=== PATIENT | female | born 1965 | race Caucasian/White ===

== ENCOUNTER 2016-05-28 15:52 | Observation (INO) | payer BC ==
[~2016-05-28] VITALS: Ht 172.7 cm; Wt 77.4 kg
[~2016-05-28 15:52] MED LIST: ATV/1 PO; CLMTP5 TOP; ESCI1TAB10 PO; RIZA10TA18 PO; WARF2TAB PO
[2016-05-28] MEDS ORDERED: MoRPHine SULFATE 4 MG/ML 1 ML CARP\\VIAL IV STA (16:43)
[2016-05-28] MEDS ORDERED: ONDANSETRON INJ 2 MG/ML 2 ML VIAL IV STA (16:43)
[2016-05-28] MEDS ORDERED: SODIUM CHLORIDE 0.9% 1000ML 1,000 ML IV STA (16:43)
[2016-05-28 17:11] LABS: BASO % 0.3 %; BASO ABS # 0.02 K/uL (0-0.2); COMPLETE YES; EOS % 1.6 %; HEMATOCRIT 45.4 % (37-47); IG% 0.1 %; LYMPH % 25.3 %; LYMPH ABS # 1.75 K/uL (1.2-3.4); MEAN CELL VOLUME 94.4 fL (80-100); MEAN CORPUSCULAR HEMOGLOBIN 32.8 pg (25-34); MEAN CORPUSCULAR HGB CONC 34.8 g/dl (32-36); MEAN PLATELET VOLUME 9.4 fL (7.4-10.4); MONO % 7.5 %; NEUT % 65.2 %; PLATELET COUNT 211 K/uL (130-400); RED BLOOD COUNT 4.81 M/uL (4.2-5.4); WHITE BLOOD COUNT 6.92 K/uL (4.8-10.8)
[2016-05-28 17:35] LABS: BUN/CREATININE RATIO 26.9 (10-20); CALCIUM 9.1 mg/dl (8.5-10.1); CREATININE 0.78 mg/dl (0.60-1.20); MAGNESIUM 2.3 mg/dl (1.8-2.4); POTASSIUM 3.6 mmol/L (3.5-5.1)
[2016-05-28 17:38] LABS: C-REACTIVE PROTEIN 3.93 mg/dl (0-0.29)
[2016-05-28] MEDS ORDERED: HYDR-3714 PO (17:57)
[2016-05-28] MEDS ORDERED: GABA1CAP4 PO (17:57)
[2016-05-28] MEDS ORDERED: LXP/20 PO (17:57)
[2016-05-28] MEDS ORDERED: ATV1 PO (17:57)
[2016-05-28] MEDS ORDERED: PREG75CA PO (17:57)
[2016-05-28] MEDS ORDERED: MXL10 PO (17:57)
[2016-05-28] MEDS ORDERED: OPTIRAY 320 IV PRN (18:00)
[2016-05-28] MEDS ORDERED: HYDROmorphone INJ 1 MG/ML SYR IV STA (18:06)
[2016-05-28 18:16] LABS: URINE APPEARANCE CLEAR (CLEAR); URINE BILIRUBIN NEG (NEG); URINE COLOR YELLOW; URINE EPITHELIAL CELL AUTO >30 /lpf (0-5); URINE NITRITE NEG (NEG); URINE SPECIFIC GRAVITY 1.009 (1.000-1.030); UROBILINOGEN NEG (NEG); ZZUR CULT IF INDIC CLEAN CATCH NO
[2016-05-28 18:20] LABS: MANUAL MICROSCOPIC REQUIRED? NO; REVIEW REQ? NO
--- NOTE | 2016-05-28 20:09 | DIAGNOSTIC IMAGING REPORT ---
CT OF THE ABDOMEN AND PELVIS WITH CONTRAST CLINICAL HISTORY: Right lower quadrant abdominal pain. COMPARISON STUDY: None. TECHNIQUE: Following IV administration of 93 mL of Optiray-320, axial images of the abdomen and pelvis were obtained from the lung bases to the proximal femurs. Images were reviewed in the axial, sagittal, and coronal planes. IV contrast was administered without complication. Oral contrast was administered. CT DOSE: 359.56 mGy.cm FINDINGS: The liver, spleen, adrenal glands, kidneys and pancreas are normal. There are post surgical findings within the spine. There is no evidence for a bowel obstruction. A left hip arthroplasty is noted. Note is made of sigmoid diverticulosis without evidence for acute diverticulitis. The appendix is mildly dilated and fluid-filled. There is mild periappendiceal infiltration. There is mild enhancement of the appendiceal wall. No free air or abscess is present. There is no lymphadenopathy. IMPRESSION: Mild acute appendicitis. No free air or abscess. Electronically signed by: Stephen Becker M.D. 05/28/2016 8:08 PM Dictated Date/Time: 05/28/2016 8:05 PM
[2016-05-28] MEDS ORDERED: FENTANYL CITRATE INJ 50 MCG/1 ML 2 ML VIAL ONE ×3 (21:42→22:39)
[2016-05-28] MEDS ORDERED: MIDAZOLAM HCL 1 MG/ML 2ML VIAL ONE (21:42)
[2016-05-28] MEDS ORDERED: ROCURONIUM BROMIDE 10 MG/ML 5 ML VIAL ONE (21:44)
[2016-05-28] MEDS ORDERED: NEOSTIGMINE METHYLSULFATE 5 MG/5 ML SYR ONE (21:44)
[2016-05-28] MEDS ORDERED: PROPOFOL IV EMULSION 10 MG/ML 20 ML VIAL IV ONE (21:44)
[2016-05-28] MEDS ORDERED: SUCCINYLCHOLINE CHLORIDE 20 MG/ML 10 ML VIAL IV ONE (21:44)
[2016-05-28] MEDS ORDERED: ONDANSETRON INJ 2 MG/ML 2 ML VIAL ONE (21:44)
[2016-05-28] MEDS ORDERED: DEXAMETHASONE SOD INJ 4 MG/ML VIAL ONE (21:44)
[2016-05-28] MEDS ORDERED: GLYCOPYRROLATE INJ 0.2 MG/ML VIAL ONE (21:44)
--- NOTE | 2016-05-28 21:59 | History and Physical ---
History & Physical Date May 28, 2016. Chief Complaint abdominal pain History of Present Illness The patient is a 51 year old female with complaints of abdominal pain and a CT scan showing acute appendicitis. She has had pain mainly right sided and associated nausea. She denies fever or chills. She has no urinary symptoms. Past Medical/Surgical History Medical Problems: (1) DJD (degenerative joint disease) of hip Additional History Hepatic Disease: No Endocrine Disorder: No Kidney Disease: No Hypertension: No Heart Disease: No Bleeding Tendencies: No Infectious Diseases: No Other: Interstitial cystitis Chronic back pain GERD DJD s/p SUMA s/p L THR s/p back surgery Allergies Coded Allergies: Amoxicillin (Verified Adverse Reaction, Unknown, thrust, yeast infx, ) Cephalexin (Verified Adverse Reaction, Unknown, THRUSH, YEAST INFX, 11/23/15 ) Ciprofloxacin (Verified Adverse Reaction, Unknown, THRUSH, YEAST INFX, 11/22) Clotrimazole (Verified Adverse Reaction, Unknown, THRUSH, 11/23/15) Doxycycline (Verified Adverse Reaction, Unknown, THRUSH, YEAST INFX, ) Metronidazole (Verified Adverse Reaction, Unknown, THRUSH, 11/15/15) Home Medications Scheduled Escitalopram Oxalate (Escitalopram Oxalate), 20 MG PO QAM Estradiol (Estradiol), 1 PATCH TOP WEEKLY Scheduled PRN Gabapentin (Gabapentin), 300 MG PO BID PRN for Pain Hydrocodon/Acetaminophen 7.5MG/300MG (Vicodin Es (7.5MG/300MG)), 1 TAB PO Q8 PRN for Pain Lorazepam (Lorazepam), 1 MG PO HS PRN for Anxiety and/or Sedation Pregabalin (Lyrica), 75 MG PO BID PRN for Pain Rizatriptan Benzoate (Rizatriptan Benzoate), 10 MG PO UD PRN for Migraine Physical Examination Skin: warm/dry, no rash Eyes: normal inspection, EOMI, sclerae normal ENT: normal ENT inspection Head: normocephalic, atraumatic Neck: supple, no adenopathy, trachea midline Respiratory/Chest: lungs clear, normal breath sounds, no respiratory distress Cardiovascular: regular rate, rhythm, no edema, no murmur Abdomen / GI: normal bowel sounds, + pertinent finding (RLQ tenderness) Back: normal inspection Extremities: normal inspection Genitourinary - Female: external genitalia normal Neurologic/Psych: no motor/sensory deficits, alert, oriented x 3 Addiitonal Comments: CT OF THE ABDOMEN AND PELVIS WITH CONTRAST CLINICAL HISTORY: Right lower quadrant abdominal pain. COMPARISON STUDY: None. TECHNIQUE: Following IV administration of 93 mL of Optiray-320, axial images of the abdomen and pelvis were obtained from the lung bases to the proximal femurs. Images were reviewed in the axial, sagittal, and coronal planes. IV contrast was administered without complication. Oral contrast was administered. CT DOSE: 359.56 mGy.cm FINDINGS: The liver, spleen, adrenal glands, kidneys and pancreas are normal. There are post surgical findings within the spine. There is no evidence for a bowel obstruction. A left hip arthroplasty is noted. Note is made of sigmoid diverticulosis without evidence for acute diverticulitis. The appendix is mildly dilated and fluid-filled. There is mild periappendiceal infiltration. There is mild enhancement of the appendiceal wall. No free air or abscess is present. There is no lymphadenopathy. IMPRESSION: Mild acute appendicitis. No free air or abscess. Diagnosis Acute appendicitis ASA Classification: ASA Class II Plan of Treatment -IVF -IV mefoxin -to OR for lap appendectomy
[2016-05-28] MEDS ORDERED: POLYETHYLENE (MIRALAX) 17 GM PACK PO PRN (22:00)
[2016-05-28] MEDS ORDERED: ACETAMINOPHEN 325 MG TAB PO PRN (22:00)
[2016-05-28] MEDS ORDERED: ONDANSETRON INJ 2 MG/ML 2 ML VIAL IV PRN (22:00)
[2016-05-28] MEDS ORDERED: MoRPHine SULFATE 2 MG/ML CARP IV PRN (22:00)
[2016-05-28] MEDS ORDERED: BUPIVACAINE/EPINEPHRINE 0.5% MPF 1:200,000 30 ML VIAL ONE (22:00)
[2016-05-28] MEDS ORDERED: MAGNESIUM HYDROXIDE SUSP 30 ML UDC PO PRN (22:00)
[2016-05-28] MEDS ORDERED: ALUMINUM/MAGNESIUM/SIMETH (MAALOX MAX) 30 ML UDC PO PRN (22:00)
[2016-05-28] MEDS ORDERED: ZOLPIDEM TARTRATE 5 MG TAB PO PRN (22:00)
[2016-05-28] MEDS ORDERED: RIZATRIPTAN BENZOATE 10 MG TAB PO PRN (22:15)
[2016-05-28] MEDS ORDERED: GABAPENTIN 300 MG CAP PO PRN (22:15)
[2016-05-28] MEDS ORDERED: LORAZEPAM 1 MG TAB PO PRN (22:15)
[2016-05-28] MEDS ORDERED: PREGABALIN 75 MG CAP PO PRN (22:15)
[2016-05-28] MEDS ORDERED: EpHEDrine SULFATE 50MG/5ML SYR ONE (22:31)
[2016-05-28] MEDS ORDERED: IV FLUIDS COMPLETED PRN (22:45)
--- NOTE | 2016-05-28 22:54 | [facility] Post Operative Brief Note ---
Immediate Operative Summary Operative Date May 28, 2016. Pre-Operative Diagnosis Acute Appendicitis Post-Operative Diagnosis Acute Appendicitis Procedure(s) Performed Laparoscopic Appendectomy Surgeon Dr. Jonathan Yoon Disaster Recovery Analyst Surgeon(s) None Estimated Blood Loss 15ml Findings Above Specimens A. Appendix Drains none Anesthesia GETA w/marcaine Complication(s) None Disposition Recovery Room / PACU
[2016-05-28] MEDS: MoRPHine SULFATE 4 MG/ML 1 ML CARP\\VIAL IV PRN (23:31)
--- NOTE | 2016-05-28 23:48 | Anesthesiology Progress Note ---
Anesthesia Post Op Note Date & Time May 28, 2016 at 23:47 Vital Signs Pain Intensity: 8.0 Vital Signs Past 12 Hours Date Time Temp Pulse Resp B/P Pulse Ox O2 Delivery O2 Flow Rate FiO2 05/28/16 23:40 67 15 120/74 94 Room Air 05/28/16 23:30 69 19 115/72 100 Mask 5 05/28/16 23:20 67 16 113/60 100 Mask 5 05/28/16 23:10 35.8 75 16 109/52 100 Mask 5 05/28/16 21:32 66 20 147/40 97 Room Air 05/28/16 19:49 66 18 132/78 96 Room Air 05/28/16 18:00 76 18 118/72 96 Room Air 05/28/16 16:20 36.5 85 22 134/56 96 Room Air Notes Mental Status: alert / awake / arousable, participated in evaluation Pt Amnestic to Procedure: Yes Nausea / Vomiting: adequately controlled Pain: adequately controlled, improving with treatment Airway Patency, RR, SpO2: stable & adequate BP & HR: stable & adequate Hydration State: stable & adequate Anesthetic Complications: no major complications apparent Patient with c/o abdominal pain which is improving with IV opioids and also c/o sore throat (likely from intubation/ETT/OG tube). Informed to have icechips and cool liquids and should improve over the next 1-2 days. All questions answered.
[2016-05-29] VITALS (8 sets, daily range): BP systolic 82–114; BP diastolic 47–77; PULSE 61–67; TEMP 36–36.6; O2SAT 91–94; Ht 172.7 cm; Wt 77.4 kg
[2016-05-29] MEDS ORDERED: HYDROmorphone INJ 1 MG/ML SYR IV PRN
[2016-05-29] MEDS ORDERED: FENTANYL CITRATE INJ 50 MCG/1 ML 2 ML VIAL IV PRN
[2016-05-29] MEDS ORDERED: ATROPINE SULFATE 0.1 MG/ML 5ML SYR IV PRN
[2016-05-29] MEDS ORDERED: EpHEDrine SULFATE INJ 50 MG/ML AMP IV PRN
[2016-05-29] MEDS ORDERED: ONDANSETRON INJ 2 MG/ML 2 ML VIAL IV PRN
[2016-05-29] MEDS: MoRPHine SULFATE 4 MG/ML 1 ML CARP\\VIAL IV PRN (00:27)
[2016-05-29] MEDS: LACTATED RINGER'S 1000ML 1,000 ML IV SCH ×2 (00:28→08:37)
--- NOTE | 2016-05-29 00:30 | OPERATIVE REPORT ---
DATE OF OPERATION: 05/28/2016 PREOPERATIVE DIAGNOSIS: Acute appendicitis. POSTOPERATIVE DIAGNOSIS: Same. PROCEDURE PERFORMED: Laparoscopic appendectomy. SURGEON: Dr. Jonathan Yoon. DRAFTER: None. ANESTHESIA: General endotracheal with 0.5% Marcaine with epinephrine local. ESTIMATED BLOOD LOSS: 15 mL. DRAINS: None. COMPLICATIONS: None. SPECIMENS: Appendix to pathology. INDICATION FOR PROCEDURE: This is a 51-year-old female, who came in complaining of abdominal pain, underwent a complete workup with a CT scan that showed acute appendicitis. We talked to her in detail about this and recommended a laparoscopic appendectomy. We went over the risks in detail. DESCRIPTION OF PROCEDURE: The patient was taken to the OR and underwent excellent general endotracheal anesthesia. Abdomen was prepped and draped in normal sterile fashion. A transverse supraumbilical incision was made. Attention was placed on the anterior abdominal wall and a Veress needle was inserted without difficulty. Good pneumoperitoneum was achieved to 15 mmHg pressure. A visualized 11 port was then placed. A 5 suprapubic, 5 right upper quadrant and a 12 left lower quadrant ports were placed in normal fashion. A good diagnostic lap was performed. She had some adhesions, which were taken down. Her cecum was identified. A blunt grasper was placed on the tenia of the cecum and this was placed on tension. The appendix was rolled back and was retrocecal. Using a Harmonic scalpel, the base of the appendix was identified, a window was created in the mesentery and this enabled a SHIRLENE stapler to transect the appendix at its base. Once this was done, attention was placed on the base of the appendix and the rest of the appendix was freed using a Harmonic scalpel. Once the entire appendix was freed up, this was brought out with an Endobag and sent for pathologic evaluation. Pneumoperitoneum was reestablished. The abdomen was irrigated out with a liter of saline. There was some bleeding on the anterior abdominal wall where the adhesions were taken down. This was cauterized. There was no further bleeding during the case. This 15 mL of blood loss total. The terminal ileum appeared to be normal and no pelvic abnormalities. The appendix was really not perforated or gangrenous. Ports were then removed. Pneumoperitoneum was decompressed. 0 Vicryl was used to close the fascial defect at the 12 and 11 port. 0.5% Marcaine with epinephrine local was used to create a local field block. Interrupted Vicryl was used to close the skin. Steri-Strips and benzoin were used to reinforce the incision. Sterile dressings were applied. The patient tolerated the procedure well without any complications, sent to post-recovery for a period of observation and then will be sent to the floor for her care. I attest to the content of the Intraoperative Record and any orders documented therein. Any exceptions are noted below. NUSRAT
[2016-05-29] MEDS: CEFOXITIN IV 2,000 MG in DEXTROSE 5% 50ML 50 ML IV SCH ×2 (00:47→08:37)
[2016-05-29] MEDS: OXYCODONE/ACETAMINOPHEN 5-325 TAB PO PRN ×2 (03:37→07:35)
[2016-05-29] MEDS ORDERED: ESCITALOPRAM OXALATE 20 MG TAB PO SCH (09:00)
[2016-05-29] MEDS ORDERED: OXYC-57 PO (09:21)
--- NOTE | 2016-05-29 09:21 | Surgery Progress Note ---
Surgery Progress Note Date of Service May 29, 2016. Subjective Post OP Day: 1 + diet (regular), + feeling well, + flatus, No bowel movement, No complaints, No nausea, No vomiting Objective Vital Signs: Date Time Temp Pulse Resp B/P Pulse Ox O2 Delivery O2 Flow Rate FiO2 05/29/16 07:23 Room Air 05/29/16 07:01 36.6 62 16 82/47 91 Room Air 05/29/16 03:15 36.6 61 16 89/55 94 Room Air 96/60 05/29/16 02:15 36.6 63 16 94/61 92 Room Air 05/29/16 01:15 36.4 62 16 101/66 93 Room Air 05/29/16 00:45 36.0 62 16 114/77 94 Room Air 05/29/16 00:25 Room Air 05/29/16 00:25 36.0 66 16 100/62 Room Air 05/29/16 00:25 93 Room Air 05/29/16 00:15 36.0 67 16 100/62 93 Room Air 05/29/16 00:00 36.4 67 15 120/78 92 Room Air 05/28/16 23:50 72 15 117/75 94 Room Air 05/28/16 23:40 67 15 120/74 94 Room Air 05/28/16 23:30 69 19 115/72 100 Mask 5 05/28/16 23:20 67 16 113/60 100 Mask 5 05/28/16 23:10 35.8 75 16 109/52 100 Mask 5 05/28/16 21:32 66 20 147/40 97 Room Air 05/28/16 19:49 66 18 132/78 96 Room Air 05/28/16 18:00 76 18 118/72 96 Room Air 05/28/16 16:20 36.5 85 22 134/56 96 Room Air General Appearance: WD/WN, no apparent distress Head: normocephalic, atraumatic Neck: supple, trachea midline Respiratory/Chest: lungs clear Cardiovascular: regular rate, rhythm, no gallop, no murmur Abdomen: normal bowel sounds, non distended, soft, + tenderness Incision(s): clean, dry, intact Extremities: non-tender, no pedal edema Laboratory Results: Results Past 24 Hours Test 05/28/16 17:00 05/28/16 18:02 Range/Units White Blood Count 6.92 4.8-10.8 K/uL Red Blood Count 4.81 4.2-5.4 M/uL Hemoglobin 15.8 12.0-16.0 g/dL Hematocrit 45.4 37-47 % Mean Corpuscular Volume 94.4 80-100 fL Mean Corpuscular Hemoglobin 32.8 25-34 pg Mean Corpuscular Hemoglobin Concent 34.8 32-36 g/dl Platelet Count 211 130-400 K/uL Mean Platelet Volume 9.4 7.4-10.4 fL Neutrophils (%) (Auto) 65.2 % Lymphocytes (%) (Auto) 25.3 % Monocytes (%) (Auto) 7.5 % Eosinophils (%) (Auto) 1.6 % Basophils (%) (Auto) 0.3 % Neutrophils # (Auto) 4.51 1.4-6.5 K/uL Lymphocytes # (Auto) 1.75 1.2-3.4 K/uL Monocytes # (Auto) 0.52 0.11-0.59 K/uL Eosinophils # (Auto) 0.11 0-0.5 K/uL Basophils # (Auto) 0.02 0-0.2 K/uL RDW Standard Deviation 46.2 36.4-46.3 fL RDW Coefficient of Variation 13.3 11.5-14.5 % Immature Granulocyte % (Auto) 0.1 % Immature Granulocyte # (Auto) 0.01 0.00-0.02 K/uL Erythrocyte Sedimentation Rate 27 0-21 mm/hr Sodium Level 140 136-145 mmol/L Potassium Level 3.6 3.5-5.1 mmol/L Chloride Level 104 98-107 mmol/L Carbon Dioxide Level 29 21-32 mmol/L Anion Gap 7.0 3-11 mmol/L Blood Urea Nitrogen 21 7-18 mg/dl Creatinine 0.78 0.60-1.20 mg/dl Est Creatinine Clear Calc Drug Dose 91.2 ml/min Estimated GFR () 100.6 Estimated GFR (Non- 86.8 BUN/Creatinine Ratio 26.9 10-20 Random Glucose 74 70-99 mg/dl Calcium Level 9.1 8.5-10.1 mg/dl Magnesium Level 2.3 1.8-2.4 mg/dl Total Bilirubin 0.4 0.2-1 mg/dl Aspartate Amino Transf (AST/SGOT) 21 15-37 U/L Alanine Aminotransferase (ALT/SGPT) 39 12-78 U/L Alkaline Phosphatase 125 45-117 U/L C-Reactive Protein 3.93 0-0.29 mg/dl Total Protein 7.3 6.4-8.2 gm/dl Albumin 3.7 3.4-5.0 gm/dl Globulin 3.6 2.5-4.0 gm/dl Albumin/Globulin Ratio 1.0 0.9-2 Lipase 93 73-393 U/L Urine Color YELLOW Urine Appearance CLEAR CLEAR Urine pH 7.0 4.5-7.5 Urine Specific [place] 1.009 1.000-1.030 Urine Protein NEG NEG Urine Glucose (UA) NEG NEG Urine Ketones NEG NEG Urine Occult Blood TRACE NEG Urine Nitrite NEG NEG Urine Bilirubin NEG NEG Urine Urobilinogen NEG NEG Urine Leukocyte Esterase NEG NEG Urine WBC (Auto) 1-5 0-5 /hpf Urine RBC (Auto) 0-4 0-4 /hpf Urine Hyaline Casts (Auto) 1-5 0-5 /lpf Urine Epithelial Cells (Auto) >30 0-5 /lpf Urine Bacteria (Auto) NEG NEG Assessment & Plan acute appendicitis -doing well -discharge home
--- NOTE | 2016-05-29 09:28 | Discharge Instructions ---
Discharge Instructions Date of Service May 29, 2016. Admission Reason for Admission: Acute Appendicitis Discharge Discharge Diagnosis / Problem: acute appendicitis Discharge Goals Goal(s): Therapeutic intervention Activity Recommendations Activity Limitations: per Instructions/Follow-up section Lifting Limitations: no more than 25 pounds Exercise/Sports Limitations: until after follow-up appointment May Resume Sexual Activity: when tolerated Shower/Bathe: no limitations Driving or Machine Use: resume 3 days after discharge (as long as not taking narcotics) . Current Hospital Diet Patient's current hospital diet: Regular Diet Discharge Diet Recommended Diet: Regular Diet Procedures Procedures Performed: Laparoscopic Appendectomy Pending Studies Studies pending at discharge: no Work Instructions Return To Work: after follow-up Additional Instructions: return on light duty as tolerated Medical Emergencies . Who to Call and When: Medical Emergencies: If at any time you feel your situation is an emergency, please call 911 immediately. . Non-Emergent Contact Non-Emergency issues call your: Primary Care Provider, Surgeon Call Non-Emergent contact if: temperature is above 101.5, your pain is worsening, your pain is unusual for you, your pain is concerning you, wound has increased redness, wound has increased pain, you have any medication questions . "Provider Documentation" section prepared by Jonathan Yoon. VTE Core Measure Inpt VTE Proph given/why not?: SCD's [place] Drug Monitoring Program Search Results: patient reviewed within database
--- NOTE | 2016-05-29 09:46 | DISCHARGE SUMMARY ---
DATE OF DISCHARGE: 05/29/2016 DIAGNOSES: 1. Acute appendicitis. 2. Interstitial cystitis. 3. Degenerative joint disease. 4. Gastroesophageal reflux disease. ATTENDING PHYSICIAN: Dr. Jonathan Yoon. CONSULTS: None. PROCEDURE PERFORMED: Laparoscopic appendectomy on 05/28/2016. HISTORY OF PRESENT ILLNESS: This is a 51-year-old female admitted through the ER with abdominal pain, underwent a complete workup, was found to have acute appendicitis. She was given IV fluids, IV antibiotics, and was taken to the OR for laparoscopic appendectomy. HOSPITAL COURSE: The patient was same-day admission through the ER, was taken straight to the operating room, was found to have an uncomplicated simple appendicitis, underwent laparoscopic appendectomy. Postop, she did well. She was moved to the floor, advanced her diet without difficulty, had no nausea, no vomiting, remained afebrile. She received another dose of her IV antibiotics and continued to progress so that she was discharged to home on postoperative day #1. DISCHARGE MEDICATIONS: Percocet 1 tablet p.o. q. 4 hours p.r.n. pain, escitalopram oxalate 20 mg p.o. daily, estradiol 0.5 mg 1 patch weekly, gabapentin 300 mg p.o. b.i.d. as needed, Vicodin 1 tablet p.o. q. 8 p.r.n. pain, lorazepam 1 mg p.o. at bedtime p.r.n. anxiety, Lyrica 75 mg p.o. b.i.d. p.r.n. pain, rizatriptan benzoate 10 mg p.o. as needed. DIET: Regular as tolerated. ACTIVITY: No strenuous activity for 3 weeks. FOLLOWUP: Follow up in my office in 2 weeks.
--- NOTE | 2016-05-31 16:12 | EMERGENCY ROOM VISIT NOTE ---
History First contact with patient: 16:30 Chief Complaint: ABDOMINAL PAIN Stated Complaint: ACUTE APPENDICITIS History of Present Illness The patient is a 51 year old female who presents to the Emergency Department by private vehicle and directed to the emergency Department for evaluation of her RIGHT lower quadrant abdominal pain. The patient reports that she developed epigastric abdominal discomfort yesterday. She reports the pain is now focused in the RIGHT lower quadrant. She reports that she was seen at her primary care provider's office today and directed to the emergency Department for further evaluation and management. The patient reports prior history of hysterectomy. There is been no other previous abdominal surgeries. She rates her current discomfort is 7/10. She denies any fevers, chills, headaches, dizziness, lightheadedness, chest pain, palpitations, shortness of breath, hematochezia, melena, hematuria, or dysuria. Review of Systems A complete 10-point Review of Systems was discussed with the patient, with pertinent positives and negatives listed in the History of Present Illness. All remaining Review of Systems questions can be considered negative unless otherwise specified. Past Medical/Surgical History Medical Problems: (1) Acute appendicitis (2) DJD (degenerative joint disease) of hip Social History Smoking Status: Current Every Day Smoker Smokeless Tobacco Use: No Drug Use: none Marital Status: Housing Status: lives with family Current/Historical Medications Scheduled Escitalopram Oxalate (Escitalopram Oxalate), 20 MG PO QAM Estradiol (Estradiol), 1 PATCH TOP WEEKLY Scheduled PRN Gabapentin (Gabapentin), 300 MG PO BID PRN for Pain Hydrocodon/Acetaminophen 7.5MG/300MG (Vicodin Es (7.5MG/300MG)), 1 TAB PO Q8 PRN for Pain Lorazepam (Lorazepam), 1 MG PO HS PRN for Anxiety and/or Sedation Oxycodone/Acetaminophen 5MG/325MG (Percocet 5MG/325MG), 1 TABLET PO Q4H PRN for Pain Pregabalin (Lyrica), 75 MG PO BID PRN for Pain Rizatriptan Benzoate (Rizatriptan Benzoate), 10 MG PO UD PRN for Migraine Allergies Coded Allergies: Amoxicillin (Verified Adverse Reaction, Unknown, thrust, yeast infx, ) Cephalexin (Verified Adverse Reaction, Unknown, THRUSH, YEAST INFX, 11/23/15 ) Ciprofloxacin (Verified Adverse Reaction, Unknown, THRUSH, YEAST INFX, 11/22) Clotrimazole (Verified Adverse Reaction, Unknown, THRUSH, 11/23/15) Doxycycline (Verified Adverse Reaction, Unknown, THRUSH, YEAST INFX, ) Metronidazole (Verified Adverse Reaction, Unknown, THRUSH, 11/15/15) Physical Exam Vital Signs Date Time Temp Pulse Resp B/P Pulse Ox O2 Delivery O2 Flow Rate FiO2 05/28/16 21:32 66 20 147/40 97 Room Air 05/28/16 19:49 66 18 132/78 96 Room Air 05/28/16 18:00 76 18 118/72 96 Room Air 05/28/16 16:20 36.5 85 22 134/56 96 Room Air Pain Rating (0-10): 7 Physical Exam VITAL SIGNS - Vital signs and nursing notes were reviewed. GENERAL - 51-year-old female appearing her stated age who is in no acute distress. Communicates well with provider and answers questions appropriately. LUNGS - Chest wall symmetric without accessory muscle use, intercostals retractions, or central cyanosis. Normal vesicular breath sounds CTA B/L. No wheezes, rales, or rhonchi appreciated. CARDIAC - RRR with S1/S2. No murmur, rubs, or gallops appreciated. ABDOMEN - Abdominal contour flat and without pulsations or visible masses. BS normoactive all four quadrants. Moderate tenderness to palpation appreciated in the RIGHT lower quadrant. No guarding. No Rebound Tenderness. Negative Rovsing' s. Negative Méndez's. No palpable masses, hepatosplenomegaly, or ascites noted. PSYCH - A&Ox3 and cooperates fully with examiner. Pt is very pleasant and interacts well with examiner. Medical Decision & Procedures ER Provider Diagnostic Interpretation: Radiological imaging and reports were reviewed by myself. Radiologist's Interpretation as follows: CT OF THE ABDOMEN AND PELVIS WITH CONTRAST CLINICAL HISTORY: Right lower quadrant abdominal pain. COMPARISON STUDY: None. TECHNIQUE: Following IV administration of 93 mL of Optiray-320, axial images of the abdomen and pelvis were obtained from the lung bases to the proximal femurs. Images were reviewed in the axial, sagittal, and coronal planes. IV contrast was administered without complication. Oral contrast was administered. CT DOSE: 359.56 mGy.cm FINDINGS: The liver, spleen, adrenal glands, kidneys and pancreas are normal. There are post surgical findings within the spine. There is no evidence for a bowel obstruction. A left hip arthroplasty is noted. Note is made of sigmoid diverticulosis without evidence for acute diverticulitis. The appendix is mildly dilated and fluid-filled. There is mild periappendiceal infiltration. There is mild enhancement of the appendiceal wall. No free air or abscess is present. There is no lymphadenopathy. IMPRESSION: Mild acute appendicitis. No free air or abscess. Laboratory Results 05/28/16 17:00 Red Blood Count 4.81, Mean Corpuscular Volume 94.4, Mean Corpuscular Hemoglobin 32.8, Mean Corpuscular Hemoglobin Concent 34.8, Mean Platelet Volume 9.4, Neutrophils (%) (Auto) 65.2, Lymphocytes (%) (Auto) 25.3, Monocytes (%) (Auto) 7.5, Eosinophils (%) (Auto) 1.6, Basophils (%) (Auto) 0.3, Neutrophils # (Auto) 4.51, Lymphocytes # (Auto) 1.75, Monocytes # (Auto) 0.52, Eosinophils # (Auto) 0.11, Basophils # (Auto) 0.02 05/28/16 17:00 Test 05/28/16 17:00 05/28/16 18:02 White Blood Count 6.92 K/uL (4.8-10.8) Red Blood Count 4.81 M/uL (4.2-5.4) Hemoglobin 15.8 g/dL (12.0-16.0) Hematocrit 45.4 % (37-47) Mean Corpuscular Volume 94.4 fL (80-100) Mean Corpuscular Hemoglobin 32.8 pg (25-34) Mean Corpuscular Hemoglobin Concent 34.8 g/dl (32-36) Platelet Count 211 K/uL (130-400) Mean Platelet Volume 9.4 fL (7.4-10.4) Neutrophils (%) (Auto) 65.2 % Lymphocytes (%) (Auto) 25.3 % Monocytes (%) (Auto) 7.5 % Eosinophils (%) (Auto) 1.6 % Basophils (%) (Auto) 0.3 % Neutrophils # (Auto) 4.51 K/uL (1.4-6.5) Lymphocytes # (Auto) 1.75 K/uL (1.2-3.4) Monocytes # (Auto) 0.52 K/uL (0.11-0.59) Eosinophils # (Auto) 0.11 K/uL (0-0.5) Basophils # (Auto) 0.02 K/uL (0-0.2) RDW Standard Deviation 46.2 fL (36.4-46.3) RDW Coefficient of Variation 13.3 % (11.5-14.5) Immature Granulocyte % (Auto) 0.1 % Immature Granulocyte # (Auto) 0.01 K/uL (0.00-0.02) Erythrocyte Sedimentation Rate 27 mm/hr (0-21) Anion Gap 7.0 mmol/L (3-11) Est Creatinine Clear Calc Drug Dose 91.2 ml/min Estimated GFR () 100.6 Estimated GFR (Non- 86.8 BUN/Creatinine Ratio 26.9 (10-20) Calcium Level 9.1 mg/dl (8.5-10.1) Magnesium Level 2.3 mg/dl (1.8-2.4) Total Bilirubin 0.4 mg/dl (0.2-1) Aspartate Amino Transf (AST/SGOT) 21 U/L (15-37) Alanine Aminotransferase (ALT/SGPT) 39 U/L (12-78) Alkaline Phosphatase 125 U/L (45-117) C-Reactive Protein 3.93 mg/dl (0-0.29) Total Protein 7.3 gm/dl (6.4-8.2) Albumin 3.7 gm/dl (3.4-5.0) Globulin 3.6 gm/dl (2.5-4.0) Albumin/Globulin Ratio 1.0 (0.9-2) Lipase 93 U/L (73-393) Urine Color YELLOW Urine Appearance CLEAR (CLEAR) Urine pH 7.0 (4.5-7.5) Urine Specific Outlook 1.009 (1.000-1.030) Urine Protein NEG (NEG) Urine Glucose (UA) NEG (NEG) Urine Ketones NEG (NEG) Urine Occult Blood TRACE (NEG) Urine Nitrite NEG (NEG) Urine Bilirubin NEG (NEG) Urine Urobilinogen NEG (NEG) Urine Leukocyte Esterase NEG (NEG) Urine WBC (Auto) 1-5 /hpf (0-5) Urine RBC (Auto) 0-4 /hpf (0-4) Urine Hyaline Casts (Auto) 1-5 /lpf (0-5) Urine Epithelial Cells (Auto) >30 /lpf (0-5) Urine Bacteria (Auto) NEG (NEG) Medications Administered Medications (Trade) Dose Ordered Sig/Lyla Route Start Time Stop Time Status Last Admin Dose Admin Sodium Chloride (Nss 1000ml) 1,000 ml @ 200 mls/hr Q5H STAT IV 05/28/16 16:43 05/28/16 21:42 DC 05/28/16 17:13 200 MLS/HR Morphine Sulfate (MoRPHine SULFATE INJ) 4 mg NOW STAT IV 05/28/16 16:43 05/28/16 16:45 DC 05/28/16 17:12 4 MG Ondansetron HCl (Zofran Inj) 4 mg NOW STAT IV 05/28/16 16:43 05/28/16 16:45 DC 05/28/16 17:12 4 MG Hydromorphone HCl 1 mg 1 mg NOW STAT IV 05/28/16 18:06 05/28/16 18:07 DC 05/28/16 18:33 1 MG Lactated Ringer's (Lr 1000ml) 1,000 ml @ 100 mls/hr Q10H IV 05/28/16 21:59 05/29/16 10:35 DC 05/29/16 08:37 100 MLS/HR Morphine Sulfate (MoRPHine SULFATE INJ) 2 mg Q1H PRN IV 05/28/16 22:00 05/29/16 10:35 DC 05/29/16 05:46 2 MG Oxycodone/ Acetaminophen (Percocet 5-325mg Tab) `1-2 tabs for pain 1 tab ... Q4H PRN PO 05/28/16 22:00 05/29/16 10:35 DC 05/29/16 07:35 2 TAB Bupivacaine HCl/ Epinephrine Bitart (Sensorcaine/ Epinephrine 0.5% Mpf 1:200,000) 30 ml STK-MED ONCE .ROUTE 05/28/16 22:00 05/28/16 22:03 DC 05/28/16 22:00 20 ML ED Course Patient was seen and evaluated by myself. Labs were drawn, saline lock in place. Patient was hydrated with normal saline at a rate of 200 mL per hour. She was treated with 4 mg morphine and 4 mg Zofran intravenously for pain. CT the abdomen and pelvis with IV and oral contrast was ordered. Laboratory results demonstrate no acute leukocytosis, worrisome anemia, or bandemia. The patient's ESR and CRP are both elevated. Urinalysis does not suggest infection. The patient was treated with an additional 1 mg Dilaudid for continued pain. CT results as above. Laboratory results and imaging studies were reviewed with the patient who acknowledges understanding. I did discuss the case with general surgery who agrees to admit the patient for laparoscopic appendectomy. Patient admitted in stable condition. Medical Decision Given the patient's presentation and exam findings, I did elect to perform the above-mentioned workup. The patient presents today with pain to the RIGHT lower quadrant. She has no fever. There is no leukocytosis. She has persistent reproducible pain in the RIGHT lower quadrant area. CT confirms suspicion of acute appendicitis. Her pain was adequately controlled the emergency department. She was admitted to general surgery for intervention. Patient admitted in stable condition. In the evaluation and treatment of this patient, the following differential diagnoses were considered: Gastritis, gastritis, duodenitis, cholecystitis, ascending cholangitis, choledocholithiasis, amongst others. Departure Information Dispostion Admitted as an inpatient Condition FAIR Prescriptions Oxycodone/Acetaminophen 5MG/325MG (PERCOCET 5MG/325MG) Tab 1 TABLET PO Q4H Y for Pain, #30 TAB Prov: Jonathan Yoon M.D. 05/29/16 Referrals Martita Wilkerson DO (PCP) Forms Call Back Authorization, HOME CARE DOCUMENTATION FORM, IMPORTANT VISIT INFORMATION Patient Instructions [facility] Work Instructions Return To Work: after follow-up Additional Work Instructions: return on light duty as tolerated
== END 2016-05-29 10:34 | disposition home or self-care (01) ==
LOC: ENRESERVTM → ENRESERVDT → C.EDB 15:53 → C.MSW 22:02
PROVIDERS: ADMIT Surgery; ATTEND Surgery
DX: K35.80 Unspecified acute appendicitis (principal); N30.10 Interstitial cystitis (chronic) without hematuria; M16.10 Unilateral primary osteoarthritis, unspecified hip; K21.9 Gastro-esophageal reflux disease without esophagitis

== ENCOUNTER → 2016-07-16 | Outpatient (CLI) | payer BC ==
[~2016-07-16] MED LIST changes: -ATV/1 PO; +ATV1 PO; -ESCI1TAB10 PO; +GABA1CAP4 PO; +HYDR-3714 PO; +LXP/20 PO; +OXYC-57 PO; +PREG75CA PO; -RIZA10TA18 PO; +RIZA10TA21 PO; -WARF2TAB PO
== END | disposition home or self-care (01) ==
LOC: C.RDSM 14:45
PROVIDERS: ATTEND Physical Medicine & Rehabilitation Sports Medicine
DX: M25.552 Pain in left hip (principal); Z96.642 Presence of left artificial hip joint

== ENCOUNTER → 2016-10-15 | Outpatient (CLI) | payer BC ==
[~2016-10-15] MED LIST changes: +MXL10 PO; -OXYC-57 PO; -RIZA10TA21 PO
--- NOTE | 2016-10-15 15:42 | MAMMOGRAPHY REPORT ---
BILATERAL DIGITAL SCREENING MAMMOGRAM TOMOSYNTHESIS WITH CAD: 10/15/2016 CLINICAL HISTORY: Routine screening. TECHNIQUE: Breast tomosynthesis in addition to standard 2D mammography was performed. Current study was also evaluated with a Computer Aided Detection (CAD) system. COMPARISON: Comparison is made to exams dated: 10/10/2015 mammogram, 10/06/2014 mammogram, 09/29/2013 m ammogram, 09/15/2012 mammogram, 09/12/2011 mammogram, and 09/04/2010 mammogram - [facility] nter. BREAST COMPOSITION: The tissue of both breasts is heterogeneously dense, which may obscure small mas ses. FINDINGS: The parenchymal pattern is unchanged. No developing mass, architectural distortion or clus ter of suspicious microcalcifications is seen in either breast. IMPRESSION: ACR BI-RADS CATEGORY 2: BENIGN There is no mammographic evidence of malignancy. A 1 year screening mammogram is recommended. The pa tient will receive written notification of the results. Approximately 10% of breast cancers are not detected with mammography. A negative mammographic report should not delay biopsy if a clinically suggestive mass is present. Angelica Delgado M.D. ay/:10/15/2016 15:24:32 [place] Pumper: Jerica SANTACRUZ(Inna)([place]), [facility] letter sent: Normal 1/2 BI-RADS Code: ACR BI-RADS Category 2: Benign
== END | disposition home or self-care (01) ==
LOC: C.MAMM 14:54
PROVIDERS: ATTEND Family Medicine
DX: Z12.31 Encounter for screening mammogram for malignant neoplasm of breast (principal)

== ENCOUNTER → 2017-10-21 | Outpatient (CLI) | payer BC ==
[~2017-10-21] MED LIST changes: -CLMTP5 TOP; +GABA-1219 PO; -GABA1CAP4 PO; -HYDR-3714 PO; +HYDR-3983 PO; -MXL10 PO; +RIZA10TA21 PO
--- NOTE | 2017-10-22 14:44 | MAMMOGRAPHY REPORT ---
BILATERAL DIGITAL SCREENING MAMMOGRAM TOMOSYNTHESIS WITH CAD: 10/21/2017 CLINICAL HISTORY: Routine screening. Patient has no complaints. TECHNIQUE: The study was acquired using full field digital technology and interpreted from soft copy. Breast tomosynthesis in addition to standard 2D mammography was performed. Current study was also ev aluated with a Computer Aided Detection (CAD) system. COMPARISON: Comparison is made to exams dated: 10/15/2016 mammogram, 10/10/2015 mammogram, 10/06/2014 m ammogram, 09/29/2013 mammogram, 09/15/2012 mammogram, and 09/12/2011 mammogram - [facility] nter. BREAST COMPOSITION: The tissue of both breasts is heterogeneously dense, which may obscure small mass es. FINDINGS: The parenchymal pattern is unchanged. No developing mass, architectural distortion or cluster of susp icious microcalcifications is seen in either breast. IMPRESSION: ACR BI-RADS CATEGORY 2: BENIGN There is no mammographic evidence of malignancy. A 1 year screening mammogram is recommended.( 019) The patient will receive written notification of the results. Some breast cancers are not detected with mammography. A negative mammographic report should not estella y biopsy if a clinically suggestive mass is present. Angelica Delgado M.D. ay/:10/21/2017 17:45:21 Computer System Validation Specialist: RT Hilda(Inna)(M), [facility] letter sent: Normal 1/2 BI-RADS Code: ACR BI-RADS Category 2: Benign
== END | disposition home or self-care (01) ==
LOC: C.MAMM 11:18
PROVIDERS: ATTEND Family Medicine
DX: Z12.31 Encounter for screening mammogram for malignant neoplasm of breast (principal)

== ENCOUNTER 2020-07-17 18:02 | Inpatient (IN) ==
[2020-07-17] MEDS ORDERED: ACETAMINOPHEN 1,000 MG/100 ML VIAL IV STA (18:27)
[2020-07-17] MEDS ORDERED: SODIUM CHLORIDE 0.9% 1000ML 2,000 ML IV ONE (18:27)
[2020-07-17] MEDS ORDERED: ONDANSETRON INJ 2 MG/ML 2 ML VIAL IV STA (18:27)
[2020-07-17] MEDS ORDERED: MoRPHine SULFATE 10 MG/ML CARP/VIAL IV STA ×2 (18:27→19:22)
[2020-07-17] MEDS ORDERED: KETOROLAC TROMETHAMINE 15 MG/ML VIAL IV STA ×2 (18:28→19:22)
[2020-07-17] MEDS ORDERED: MoRPHine SULFATE 2 MG/ML CARP ONE (18:34)
[2020-07-17] MEDS ORDERED: MoRPHine SULFATE 4 MG/ML 1 ML CARP\\VIAL ONE (18:34)
[2020-07-17 18:40] LABS: Basophils # (auto) 0.05 K/uL (0-0.2); Basophils % (auto) 0.6 %; Eosinophils # (auto) 0.26 K/uL (0-0.5); Hematocrit (blood only) 42.4 % (37-47); Hemoglobin 14.5 g/dL (12.0-16.0); Immature Granulocytes # (auto) 0.02 K/uL (0.00-0.02); Immature Granulocytes % (auto) 0.2 %; Lymphocytes # (auto) 3.17 K/uL (1.2-3.4); Mean Corpuscular Hemoglobin 32.7 pg (25-34); Mean Corpuscular Hgb Conc 34.2 g/dL (32-36); Mean Corpuscular Volume 95.5 fL (80-100); Mean Platelet Volume 9.4 fL (7.4-10.4); Monocytes # (auto) 0.86 K/uL (0.11-0.59); Neutrophils # (auto) 4.21 K/uL (1.4-6.5); Neutrophils % (auto) 49.2 %; Platelet Count 288 K/uL (130-400); RDW Standard Deviation 45.6 fL (36.4-46.3); Red Blood Count 4.44 M/uL (4.2-5.4); White Blood Count 8.57 K/uL (4.8-10.8)
[2020-07-17 18:48] LABS: Alanine Aminotransferase 117 U/L (12-78); Albumin Level 3.8 gm/dl (3.4-5.0); Aspartate Aminotransferase 58 U/L (15-37); BUN Creatinine Ratio 25.6 (10-20); Blood Urea Nitrogen 26 mg/dl (7-18); Carbon Dioxide 27 mmol/L (21-32); Chloride 110 mmol/L (98-107); Est GFR (African American) 69.9; Est GFR (Non-African American) 60.3; Glucose 95 mg/dl (70-99); Lipase 96 U/L (73-393); Potassium 3.8 mmol/L (3.5-5.1); Sodium 144 mmol/L (136-145)
[2020-07-17 18:50] LABS: Alkaline Phosphatase 159 U/L (45-117); Bilirubin,Total 0.3 mg/dl (0.2-1); Globulin 3.7 gm/dl (2.5-4.0); Total Protein 7.5 gm/dl (6.4-8.2)
[2020-07-17] MEDS ORDERED: OPTIRAY 300 100mL IV ONE (19:13)
--- NOTE | 2020-07-17 19:43 | CT Scan Report ---
ABDOMEN AND PELVIS CT WITH IV CONTRAST CT DOSE: 356.94 mGy.cm HISTORY: Acute left-sided flank pain left flank pain TECHNIQUE: Multiaxial CT images of the abdomen and pelvis were performed following the IV administrat ion of 89 cc of Optiray, A dose lowering technique was utilized adhering to the principles of ALARA. COMPARISON STUDY: CT abdomen and pelvis 07/13/2020 FINDINGS: Mild bibasilar atelectasis. No pneumatosis or pneumoperitoneum. Imaged inferior cardiac chambers are unremarkable. The spleen, pancreas and adrenal glands are unremarkable. The gallbladder and liver are within normal limits. Patency of the hepatic and portal veins. Punctate nonobstructing right renal calculus redemonstrated. Interval development of moderate left-si ded hydroureteronephrosis with moderate perinephric and periureteral inflammatory stranding. Slightly delayed left-sided nephrogram. Persistent obstructing 7 mm calculus of the distal left ureter on o[address], suboptimally visualized secondary to streak artifact from the left hip total joint arthroplas ty. Pelvic basin phlebolith. Partial distention of the urinary bladder with small focus of air noted anteriorly. Hysterectomy. No adnexal mass lesion. Calcified plaque the abdominal aorta. No adenopathy . No bowel obstruction or bowel wall thickening. Colonic diverticulosis. Appendectomy. Unremarkable sof t tissues. No acute fracture. Fusion hardware with discectomy changes of the lumbar spine redemonstra khushboo. No evidence of hardware complication. IMPRESSION: 1. Interval development of moderate left-sided hydroureteronephrosis with delayed nephrogram secondar y to unchanged positioning of the 7 mm obstructing distal ureteral calculus. 2. Punctate right nephrolithiasis. 3. Colonic diverticulosis. ACT 112: Negative or not required by law. The above report was generated using voice recognition software. It may contain grammatical, syntax o r spelling errors. Electronically signed by: Main Epps M.D. 07/17/2020 7:41 PM
[2020-07-17] MEDS ORDERED: HYDROmorphone INJ 0.5 MG/0.5 ML SYR IV STA (20:10)
[2020-07-17 21:15] LABS: Influenza A virus by PCR Negative (Neg); Influenza B virus by PCR Negative (Neg); RSV by PCR Negative (Neg); SARS CoV2 RNA(COVID-19) InHosp NEGATIVE (Negative)
--- NOTE | 2020-07-17 22:09 | Emergency Department Note ---
Impression & Plan Ureterolithiasis, Hydronephrosis due to obstruction of ureter, Acute left flank pain ED Provider Note NAME: MATY LOPEZ AGE: 55 SEX: F ARRIVES VIA: Walk-In INFORMANT: Patient, ED PROVIDER(S): Arun Brantley MD CHIEF COMPLAINT: Left flank pain PLAN: Disposition: Admit MEDICAL DECISION MAKING: The patient is a pleasant 55-year-old woman with a past medical history of interstitial cystitis, lumbar stenosis with neurogenic claudication, neph rolithiasis with recently diagnosed left-sided ureteral stone who presents to the emergency department with acute onset of left-sided flank pain into her groin with associated nausea. Patient was recently seen by urology and had CT scan that showed 7 mm ureteral stone but with no hydronephrosis or evidence of obstruction. Patient denies any recent fevers, chills, cough, congestion, diarrhea or blood or burning with urination. On arrival the patient is uncomfortable but in no acute distress, afebrile stable vital signs. She has moderate pain of the left flank and lower abdomen. There is no guarding or rebound. WBC, H/H and platelets within normal limits. Chemistry without metabolic acid osis. BUN/creatinine> 20 consistent with patient's clinical dry appearance. AST ALT still elevated at 58 117, respectively without prior values for comparison. Lipase not elevated. COVID-19 PCR was negative. Influenza and RSV PCR was also negative. CT abdomen and pelvis was performed today and now demonstrates no significant migration of her ureteral stone but now with evidence of hydronephrosis. Was treated with IV fluid hydration, APAP, Toradol and repeat doses of morphine but still with continued pain. She was provided with additional Dilaudid. Given her intractable pain related to obstructing stone she was in agreement with plan for admission. Case was discussed with Dr. Richardson, [facility] hospitalist, who will evaluate the patient for admission. Triage Nursing notes reviewed and agree them. Prior medical records reviewed Vital Signs: reviewed and remarkable for no significant abnormalities Differential diagnosis: Renal colic, UTI, appendicitis, diverticulitis, mesenteric ischemia, aortic pathology, infections, inflammatory bowel disease, PUD, biliary pathology, as well as other pathologies. ER treatment provided: See below. Diagnostics interpreted by me: Cardiac Monitoring: An order for continuous cardiac monitoring was placed and demonstrated NSR, 93 bpm, no ectopy. Laboratory studies: See below Imaging studies: See below Consultation(s): Case was discussed with Dr. Richardson, [facility] hospitalist, who will evaluate the patient for admission. HPI: The patient is a pleasant 55-year-old woman with a past medical history of interstitial cystitis, lumbar stenosis with neurogenic claudication, nephrolithiasis with recently diagnosed left-sided ureteral stone who presents to the emergency department with acute onset of left-sided flank pain into her groin with associated nausea. Patient was recently seen by urology and had CT scan that showed 7 mm ureteral stone but with no hydronephrosis or evidence of obstruction. Patient denies any recent fevers, chills, cough, congestion, diarrhea or blood or burning with urination. ROS: See above HPI for pertinent positives & negatives. A total of 10 systems reviewed and were otherwise negative. PAST MEDICAL HISTORY:See Below PAST SURGICAL HISTORY:See Below FAMILY HISTORY:See Below SOCIAL HISTORY:See Below HOME MEDICATIONS:See Below ALLERGIES:See Below VITALS:See Below PHYSICAL EXAMINATION: GENERAL: Awake, alert, uncomfortable-appearing, in no distress HENT: Normocephalic, atraumatic. Oropharynx with dry mucous membranes and otherwise unremarkable. EYES: Normal conjunctiva. Sclera non-icteric. NECK: Supple. No nuchal rigidity. FROM. No JVD. RESPIRATORY: Clear to auscultation. CARDIAC: Regular rate, normal rhythm. Extremities warm and well perfused. Pulses equal. ABDOMEN: Soft, non-distended. Moderate tenenderness to palpation of the left flank and left lower abdomen. There is no guarding or rebound. No rebound or guarding. No masses. RECTAL: Deferred. MUSCULOSKELETAL: Chest examination reveals no tenderness. The back is symmetrical on inspection without obvious abnormality. There is no CVA tenderne ss to palpation. No joint edema. LOWER EXTREMITIES: Calves are equal size bilaterally and non-tender. No edema. No discoloration. NEURO: Normal sensorium. No sensory or motor deficits noted. SKIN: No rash or jaundice noted. Arun Brantley MD Past Med/Surg History Medical History Anxiety Colitis Depression DJD (degenerative joint disease) of hip Gastric ulcer GERD (gastroesophageal reflux disease) History of Mohs micrographic surgery for skin cancer nose Hyperlipidemia Interstitial cystitis (10/09/13) Lumbar stenosis with neurogenic claudication Nephrolithiasis Osteoarthritis Pelvic pain (10/09/13) Urinary urgency Surgical History History of appendectomy History of back surgery lumbar> fusion History of colonoscopy History of esophagogastroduodenoscopy (EGD) History of hysterectomy History of tooth extraction S/P hip replacement left Family History Other Hypertension Pancreatic cancer Social History Smoking Status: Current every day smoker Cigarettes Per Day: 8; Second Hand Exposure: No; Do You Dip or Chew Tobacco: No; Tobacco Cessation Education Requested by Patient: No Hx Alcohol Use: No Hx Substance Use: No Preferred Language: Polish Communication Ability: Effective Visual Impairment: Limited Hearing Ability: Normal Vc++ Developer Required: No Beliefs That Will Affect Care: None marital status: Current Living Situation: Spouse and Family current occupational status: employed 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 Other Information That Helps Us Care for You: No Feels Safe at Home: Yes Safety Concerns: Feels Safe At This Time Childhood Exposure to Second-Hand Smoke: No Assistive Devices: Glasses Allergies Allergies Allergy/AdvReac Type Severity Reaction Status Date / Time amoxicillin AdvReac Mild thrush, Verified 07/17/20 19:50 yeast infx cephalexin AdvReac Mild THRUSH, Verified 07/17/20 19:50 YEAST INFX ciprofloxacin AdvReac Mild THRUSH, Verified 07/17/20 19:50 YEAST INFX clotrimazole AdvReac Mild THRUSH Verified 07/17/20 19:50 doxycycline AdvReac Mild THRUSH, Verified 07/17/20 19:50 YEAST INFX metronidazole AdvReac Mild THRUSH Verified 07/17/20 19:50 Home Meds Home Medications Medication Instructions Recorded Confirmed omeprazole 20 mg tablet,delayed 20 mg PO QAM tab 07/17/18 07/17/20 release rizatriptan 10 mg tablet 10 mg PO DIRECTED PRN tab 07/17/18 07/17/20 rosuvastatin [Crestor] 10 mg PO QAM 06/29/20 07/17/20 sertraline [Zoloft] 25 mg PO QAM 06/29/20 07/17/20 amitriptyline 25 mg PO HS 07/08/20 07/17/20 Previous Rx's Medication Instructions Recorded hydrocodone 7.5 mg-acetaminophen 1 tab PO Q8H PRN #90 tab 06/23/20 325 mg tablet gabapentin 300 mg capsule 300 mg PO BID #60 cap 07/01/20 phenazopyridine [Pyridium] 200 mg PO Q8H PRN #10 tab 07/08/20 tamsulosin 0.4 mg capsule 0.4 mg PO HS #30 cap 07/14/20 Results & Data (ED) Vital Signs Vital Signs - 24 hr 07/17/20 18:05 07/17/20 20:00 Temperature 36.2 C L Temperature Source Temporal Artery Scan Pulse Rate 81 Pulse Rate [Radial] 88 Pulse Rhythm [Radial] Regular Pulse Strength [Radial] Normal Respiratory Rate 18 18 Respiratory Effort / Characteristics Non-Labored Non-Labored Spontaneous Respiratory Depth Normal Normal Respiratory Pattern Regular Blood Pressure 143/80 H Blood Pressure [Left Arm] 153/81 H Blood Pressure Mean 101 Blood Pressure Mean [Left Arm] 105 Pulse Oximetry 99 99 Oxygen Delivery Method Room Air Room Air Sepsis Recent Fever Within 48 Hours No Sepsis New/Unexplained Change in Mental Status N/A Sepsis Action Taken by Nursing No Action Required Laboratory Data Attestation: I reviewed the patient's lab results. Result diagrams: 07/17/20 18:15 07/17/20 18:15 Lab Results 07/17/20 07/17/20 07/17/20 Range/Units 18:15 18:15 20:29 WBC 8.57 (4.8-10.8) K/uL RBC 4.44 (4.2-5.4) M/uL Hgb 14.5 (12.0-16.0) g/dL Hct 42.4 (37-47) % MCV 95.5 (80-100) fL MCH 32.7 (25-34) pg MCHC 34.2 (32-36) g/dL RDW Std Deviation 45.6 (36.4-46.3) fL RDW Coeff of Shanna 13.0 (11.5-14.5) % Plt Count 288 (130-400) K/uL MPV 9.4 (7.4-10.4) fL Immature Gran % (Auto) 0.2 % Neut % (Auto) 49.2 % Lymph % (Auto) 37.0 % Meagher % (Auto) 10.0 % Eos % (Auto) 3.0 % Baso % (Auto) 0.6 % Neut # (Auto) 4.21 (1.4-6.5) K/uL Lymph # (Auto) 3.17 (1.2-3.4) K/uL Meagher # (Auto) 0.86 H (0.11-0.59) K/uL Eos # (Auto) 0.26 (0-0.5) K/uL Baso # (Auto) 0.05 (0-0.2) K/uL Immature Gran # (Auto) 0.02 (0.00-0.02) K/uL Sodium 144 (136-145) mmol/L Potassium 3.8 (3.5-5.1) mmol/L Chloride 110 H (98-107) mmol/L Carbon Dioxide 27 (21-32) mmol/L Anion Gap 7.0 (3-11) BUN 26 H (7-18) mg/dl Creatinine 1.03 (0.6-1.2) mg/dl Est Cr Clr Drug Dosing Not Reportable Est GFR ( Amer) 69.9 Est GFR (Non-Af Amer) 60.3 BUN/Creatinine Ratio 25.6 H (10-20) Glucose 95 (70-99) mg/dl Calcium 9.0 (8.5-10.1) mg/dl Total Bilirubin 0.3 (0.2-1) mg/dl AST 58 H (15-37) U/L ALT 117 H (12-78) U/L Alkaline Phosphatase 159 H (45-117) U/L Total Protein 7.5 (6.4-8.2) gm/dl Albumin 3.8 (3.4-5.0) gm/dl Globulin 3.7 (2.5-4.0) gm/dl Albumin/Globulin Ratio 1.0 (0.9-2) Lipase 96 (73-393) U/L COVID-19 Eval Order CovFluRsv at [facility] SARS-CoV-2 (PCR) (Negative) Influenza Type A (PCR) (Neg) Influenza Type B (PCR) (Neg) RSV (RT-PCR) (Neg) 07/17/20 Range/Units 20:29 WBC (4.8-10.8) K/uL RBC (4.2-5.4) M/uL Hgb (12.0-16.0) g/dL Hct (37-47) % MCV (80-100) fL MCH (25-34) pg MCHC (32-36) g/dL RDW Std Deviation (36.4-46.3) fL RDW Coeff of Shanna (11.5-14.5) % Plt Count (130-400) K/uL MPV (7.4-10.4) fL Immature Gran % (Auto) % Neut % (Auto) % Lymph % (Auto) % Meagher % (Auto) % Eos % (Auto) % Baso % (Auto) % Neut # (Auto) (1.4-6.5) K/uL Lymph # (Auto) (1.2-3.4) K/uL Meagher # (Auto) (0.11-0.59) K/uL Eos # (Auto) (0-0.5) K/uL Baso # (Auto) (0-0.2) K/uL Immature Gran # (Auto) (0.00-0.02) K/uL Sodium (136-145) mmol/L Potassium (3.5-5.1) mmol/L Chloride (98-107) mmol/L Carbon Dioxide (21-32) mmol/L Anion Gap (3-11) BUN (7-18) mg/dl Creatinine (0.6-1.2) mg/dl Est Cr Clr Drug Dosing Est GFR ( Amer) Est GFR (Non-Af Amer) BUN/Creatinine Ratio (10-20) Glucose (70-99) mg/dl Calcium (8.5-10.1) mg/dl Total Bilirubin (0.2-1) mg/dl AST (15-37) U/L ALT (12-78) U/L Alkaline Phosphatase (45-117) U/L Total Protein (6.4-8.2) gm/dl Albumin (3.4-5.0) gm/dl Globulin (2.5-4.0) gm/dl Albumin/Globulin Ratio (0.9-2) Lipase (73-393) U/L COVID-19 Eval Order SARS-CoV-2 (PCR) NEGATIVE (Negative) Influenza Type A (PCR) Negative (Neg) Influenza Type B (PCR) Negative (Neg) RSV (RT-PCR) Negative (Neg) Administered Medications Hydrocodone Bitart/Acetaminophen (Hydrocodone/Acetaminophen 7.5/325mg Tab) 1 tab PO Q8H PRN PRN Reason: pain Stop: 07/31/20 23:05 Last Admin: 07/17/20 23:26 Dose: 1 tab Documented by: [id number] Sodium Chloride (Nss 1000ml) 1,000 mls @ 125 mls/hr IV .Q8H TIFFANY Stop: 08/16/20 23:05 Last Admin: 07/17/20 23:26 Dose: 125 mls/hr Documented by: [id number] Discontinued Medications Hydromorphone HCl (Hydromorphone Inj 0.5 Mg/0.5 Ml Syr) 0.5 mg IV NOW STA Stop: 07/17/20 20:11 Last Admin: 07/17/20 20:23 Dose: 0.5 mg Documented by: [id number] Sodium Chloride (Nss 1000ml) 2,000 mls @ 999 mls/hr IV .Q2H1M ONE Stop: 07/17/20 20:27 Last Infusion: 07/17/20 20:55 Dose: 0 mls/hr Documented by: [id number] Admin: 07/17/20 18:45 Dose: 999 mls/hr Documented by: [id number] Acetaminophen (Ofirmev) 1,000 mg in 100 mls @ 400 mls/hr IV NOW STA Stop: 07/17/20 18:41 Last Infusion: 07/17/20 19:33 Dose: 0 mls/hr Documented by: [id number] Admin: 07/17/20 18:50 Dose: 400 mls/hr Documented by: [id number] Ioversol (Optiray 300 100ml) 89 ml IV ONCE ONE Stop: 07/17/20 19:14 Last Admin: 07/17/20 19:14 Dose: 89 ml Documented by: [id number] Ketorolac Tromethamine (Ketorolac Tromethamine 15 Mg/Ml Vial) 15 mg IV NOW STA Stop: 07/17/20 18:29 Last Admin: 07/17/20 18:46 Dose: 15 mg Documented by: [id number] Ketorolac Tromethamine (Ketorolac Tromethamine 15 Mg/Ml Vial) 15 mg IV NOW STA Stop: 07/17/20 19:23 Last Admin: 07/17/20 19:37 Dose: 15 mg Documented by: [id number] Morphine Sulfate (Morphine Sulfate 10 Mg/Ml Carp/Vial) 6 mg IV NOW STA Stop: 07/17/20 18:28 Last Admin: 07/17/20 18:46 Dose: Not Given Documented by: [id number] Morphine Sulfate (Morphine Sulfate 2 Mg/Ml Carp) Confirm Administered Dose 2 mg .ROUTE .STK-MED ONE Stop: 07/17/20 18:35 Last Admin: 07/17/20 18:46 Dose: 2 mg Documented by: [id number] Morphine Sulfate (Morphine Sulfate 4 Mg/Ml 1 Ml Carp\Vial) Confirm Administered Dose 4 mg .ROUTE .STK-MED ONE Stop: 07/17/20 18:35 Last Admin: 07/17/20 18:46 Dose: 4 mg Documented by: [id number] Morphine Sulfate (Morphine Sulfate 10 Mg/Ml Carp/Vial) 8 mg IV NOW STA Stop: 07/17/20 19:23 Last Admin: 07/17/20 19:37 Dose: 8 mg Documented by: [id number] Ondansetron HCl (Ondansetron Inj 2 Mg/Ml 2 Ml Vial) 4 mg IV NOW STA Stop: 07/17/20 18:28 Last Admin: 07/17/20 18:46 Dose: 4 mg Documented by: [id number] Imaging Data Radiologist's Impression: Abdomen/Pelvis CT 07/17/20 18:[address] WITH IV CONTRAST CT DOSE: 356.94 mGy.cm HISTORY: Acute left-sided flank pain left flank pain TECHNIQUE: Multiaxial CT images of the abdomen and pelvis were performed following the IV administration of 89 cc of Optiray, A dose lowering technique was utilized adhering to the principles of ALARA. COMPARISON STUDY: CT abdomen and pelvis 07/13/2020 FINDINGS: Mild bibasilar atelectasis. No pneumatosis or pneumoperitoneum. Imaged inferior cardiac chambers are unremarkable. The spleen, pancreas and adrenal glands are unremarkable. The gallbladder and liver are within normal limits. Patency of the hepatic and portal veins. Punctate nonobstructing right renal calculus redemonstrated. Interval development of moderate left-sided hydroureteronephrosis with moderate perinephric and periureteral inflammatory stranding. Slightly delayed left-sided nephrogram. Persistent obstructing 7 mm calculus of the distal left ureter on i mage 370, suboptimally visualized secondary to streak artifact from the left hip total joint arthroplasty. Pelvic basin phlebolith. Partial distention of the urinary bladder with small focus of air noted anteriorly. Hysterectomy. No adnexal mass lesion. Calcified plaque the abdominal aorta. No adenopathy. No bowel obstruction or bowel wall thickening. Colonic diverticulosis. Appendectomy. Unremarkable soft tissues. No acute fracture. Fusion hardware with discectomy changes of the lumbar spine redemonstrated. No evidence of hardware complication. IMPRESSION: 1. Interval development of moderate left-sided hydroureteronephrosis with delayed nephrogram secondary to unchanged positioning of the 7 mm obstructing distal ureteral calculus. 2. Punctate right nephrolithiasis. 3. Colonic diverticulosis. ACT 112: Negative or not required by law. The above report was generated using voice recognition software. It may contain grammatical, syntax or spelling errors. Electronically signed by: Main Epps M.D. 07/17/2020 7:41 PM Discharge Plan Visit Data Chief Complaint: Kidney Stone Stated Complaint: KIDNEY STONES ED Provider: Arun Brantley Discharge Problem: Ureterolithiasis, Hydronephrosis due to obstruction of ureter, Acute left flank pain Patient Disposition: Admitted As Inpatient Discharge Instructions Interventions: ED Discharge Assessment Last Done: 07/17/20 22:44
[2020-07-17] MEDS ORDERED: RIZATRIPTAN BENZOATE 10 MG TAB PO PRN (23:06)
[2020-07-17] MEDS: SODIUM CHLORIDE 0.9% 1000ML 1,000 ML IV SCH (23:26)
[2020-07-17] MEDS: HYDROCODONE/ACETAMINOPHEN 7.5/325MG TAB PO PRN (23:26)
[2020-07-18 00:10] LABS: Appearance Urine Clear (Clear); Bacteria Urine Automated Negative (Negative); Bilirubin Urine Negative (Negative); Blood Urine 3+ (Negative); Cast Urine Automated 0 /lpf (0-5); Color Urine Yellow; Epithelial Cell Urine Auto 0-5 /lpf (0-5); Glucose Urine UA Negative (Negative); Ketones Urine Negative (Negative); Leukocyte Esterase Urine Negative (Negative); Nitrite Urine Negative (Negative); Protein Urine Negative (Negative); RBC Urine Automated >30 /hpf (0-4); Specific Gravity Urine 1.026 (1.000-1.030); Urobilinogen Urine Negative (Negative); pH Urine 5.5 (4.5-7.5)
--- NOTE | 2020-07-18 00:31 | History and Physical Report ---
DATE OF ADMISSION: 07/17/2020 CHIEF COMPLAINT: Left flank pain, kidney stone. HISTORY OF PRESENT ILLNESS: This is a 55-year-old female with past medical history of significant arthritis of left knee, lumbar disk disorder, diskitis, tobacco use disorder, presents with left flank pain and kidney stone. The patient has history of kidney stones in the past. Today 5 p.m. she had severe pain in the left flank pain radiating to the groin and she was constantly vomiting. She received Tylenol, Dilaudid, Toradol and 2 doses of morphine in the ER and currently pain is under control. Denies any fever, chills. No burning micturition, no hematuria, no bloody stool or black stools. No diarrhea or constipation. No fever, no chills, no chest pain or shortness of breath. No cough, no headache, no blurred vision, no earache, no runny nose, no sore throat. Otherwise, she is doing okay. ALLERGIES: AMOXICILLIN, CEPHALEXIN, CIPROFLOXACIN, CLOTRIMAZOLE, DOXYCYCLINE and METRONIDAZOLE. PAST MEDICAL HISTORY: As mentioned above. PAST SURGICAL HISTORY: Colonoscopy, cystoscopy, EGDs, EGD with biopsy, lumbosacral injection, left knee arthroscopy, laparoscopic appendectomy, exploratory laparoscopy, total abdominal hysterectomy with removal of the tubes. MEDICATIONS: The patient currently on amitriptyline 25 mg p.o. at bedtime, gabapentin 300 mg p.o. b.i.d., hydrocodone/acetaminophen 7.5/325 mg 1 tablet p.o. every 8 hours p.r.n., omeprazole 20 mg p.o. a.m., rizatriptan 10 mg p.o. p.r.n., Crestor 10 mg p.o. a.m., Zoloft 25 mg p.o. a.m., Flomax 0.4 mg p.o. at bedtime. FAMILY HISTORY: Significant for mother has arthritis. Sister has arthritis. Paternal grandfather had stroke, maternal grandfather had heart disorder. SOCIAL HISTORY: , smokes half pack a day for 20 years. No alcohol, no drug use. REVIEW OF SYMPTOMS: As per HPI. Rest of review of systems negative. PHYSICAL EXAMINATION: GENERAL: The patient is of moderate build, not in acute distress. VITAL SIGNS: Temperature 36.2, pulse 88, respiratory rate 18, blood pressure 153/81, oxygen 99% on room air. HEENT: Pupils equal, round, reactive to light. Oral mucosa moist. NECK: No JVD. No neck masses. CARDIOVASCULAR: S1, S2 heard, regular rate and rhythm, no murmur, no gallop. RESPIRATORY SYSTEM: Normal AP diameter. No accessory muscle use. No wheezing, no crackles. ABDOMEN: Soft, bowel sounds present. No CVA tenderness, no guarding, no rigidity. No distention. CENTRAL NERVOUS SYSTEM: Cranial nerves II-XII grossly intact. Nonfocal. EXTREMITIES: No edema, no erythema. LABORATORY DATA: WBC 8.3, hemoglobin 14.5, hematocrit 42.4, platelets 288. Sodium 144, potassium 3.8, chloride 110, bicarbonate 27, BUN 26, creatinine 1.03, serum glucose 95, calcium 9, total bilirubin 0.3, AST 58, ALT 117, alkaline phosphatase 159. Total protein 7.5. Lipase 96. SARS-CoV-2 PCR negative. Influenza A and B PCR negative, RSV PCR negative. CT of abdomen and pelvis is showing interval development of moderate left sided hydroureteronephrosis with delayed nephrogram secondary to unchanged position of 7 mm obstructing distal ureteral calculus, puncture right nephrolithiasis, colonic diverticulosis. ASSESSMENT AND PLAN: This is a 55-year-old female who presents with renal colic. 1. Renal colic, left distal ureteral kidney stone with moderate hydronephrosis. We will follow the urinalysis for infection. There is no fever, no leukocytosis. We will place on IV fluids, normal saline 125 mL per hour, IV Dilaudid p.r.n. Continue home pain medications. Continue Flomax, n.p.o. Consult urology in the a.m. for further recommendations. Monitor in the medical floor. 3. History of hyperlipidemia. Continue statin. 4. Depression. Continue Zoloft. 5. Gastroesophageal reflux disease, on omeprazole. 6. Elevated LFTs. CT scan was okay. We will follow repeat labs. 7. Deep venous thrombosis prophylaxis, sequential compression devices. DISPOSITION: Admit to medical floor. Expect discharge home and follow with family doctor. NUSRAT
[2020-07-18] MEDS: SODIUM CHLORIDE 0.9% 1000ML 1,000 ML IV SCH ×2 (05:54→17:26)
[2020-07-18 06:01] LABS: Basophils # (auto) 0.02 K/uL (0-0.2); Basophils % (auto) 0.3 %; Eosinophils # (auto) 0.13 K/uL (0-0.5); Eosinophils % (auto) 1.7 %; Hematocrit (blood only) 38.1 % (37-47); Hemoglobin 12.5 g/dL (12.0-16.0); Immature Granulocytes # (auto) 0.01 K/uL (0.00-0.02); Immature Granulocytes % (auto) 0.1 %; Lymphocytes # (auto) 1.79 K/uL (1.2-3.4); Lymphocytes % (auto) 23.6 %; Mean Corpuscular Hemoglobin 31.8 pg (25-34); Mean Corpuscular Hgb Conc 32.8 g/dL (32-36); Mean Corpuscular Volume 96.9 fL (80-100); Mean Platelet Volume 8.8 fL (7.4-10.4); Monocytes # (auto) 0.68 K/uL (0.11-0.59); Neutrophils # (auto) 4.96 K/uL (1.4-6.5); Neutrophils % (auto) 65.3 %; Platelet Count 224 K/uL (130-400); RDW Standard Deviation 46.3 fL (36.4-46.3); Red Blood Count 3.93 M/uL (4.2-5.4); White Blood Count 7.59 K/uL (4.8-10.8)
[2020-07-18 06:40] LABS: Calcium 8.3 mg/dl (8.5-10.1); Creatinine Clr Calc Pharmacy 93.5 ml/min; Est GFR (African American) 113.1; Est GFR (Non-African American) 97.6; Magnesium 2.4 mg/dl (1.8-2.4); Potassium 4.4 mmol/L (3.5-5.1)
[2020-07-18 07:00] LABS: Albumin Level 2.9 gm/dl (3.4-5.0); Bilirubin Direct 0.1 mg/dl (0-0.2); Bilirubin,Total 0.5 mg/dl (0.2-1); Total Protein 5.9 gm/dl (6.4-8.2)
--- NOTE | 2020-07-18 07:40 | Hospitalist Progress Note ---
Date of Service July 18, 2020 Assessment & Plan (1) Left ureteral calculus: (2) Ureterolithiasis: (3) Hydronephrosis due to obstruction of ureter: (4) Acute left flank pain: This is a 55-year-old female who presents with renal colic. 1. Renal colic, left distal ureteral kidney stone with moderate hydronephrosis. UA - negative for bacteria, negative for nitrates, positive for blood Patient is afebrile, there is no leukocytosis Cont. IV fluids, normal saline 125 mL per hour, IV Dilaudid p.r.n. Continue home pain medications. Continue Flomax Monitor in the medical floor. n.p.o. Consult urology -plan for or, possible stent placement later today,07/18/20 3. History of hyperlipidemia. Continue statin. 4. Depression. Continue Zoloft. 5. Gastroesophageal reflux disease, on omeprazole. 6. Elevated LFTs. CT scan unremarkable. LFTs trending down DVT ppx: SCDs DISPOSITION: medical floor. Expect discharge home and follow with family doctor/ urology. Admission and Anticipated Discharge Date Admission Date: July 17, 2020 Subjective Patient seen in follow-up of flank pain, kidney stone Currently she is lying in bed, in no acute distress says that her flank pain is better controlled now, and also nausea has resolved She was seen by urology, plan for OR/stent placement later today Currently denies any chest pain or shortness of breath or abdominal pain Review of Systems Review of Systems: All systems reviewed & are unremarkable except as noted in HPI & below Constitutional: no fever and no chills Respiratory: no cough and no dyspnea Cardiovascular: no chest pain and no palpitations Gastrointestinal: no abdominal pain, no nausea and no vomiting Genitourinary: + flank pain (improved) Physical Exam Physical Exam: GENERAL: WD/WN, not in acute distress. HEENT: NC/AT, PERRL, EOMI, Oral mucosa moist. NECK: No JVD. No neck masses. CARDIOVASCULAR: S1, S2 heard, regular rate and rhythm, no murmur, no gallop. RESPIRATORY SYSTEM: Normal AP diameter. No accessory muscle use. No wheezing, no crackles. ABDOMEN: Soft, bowel sounds present. CVA tenderness improved, no guarding, no rigidity. No distention. NEURO: Alert and oriented and answering questions appropriately, speech fluent, no facial symmetry, moves all 4 extremities spontaneously EXTREMITIES: No edema, no erythema. SKIN: warm, dry Results & Data Results & Data ([facility]) Vital Signs (Past 12 Hours) Vital Signs Temp Pulse Pulse Pulse Resp BP BP 07/17/20 23:25 37.1 C 93 H 18 148/80 H 07/17/20 22:47 95 H 18 138/86 07/17/20 22:44 95 H 18 138/86 07/17/20 20:00 88 18 153/81 H Pulse Ox 07/17/20 23:25 93 07/17/20 22:47 95 07/17/20 22:44 95 07/17/20 20:00 99 Laboratory Results 07/18/20 07/18/20 07/18/20 Range/Units 05:40 05:40 05:40 WBC 7.59 (4.8-10.8) K/uL RBC 3.93 L (4.2-5.4) M/uL Hgb 12.5 (12.0-16.0) g/dL Hct 38.1 (37-47) % MCV 96.9 (80-100) fL MCH 31.8 (25-34) pg MCHC 32.8 (32-36) g/dL RDW Std Deviation 46.3 (36.4-46.3) fL RDW Coeff of Shanna 13.0 (11.5-14.5) % Plt Count 224 (130-400) K/uL MPV 8.8 (7.4-10.4) fL Immature Gran % (Auto) 0.1 % Neut % (Auto) 65.3 % Lymph % (Auto) 23.6 % Hood % (Auto) 9.0 % Eos % (Auto) 1.7 % Baso % (Auto) 0.3 % Neut # (Auto) 4.96 (1.4-6.5) K/uL Lymph # (Auto) 1.79 (1.2-3.4) K/uL Hood # (Auto) 0.68 H (0.11-0.59) K/uL Eos # (Auto) 0.13 (0-0.5) K/uL Baso # (Auto) 0.02 (0-0.2) K/uL Immature Gran # (Auto) 0.01 (0.00-0.02) K/uL Sodium 144 (136-145) mmol/L Potassium 4.4 D (3.5-5.1) mmol/L Chloride 112 H (98-107) mmol/L Carbon Dioxide 31 (21-32) mmol/L Anion Gap 1.0 L (3-11) BUN 19 H (7-18) mg/dl Creatinine 0.67 D (0.6-1.2) mg/dl Est Cr Clr Drug Dosing 93.5 Est GFR ( Amer) 113.1 Est GFR (Non-Af Amer) 97.6 BUN/Creatinine Ratio 29.0 H (10-20) Glucose 71 (70-99) mg/dl Calcium 8.3 L (8.5-10.1) mg/dl Magnesium 2.4 (1.8-2.4) mg/dl Total Bilirubin 0.5 (0.2-1) mg/dl Direct Bilirubin 0.1 (0-0.2) mg/dl AST 30 (15-37) U/L ALT 79 H (12-78) U/L Alkaline Phosphatase 120 H (45-117) U/L Total Protein 5.9 L D (6.4-8.2) gm/dl Albumin 2.9 L (3.4-5.0) gm/dl Globulin (2.5-4.0) gm/dl Albumin/Globulin Ratio (0.9-2) Lipase (73-393) U/L Urine Color Urine Appearance (Clear) Urine pH (4.5-7.5) Ur Specific [place] (1.000-1.030) Urine Protein (Negative) Urine Glucose (UA) (Negative) Urine Ketones (Negative) Urine Blood (Negative) Urine Nitrite (Negative) Urine Bilirubin (Negative) Urine Urobilinogen (Negative) Ur Leukocyte Esterase (Negative) Urine WBC (Auto) (0-5) /hpf Urine RBC (Auto) (0-4) /hpf U Hyaline Cast (Auto) (0-5) /lpf U Epithel Cells (Auto) (0-5) /lpf Urine Bacteria (Auto) (Negative) COVID-19 Eval Order SARS-CoV-2 (PCR) (Negative) Influenza Type A (PCR) (Neg) Influenza Type B (PCR) (Neg) RSV (RT-PCR) (Neg) 07/17/20 07/17/20 07/17/20 Range/Units 23:35 20:29 20:29 WBC (4.8-10.8) K/uL RBC (4.2-5.4) M/uL Hgb (12.0-16.0) g/dL Hct (37-47) % MCV (80-100) fL MCH (25-34) pg MCHC (32-36) g/dL RDW Std Deviation (36.4-46.3) fL RDW Coeff of Shanna (11.5-14.5) % Plt Count (130-400) K/uL MPV (7.4-10.4) fL Immature Gran % (Auto) % Neut % (Auto) % Lymph % (Auto) % Hood % (Auto) % Eos % (Auto) % Baso % (Auto) % Neut # (Auto) (1.4-6.5) K/uL Lymph # (Auto) (1.2-3.4) K/uL Hood # (Auto) (0.11-0.59) K/uL Eos # (Auto) (0-0.5) K/uL Baso # (Auto) (0-0.2) K/uL Immature Gran # (Auto) (0.00-0.02) K/uL Sodium (136-145) mmol/L Potassium (3.5-5.1) mmol/L Chloride (98-107) mmol/L Carbon Dioxide (21-32) mmol/L Anion Gap (3-11) BUN (7-18) mg/dl Creatinine (0.6-1.2) mg/dl Est Cr Clr Drug Dosing Est GFR ( Amer) Est GFR (Non-Af Amer) BUN/Creatinine Ratio (10-20) Glucose (70-99) mg/dl Calcium (8.5-10.1) mg/dl Magnesium (1.8-2.4) mg/dl Total Bilirubin (0.2-1) mg/dl Direct Bilirubin (0-0.2) mg/dl AST (15-37) U/L ALT (12-78) U/L Alkaline Phosphatase (45-117) U/L Total Protein (6.4-8.2) gm/dl Albumin (3.4-5.0) gm/dl Globulin (2.5-4.0) gm/dl Albumin/Globulin Ratio (0.9-2) Lipase (73-393) U/L Urine Color Yellow Urine Appearance Clear (Clear) Urine pH 5.5 (4.5-7.5) Ur Specific [place] 1.026 (1.000-1.030) Urine Protein Negative (Negative) Urine Glucose (UA) Negative (Negative) Urine Ketones Negative (Negative) Urine Blood 3+ H (Negative) Urine Nitrite Negative (Negative) Urine Bilirubin Negative (Negative) Urine Urobilinogen Negative (Negative) Ur Leukocyte Esterase Negative (Negative) Urine WBC (Auto) 1-5 (0-5) /hpf Urine RBC (Auto) >30 H (0-4) /hpf U Hyaline Cast (Auto) 0 (0-5) /lpf U Epithel Cells (Auto) 0-5 (0-5) /lpf Urine Bacteria (Auto) Negative (Negative) COVID-19 Eval Order CovFluRsv at [facility] SARS-CoV-2 (PCR) NEGATIVE (Negative) Influenza Type A (PCR) Negative (Neg) Influenza Type B (PCR) Negative (Neg) RSV (RT-PCR) Negative (Neg) 07/17/20 07/17/20 Range/Units 18:15 18:15 WBC 8.57 (4.8-10.8) K/uL RBC 4.44 (4.2-5.4) M/uL Hgb 14.5 (12.0-16.0) g/dL Hct 42.4 (37-47) % MCV 95.5 (80-100) fL MCH 32.7 (25-34) pg MCHC 34.2 (32-36) g/dL RDW Std Deviation 45.6 (36.4-46.3) fL RDW Coeff of Shanna 13.0 (11.5-14.5) % Plt Count 288 (130-400) K/uL MPV 9.4 (7.4-10.4) fL Immature Gran % (Auto) 0.2 % Neut % (Auto) 49.2 % Lymph % (Auto) 37.0 % Hood % (Auto) 10.0 % Eos % (Auto) 3.0 % Baso % (Auto) 0.6 % Neut # (Auto) 4.21 (1.4-6.5) K/uL Lymph # (Auto) 3.17 (1.2-3.4) K/uL Hood # (Auto) 0.86 H (0.11-0.59) K/uL Eos # (Auto) 0.26 (0-0.5) K/uL Baso # (Auto) 0.05 (0-0.2) K/uL Immature Gran # (Auto) 0.02 (0.00-0.02) K/uL Sodium 144 (136-145) mmol/L Potassium 3.8 (3.5-5.1) mmol/L Chloride 110 H (98-107) mmol/L Carbon Dioxide 27 (21-32) mmol/L Anion Gap 7.0 (3-11) BUN 26 H (7-18) mg/dl Creatinine 1.03 (0.6-1.2) mg/dl Est Cr Clr Drug Dosing Not Reportable Est GFR ( Amer) 69.9 Est GFR (Non-Af Amer) 60.3 BUN/Creatinine Ratio 25.6 H (10-20) Glucose 95 (70-99) mg/dl Calcium 9.0 (8.5-10.1) mg/dl Magnesium (1.8-2.4) mg/dl Total Bilirubin 0.3 (0.2-1) mg/dl Direct Bilirubin (0-0.2) mg/dl AST 58 H (15-37) U/L ALT 117 H (12-78) U/L Alkaline Phosphatase 159 H (45-117) U/L Total Protein 7.5 (6.4-8.2) gm/dl Albumin 3.8 (3.4-5.0) gm/dl Globulin 3.7 (2.5-4.0) gm/dl Albumin/Globulin Ratio 1.0 (0.9-2) Lipase 96 (73-393) U/L Urine Color Urine Appearance (Clear) Urine pH (4.5-7.5) Ur Specific [place] (1.000-1.030) Urine Protein (Negative) Urine Glucose (UA) (Negative) Urine Ketones (Negative) Urine Blood (Negative) Urine Nitrite (Negative) Urine Bilirubin (Negative) Urine Urobilinogen (Negative) Ur Leukocyte Esterase (Negative) Urine WBC (Auto) (0-5) /hpf Urine RBC (Auto) (0-4) /hpf U Hyaline Cast (Auto) (0-5) /lpf U Epithel Cells (Auto) (0-5) /lpf Urine Bacteria (Auto) (Negative) COVID-19 Eval Order SARS-CoV-2 (PCR) (Negative) Influenza Type A (PCR) (Neg) Influenza Type B (PCR) (Neg) RSV (RT-PCR) (Neg) Medications Administered Current Inpatient Medications Hydrocodone Bitart/Acetaminophen (Hydrocodone/Acetaminophen 7.5/325mg Tab) 1 tab PO Q8H PRN PRN Reason: pain Stop: 07/31/20 23:05 Last Admin: 07/17/20 23:26 Dose: 1 tab Documented by: Amitriptyline HCl (Amitriptyline Hcl 25 Mg Tab) 25 mg PO HS TIFFANY Stop: 08/17/20 20:59 Gabapentin (Gabapentin 300 Mg Cap) 300 mg PO BID TIFFANY Stop: 08/17/20 08:59 Hydromorphone HCl (Hydromorphone Inj 0.5 Mg/0.5 Ml Syr) 0.5 mg IV Q3H PRN PRN Reason: Pain Stop: 07/31/20 23:05 Sodium Chloride (Nss 1000ml) 1,000 mls @ 125 mls/hr IV .Q8H TIFFANY Stop: 08/16/20 23:05 Last Admin: 07/18/20 05:54 Dose: 125 mls/hr Documented by: Pantoprazole Sodium (Pantoprazole 40 Mg Tab) 40 mg PO QAM TIFFANY Stop: 08/17/20 08:59 Rizatriptan Benzoate (Rizatriptan Benzoate 10 Mg Tab) 10 mg PO PRN PRN PRN Reason: Migraine Headache Stop: 08/16/20 23:05 Rosuvastatin Calcium (Rosuvastatin Calcium 10 Mg Tab) 10 mg PO QAM TIFFANY Stop: 08/17/20 08:59 Sertraline HCl (Sertraline Hcl 50 Mg Tablet) 25 mg PO QAM TIFFANY Stop: 08/17/20 08:59 Tamsulosin HCl (Tamsulosin Hcl 0.4 Mg Cap) 0.4 mg PO HS TIFFANY Stop: 08/17/20 20:59
--- NOTE | 2020-07-18 08:15 | Urology Consultation ---
Date of Consultation July 18, 2020 Assessment & Plan (1) Left ureteral calculus: (2) Acute left flank pain: 55yo F admitted with intractable left flank pain secondary to a 7mm distal left ureteral stone with hydronephrosis - Afebrile, VSS, non-toxic appearing. - Labs reviewed, wbc and creatinine stable - Discussed acute stone management with ureteroscopy, stone treatment, and stent. Discussed risks and benefits of procedure. - Ureteral stents were discussed as well as post-operative issues and pain management. - She is agreeable to proceed with cystoscopy, left ureteronephroscopy, possible stone treatment and stent placement. - Findings reviewed with Dr. Romeo. - Given her intractable left flank pain with associated nausea vomiting in the context of an obstructing 7mm left ureteral stone, will proceed with OR for Cystoscopy, Left Ureteronephroscopy, possible stone treatment and stent placement depending on findings. - Risks and benefits to be reviewed with patient by Dr. Romeo. - OR notified. Covid test negative. Will cover with IV Gentamicin preoperatively. - Expected clinical course reviewed with patient, all questions were answered. - Keep NPO for procedure later today - Strain all urine ATTENDING NOTE: agree with above. Patient individually assessed, interviewed, evaluated, and examined. Plan to treat distal stone and place stent. Risks and benefits discussed at length for procedure. These include bleeding, infection, injury to surrounding tissues or organs, and risks associated with anesthesia. Patient states understanding and agrees to proceed. Will sign consent and schedule later today. Keep NPO. History of Present Illness Reason for Consultation: Left ureteral stone Attending Physician: Kali Sams MD History of Present Illness 55yo F who presented to the ED with acute onset of left-sided flank pain into her groin with associated nausea. CT abdomen pelvis was performed and noted a 7mm left ureteral stone with hydronephrosis. Past medical and surgical history reviewed. History was significant for nephrolithiasis, chronic interstitial cystitis, gastric ulcer, DJD and lumbar stenosis. Surgical history is notable for hip replacement, back surgery, appendectomy and hysterectomy. Patient was recently diagnosed with a 7mm left renal stone. She was scheduled for Left ESWL procedure on 07/08, however the stone was not visualized on X-Ray and therefore, the procedure was not completed. On 07/13/20 she a CTAP that revealed a 7 mm distal left ureteral calculus without hydronephrosis. On presentation to the ER, she was afebrile, Wbc and creatinine stable. Urinalysis with 3+blood, negative nitrite, negative bacteria, negative leukocytes. She was treated with IVF, APAP, and Toradol and was admitted for pain management. CT abdomen pelvis 07/17/20: 1. Interval development of moderate left-sided hydroureteronephrosis with delayed nephrogram secondary to unchanged positioning of the 7 mm obstructing distal ureteral calculus. 2. Punctate right nephrolithiasis. 3. Colonic diverticulosis. Pt is well-known to our service, follows with Dr. Nicole No prior hx of stones She does report a family hx of stones Patient examined at bedside this AM. Awake, resting in bed on arrival. She reports a significant improvement in her left flank pain since admission. She currently rates pain 3/10. Denies fevers or chills. No nausea or vomiting this morning. She has been NPO. Denies hematuria and dysuria. Voiding without difficulty. She denies any stone passage. Feels she is emptying her bladder well. Offers no additional complaints at this time. Allergies Allergy/AdvReac Type Severity Reaction Status Date / Time amoxicillin AdvReac Mild thrush, Verified 07/17/20 19:50 yeast infx cephalexin AdvReac Mild THRUSH, Verified 07/17/20 19:50 YEAST INFX ciprofloxacin AdvReac Mild THRUSH, Verified 07/17/20 19:50 YEAST INFX clotrimazole AdvReac Mild THRUSH Verified 07/17/20 19:50 doxycycline AdvReac Mild THRUSH, Verified 07/17/20 19:50 YEAST INFX metronidazole AdvReac Mild THRUSH Verified 07/17/20 19:50 Home Medications Medication Instructions Recorded Confirmed Type omeprazole 20 mg tablet,delayed 20 mg PO QAM tab 07/17/18 07/17/20 History release rizatriptan 10 mg tablet 10 mg PO DIRECTED PRN tab 07/17/18 07/17/20 History hydrocodone 7.5 mg-acetaminophen 1 tab PO Q8H PRN #90 tab 06/23/20 07/17/20 Rx 325 mg tablet rosuvastatin [Crestor] 10 mg PO QAM 06/29/20 07/17/20 History sertraline [Zoloft] 25 mg PO QAM 06/29/20 07/17/20 History gabapentin 300 mg capsule 300 mg PO BID #60 cap 07/01/20 07/17/20 Rx amitriptyline 25 mg PO HS 07/08/20 07/17/20 History phenazopyridine [Pyridium] 200 mg PO Q8H PRN #10 tab 07/08/20 07/17/20 Rx tamsulosin 0.4 mg capsule 0.4 mg PO HS #30 cap 07/14/20 07/17/20 Rx Patient History Medical History Anxiety Colitis Depression DJD (degenerative joint disease) of hip Gastric ulcer GERD (gastroesophageal reflux disease) History of Mohs micrographic surgery for skin cancer nose Hyperlipidemia Interstitial cystitis (10/09/13) Lumbar stenosis with neurogenic claudication Nephrolithiasis Osteoarthritis Pelvic pain (10/09/13) Urinary urgency Surgical History History of appendectomy History of back surgery lumbar> fusion History of colonoscopy History of esophagogastroduodenoscopy (EGD) History of hysterectomy History of tooth extraction S/P hip replacement left Family History Other Hypertension Pancreatic cancer Social History Smoking Status: Current every day smoker Cigarettes Per Day: 8; Second Hand Exposure: No; Do You Dip or Chew Tobacco: No; Tobacco Cessation Education Requested by Patient: No Hx Alcohol Use: No Hx Substance Use: No Preferred Language: Kazakh Communication Ability: Effective Visual Impairment: Limited Hearing Ability: Normal Traveling Passenger Agent Required: No Beliefs That Will Affect Care: None marital status: Current Living Situation: Spouse and Family current occupational status: employed 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 Other Information That Helps Us Care for You: No Feels Safe at Home: Yes Safety Concerns: Feels Safe At This Time Childhood Exposure to Second-Hand Smoke: No Assistive Devices: None Review of Systems Review of Systems: All systems reviewed & are unremarkable except as noted in HPI & below Physical Exam Constitutional: well developed and well nourished; no acute distress and not ill appearing Respiratory: normal respiratory effort and able to speak in complete sentences; no labored breathing Cardiovascular: Extremities: no calf tenderness Gastrointestinal (Abdomen): Inspection/Auscultation: abdomen not distended Percussion/Palpation: abdomen soft; abdomen nontender and no guarding Musculoskeletal: Head/Neck/Chest: normocephalic Skin: No visible rashes or lesions. Neurologic: awake Psychiatric: Orientation: alert, oriented x 3 and cooperative Genitourinary: no CVA tenderness Results & Data ([facility]) Vital Signs (Past 12 Hours) Vital Signs Temp Pulse Pulse Pulse Resp BP BP 07/18/20 08:13 36.8 C 71 16 111/73 07/17/20 23:25 37.1 C 93 H 18 148/80 H 07/17/20 22:47 95 H 18 138/86 07/17/20 22:44 95 H 18 138/86 Pulse Ox 07/18/20 08:13 95 07/17/20 23:25 93 07/17/20 22:47 95 07/17/20 22:44 95 PG Care Time/CCT Total # of Minutes Spent Total Time Spent with Patient: Total time spent is greater than 50% in coordination of care (as documented) at patient's floor/unit and/or counseling patient: Coding Level of Care Code 33452 Inpt Consult Level 5 Diagnoses Left ureteral calculus N20.1 Acute left flank pain R10.9
[2020-07-18] MEDS: HYDROmorphone INJ 0.5 MG/0.5 ML SYR IV PRN ×3 (08:50→21:19)
[2020-07-18] MEDS: ROSUVASTATIN CALCIUM 10 MG TAB PO SCH (09:41)
[2020-07-18] MEDS: GABAPENTIN 300 MG CAP PO SCH ×2 (09:41→21:27)
[2020-07-18] MEDS: PANTOprazole 40 MG TAB PO SCH (09:41)
[2020-07-18] MEDS: SERTRALINE HCL 50 MG TABLET PO SCH (09:41)
[2020-07-18] MEDS ORDERED: GENTAMICIN CONSULT ACTIVE PRN (09:46)
[2020-07-18] MEDS ORDERED: GENTAMICIN SULFATE 80 MG in DEXTROSE 5% 100 ML IV SCH (10:30)
--- NOTE | 2020-07-18 14:24 | Anesthesiology Consultation ---
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 History Surgery Operation Date: 07/18/20 13:55 Proposed Procedures p Cystoscopy, Left Ureteronephroscopy, Possible Stone Treatment, Stent Placement - Leo Romeo, DO Height/Weight Height: 5 ft 8 in Weight: 65.7 kg Allergies Allergy/AdvReac Type Severity Reaction Status Date / Time amoxicillin AdvReac Mild thrush, Verified 07/17/20 19:50 yeast infx cephalexin AdvReac Mild THRUSH, Verified 07/17/20 19:50 YEAST INFX ciprofloxacin AdvReac Mild THRUSH, Verified 07/17/20 19:50 YEAST INFX clotrimazole AdvReac Mild THRUSH Verified 07/17/20 19:50 doxycycline AdvReac Mild THRUSH, Verified 07/17/20 19:50 YEAST INFX metronidazole AdvReac Mild THRUSH Verified 07/17/20 19:50 Medications Home Medications Medication Instructions Recorded Confirmed Last Taken omeprazole 20 mg tablet,delayed 20 mg PO QAM tab 07/17/18 07/17/20 07/17/20 release rizatriptan 10 mg tablet 10 mg PO DIRECTED PRN tab 07/17/18 07/17/20 Unknown hydrocodone 7.5 mg-acetaminophen 1 tab PO Q8H PRN #90 tab 06/23/20 07/17/20 Unknown 325 mg tablet rosuvastatin [Crestor] 10 mg PO QAM 06/29/20 07/17/20 07/17/20 sertraline [Zoloft] 25 mg PO QAM 06/29/20 07/17/20 07/17/20 gabapentin 300 mg capsule 300 mg PO BID #60 cap 07/01/20 07/17/20 07/17/20 08:00 amitriptyline 25 mg PO HS 07/08/20 07/17/20 07/16/20 phenazopyridine [Pyridium] 200 mg PO Q8H PRN #10 tab 07/08/20 07/17/20 Unknown tamsulosin 0.4 mg capsule 0.4 mg PO HS #30 cap 07/14/20 07/17/20 07/16/20 Active Medications Generic Name Dose Route Start Last Admin Trade Name Freq PRN Reason Stop Dose Admin Hydrocodone Bitart/Acetaminophen 1 tab 07/17/20 23:06 07/17/20 23:26 Hydrocodone/Acetaminophen 7.5/325mg Tab PO 07/31/20 23:05 1 tab Q8H PRN Administration pain Gabapentin 300 mg 07/18/20 09:00 07/18/20 09:41 Gabapentin 300 Mg Cap PO 08/17/20 08:59 300 mg BID TIFFANY Administration Hydromorphone HCl 0.5 mg 07/17/20 23:06 07/18/20 08:50 Hydromorphone Inj 0.5 Mg/0.5 Ml Syr IV 07/31/20 23:05 0.5 mg Q3H PRN Administration Pain Sodium Chloride 1,000 mls @ 125 mls/hr 07/17/20 23:06 07/18/20 05:54 Nss 1000ml IV 08/16/20 23:05 125 mls/hr .Q8H TIFFANY Administration Pantoprazole Sodium 40 mg 07/18/20 09:00 07/18/20 09:41 Pantoprazole 40 Mg Tab PO 08/17/20 08:59 40 mg QAM TIFFANY Administration Rizatriptan Benzoate 10 mg 07/17/20 23:06 07/18/20 12:26 Rizatriptan Benzoate 10 Mg Tab PO 08/16/20 23:05 10 mg PRN PRN Administration Migraine Headache Rosuvastatin Calcium 10 mg 07/18/20 09:00 07/18/20 09:41 Rosuvastatin Calcium 10 Mg Tab PO 08/17/20 08:59 10 mg QAM TIFFANY Administration Sertraline HCl 25 mg 07/18/20 09:00 07/18/20 09:41 Sertraline Hcl 50 Mg Tablet PO 08/17/20 08:59 25 mg QAM TIFFANY Administration NPO Date Last Intake of Fluids: 07/17/20 Time Last Intake of Fluids: 15:00 Last Intake of Fluids Comment: sips of water today with pills Date Last Intake of Solids: 07/17/20 Time Last Intake of Solids: 15:00 Past Medical History Medical History Anxiety Colitis Depression DJD (degenerative joint disease) of hip Gastric ulcer GERD (gastroesophageal reflux disease) History of Mohs micrographic surgery for skin cancer nose Hyperlipidemia Interstitial cystitis (10/09/13) Lumbar stenosis with neurogenic claudication Nephrolithiasis Osteoarthritis Pelvic pain (10/09/13) Urinary urgency Past Family History Family History Other Hypertension Pancreatic cancer Past Surgical History Surgical History History of appendectomy History of back surgery lumbar> fusion History of colonoscopy History of esophagogastroduodenoscopy (EGD) History of hysterectomy History of tooth extraction S/P hip replacement left Social History Smoking Status: Current every day smoker tobacco type: cigarettes Smoking cigarettes per day: 8 Do You Dip or Chew Tobacco: No Hx Alcohol Use: No Hx Substance Use: No substance use type: does not use Physical Exam Vital Signs Last Vital Signs Temp 98.8 F 07/18/20 14:06 Pulse 79 07/18/20 14:06 Resp 15 07/18/20 14:06 BP 126/70 07/18/20 14:06 Pulse Ox 96 07/18/20 14:06 Testing Laboratory Results 07/18/20 05:40 07/18/20 05:40 Urine Color Yellow 07/17/20 23:35 Urine Appearance Clear (Clear) 07/17/20 23:35 Urine pH 5.5 (4.5-7.5) 07/17/20 23:35 Ur Specific [place] 1.026 (1.000-1.030) 07/17/20 23:35 Urine Protein Negative (Negative) 07/17/20 23:35 Urine Glucose (UA) Negative (Negative) 07/17/20 23:35 Urine Ketones Negative (Negative) 07/17/20 23:35 Urine Nitrite Negative (Negative) 07/17/20 23:35 Ur Leukocyte Esterase Negative (Negative) 07/17/20 23:35 Urine WBC (Auto) 1-5 /hpf (0-5) 07/17/20 23:35 Urine RBC (Auto) >30 /hpf (0-4) H 07/17/20 23:35 U Hyaline Cast (Auto) 0 /lpf (0-5) 07/17/20 23:35 U Epithel Cells (Auto) 0-5 /lpf (0-5) 07/17/20 23:35 Urine Bacteria (Auto) Negative (Negative) 07/17/20 23:35 Laboratory Tests 07/17/20 20:29 SARS-CoV-2 (PCR) NEGATIVE
[2020-07-18] MEDS ORDERED: MIDAZOLAM HCL 1 MG/ML 2ML VIAL ONE (15:00)
[2020-07-18] MEDS ORDERED: LIDOCAINE HCL 2% 2 ML VIAL/AMP(20MG/ML) INFIL ONE (15:00)
[2020-07-18] MEDS ORDERED: fentaNYL citrate 100 MCG/2 ML VIAL ONE (15:00)
[2020-07-18] MEDS ORDERED: PROPOFOL IV EMULSION 10 MG/ML 20 ML VIAL IV ONE (15:00)
[2020-07-18] MEDS ORDERED: ATROPINE SULFATE 0.1 MG/ML 10ML SYR IV PRN (15:15)
[2020-07-18] MEDS ORDERED: ONDANSETRON INJ 2 MG/ML 2 ML VIAL IV PRN (15:15)
[2020-07-18] MEDS ORDERED: fentaNYL citrate 100 MCG/2 ML VIAL IV PRN (15:15)
[2020-07-18] MEDS ORDERED: DEXAMETHASONE SOD INJ 4 MG/ML VIAL ONE (15:59)
[2020-07-18] MEDS ORDERED: ONDANSETRON INJ 2 MG/ML 2 ML VIAL ONE (15:59)
[2020-07-18] MEDS ORDERED: DIATRIZOATE MEGLUMINE 30% 100ML VIAL INSTIL ONE (16:05)
--- NOTE | 2020-07-18 16:08 | Operative Report ---
PG Post Operative Report Pre & Post Diagnosis Operation Date: 07/18/20 13:55 Pre-Op Diagnosis: Left ureteral calculus I identified the patient and participated in the time-out.: Yes Procedure Operation Date: 07/18/20 13:55 Actual Procedures p Cystoscopy, Left Ureteronephroscopy, Laser Lithotripsy, Stone basket extraction, retrograde pyelogram, ureteral dilation, and Stent Placement(Left) - Loe Romeo DO Surgeon Leo Romeo, II, DO Undertaker Helper None Estimated Blood Loss 1 Findings Consistent with Post-Op Diagnosis Stone destroyed to dust and small fragments and larger fragments removed. Specimens Stone Fragments Drains 6 Fr Multilength Anesthesia Type General Complications none Disposition Disposition: Recovery Room Indications Patient with bothersome stones. Risks and benefits discussed at length. Description of Procedure Patient was consented and brought back to the operating room. Patient was placed under anesthesia in the supine position and moved to the dorsal lithotomy position. Patient was prepped and draped in the regular sterile fashion. A time out was completed. A 30degree Cystoscope was placed into the bladder and the entire bladder was examined. The UO's were identified. The UO was cannulized with a catheter and a retrograde pyelogram was completed. A wire was then placed. The Rigid ureteroscope was taken into the ureter. A distal stricture was discovered. A second wire was placed and the stricture was dilated. The stone was identified. A laser fiber was selected and the stones were pulverized to dust and small fragments. Larger fragments were grasped and removed and sent for analysis. The entire area was once again examined. No residual large fragments or areas of concern were noted. The scope was slowly removed with the wire left in place. Contrast was placed through the scope for a pyelogram to assist in stent placement. The entire ureter was examined as the scope was slowly removed. No obstructions or other areas of concern were noted. With the wire in place, a 6 Fr Double J stent was placed. It was confirmed with fluoroscopy. With the stent in place, the bladder was emptied. The scope was removed. The patient was cleaned, aroused from anesthesia, and transferred to the pacu in stable condition having tolerated the procedure well with no complications. I was present and participated in all aspects of the procedure. The patient will be monitored in the PACU until transferred. Plan to keep stent for 10 days. I attest to the content of the Intraoperative Record and any orders documented therein. Any exceptions are noted below.
--- NOTE | 2020-07-18 16:27 | Fluoroscopy Report ---
FL retrograde includes kub HISTORY: 55 years-old Female LEFT STENT STATUS post placement of a left ureteral stent COMPARISON: CT abdomen pelvis 07/17/2020 TECHNIQUE: 3 spot fluoroscopic images of the abdomen were obtained utilizing 20.1 seconds fluoroscopy time FINDINGS: Guidewire within the left ureter and renal collecting system. There is persistent left-sided hydroure teronephrosis. Contrast appears to be outside of the collecting system which is suspicious for fornic eal rupture. Subsequent images demonstrate placement of a left ureteral stent which appears to be in satisfactory positioning. Calcifications of the left hemipelvis redemonstrated. Lumbar spinal fusion hardware. Left hip total joint arthroplasty. IMPRESSION: Fluoroscopic assistance as above. ACT 112: Negative or not required by law. The above report was generated using voice recognition software. It may contain grammatical, syntax o r spelling errors. Electronically signed by: Main Epps M.D. 07/18/2020 4:26 PM
--- NOTE | 2020-07-18 16:46 | Anesthesiology Progress Note ---
Date of Service July 18, 2020 Anesthesia Post Procedure Vital Signs Vital Signs: Temp Pulse Pulse Pulse Pulse Resp BP 07/18/20 16:40 74 16 07/18/20 16:30 77 16 07/18/20 16:20 36.9 C 80 15 07/18/20 14:06 37.1 C 79 15 07/18/20 08:13 36.8 C 71 16 07/17/20 23:25 37.1 C 93 H 18 07/17/20 22:47 95 H 18 07/17/20 22:44 95 H 18 138/86 07/17/20 20:00 88 18 07/17/20 18:05 36.2 C L 81 18 143/80 H BP Pulse Ox 07/18/20 16:40 130/79 96 07/18/20 16:30 132/65 96 07/18/20 16:20 99/62 L 96 07/18/20 14:06 126/70 96 07/18/20 08:13 111/73 95 07/17/20 23:25 148/80 H 93 07/17/20 22:47 138/86 95 07/17/20 22:44 95 07/17/20 20:00 153/81 H 99 07/17/20 18:05 99 Pain Intensity Left Flank: Pain Intensity: 4 Transfer of Care Handoff Completed per policy Notes Mental Status: alert / awake / arousable and participated in evaluation Patient Amnestic to Procedure: Yes Nausea / Vomiting: adequately controlled Pain: adequately controlled Airway Patency, RR, SpO2: stable & adequate BP & HR: stable & adequate Hydration State: stable & adequate Anesthetic Complications: no major complications apparent and Pt Satisfied with anesthetic care
[2020-07-18] MEDS: HYDROCODONE/ACETAMINOPHEN 7.5/325MG TAB PO PRN (19:42)
[2020-07-18] MEDS ORDERED: TAMSULOSIN HCL 0.4 MG CAP PO SCH (21:00)
[2020-07-18] MEDS ORDERED: AMITRIPTYLINE HCL 25 MG TAB PO SCH (21:00)
[2020-07-19] MEDS: SODIUM CHLORIDE 0.9% 1000ML 1,000 ML IV SCH (00:21)
[2020-07-19] MEDS ORDERED: RIZATRIPTAN BENZOATE 10 MG TAB PO PRN (03:50)
[2020-07-19] MEDS: HYDROCODONE/ACETAMINOPHEN 7.5/325MG TAB PO PRN (04:37)
[2020-07-19 07:17] LABS: Hematocrit (blood only) 41.8 % (37-47); Hemoglobin 14.3 g/dL (12.0-16.0); Mean Corpuscular Hemoglobin 32.9 pg (25-34); Mean Corpuscular Hgb Conc 34.2 g/dL (32-36); Mean Corpuscular Volume 96.1 fL (80-100); Mean Platelet Volume 9.1 fL (7.4-10.4); Platelet Count 247 K/uL (130-400); RDW Coefficient of Variation 12.8 % (11.5-14.5); RDW Standard Deviation 44.9 fL (36.4-46.3); Red Blood Count 4.35 M/uL (4.2-5.4); White Blood Count 6.74 K/uL (4.8-10.8)
[2020-07-19 07:48] LABS: Creatinine Clr Calc Pharmacy 102.6 ml/min; Est GFR (African American) 116.6; Est GFR (Non-African American) 100.6; Potassium 4.8 mmol/L (3.5-5.1)
[2020-07-19 07:49] LABS: Magnesium 2.3 mg/dl (1.8-2.4); Phosphorus 3.8 mg/dl (2.5-4.9)
--- NOTE | 2020-07-19 08:09 | Hospitalist Progress Note ---
Date of Service July 19, 2020 Assessment & Plan (1) Left ureteral calculus: (2) Ureterolithiasis: (3) Hydronephrosis due to obstruction of ureter: (4) Acute left flank pain: This is a 55-year-old female who presents with renal colic. 1. Renal colic, left distal ureteral kidney stone with moderate hydronephrosis. UA - negative for bacteria, negative for nitrates, positive for blood Patient is afebrile, there is no leukocytosis Cont. IV fluids, normal saline 125 mL per hour, IV Dilaudid p.r.n. Continue home pain medications. Continue Flomax Monitor in the medical floor. n.p.o. Consult urology - she is s/p Cystoscopy, Left Ureteronephroscopy, Laser Lithotripsy, Stone basket extraction, retrograde pyelogram, ureteral dilation, and Stent Placement with Dr. Romeo (on 07/18/20) 3. History of hyperlipidemia. Continue statin. 4. Depression. Continue Zoloft. 5. Gastroesophageal reflux disease, on omeprazole. 6. Elevated LFTs. CT scan unremarkable. LFTs trending down DVT ppx: SCDs DISPOSITION: Plan to discharge home and follow with family doctor and urology. Admission and Anticipated Discharge Date Admission Date: July 17, 2020 Subjective Patient seen in follow-up of flank pain, kidney stone Currently she is lying in bed, in no acute distress says that her flank pain is better controlled now, and also nausea has resolved She is s/p L ureteral stent placement by urology yesterday Currently denies any fevers, chills, chest pain or shortness of breath or abdominal pain Says that she is ready for discharge home Review of Systems Review of Systems: All systems reviewed & are unremarkable except as noted in HPI & below Constitutional: no fever and no chills Respiratory: no cough and no dyspnea Cardiovascular: no chest pain and no palpitations Gastrointestinal: no abdominal pain, no nausea and no vomiting Physical Exam Physical Exam: GENERAL: WD/WN, not in acute distress. HEENT: NC/AT, PERRL, EOMI, Oral mucosa moist. NECK: No JVD. No neck masses. CARDIOVASCULAR: S1, S2 heard, regular rate and rhythm, no murmur, no gallop. RESPIRATORY SYSTEM: Normal AP diameter. No accessory muscle use. No wheezing, no crackles. ABDOMEN: Soft, bowel sounds present. CVA tenderness improved, no guarding, no rigidity. No distention. NEURO: Alert and oriented and answering questions appropriately, speech fluent, no facial symmetry, moves all 4 extremities spontaneously EXTREMITIES: No edema, no erythema. SKIN: warm, dry Results & Data Results & Data ([facility]) Vital Signs (Past 12 Hours) Vital Signs Temp Pulse Pulse Resp BP BP Pulse Ox 07/19/20 07:27 37.0 C 77 16 128/79 96 07/19/20 03:07 36.8 C 65 14 107/70 94 07/18/20 22:23 36.9 C 73 16 103/66 93 07/18/20 20:10 36.7 C 74 16 117/75 93 Laboratory Results 07/19/20 07/19/20 07/18/20 Range/Units 06:59 06:59 16:07 WBC 6.74 (4.8-10.8) K/uL RBC 4.35 (4.2-5.4) M/uL Hgb 14.3 (12.0-16.0) g/dL Hct 41.8 (37-47) % MCV 96.1 (80-100) fL MCH 32.9 (25-34) pg MCHC 34.2 (32-36) g/dL RDW Std Deviation 44.9 (36.4-46.3) fL RDW Coeff of Shanna 12.8 (11.5-14.5) % Plt Count 247 (130-400) K/uL MPV 9.1 (7.4-10.4) fL Sodium 140 (136-145) mmol/L Potassium 4.8 (3.5-5.1) mmol/L Chloride 108 H (98-107) mmol/L Carbon Dioxide 28 (21-32) mmol/L Anion Gap 4.0 (3-11) BUN 18 (7-18) mg/dl Creatinine 0.61 (0.6-1.2) mg/dl Est Cr Clr Drug Dosing 102.6 ml/min Est GFR ( Amer) 116.6 Est GFR (Non-Af Amer) 100.6 BUN/Creatinine Ratio 29.0 H (10-20) Glucose 87 (70-99) mg/dl Calcium 9.0 (8.5-10.1) mg/dl Phosphorus 3.8 (2.5-4.9) mg/dl Magnesium 2.3 (1.8-2.4) mg/dl Stone Source Pending Stone Weight Pending Stone Composition Pending Stone Composition 2 Pending Medications Administered Current Inpatient Medications Hydrocodone Bitart/Acetaminophen (Hydrocodone/Acetaminophen 7.5/325mg Tab) 1 tab PO Q8H PRN PRN Reason: pain Stop: 07/31/20 23:05 Last Admin: 07/19/20 04:37 Dose: 1 tab Documented by: Amitriptyline HCl (Amitriptyline Hcl 25 Mg Tab) 25 mg PO HS [facility] Stop: 08/17/20 20:59 Last Admin: 07/18/20 21:28 Dose: 25 mg Documented by: Gabapentin (Gabapentin 300 Mg Cap) 300 mg PO BID [facility] Stop: 08/17/20 08:59 Last Admin: 07/18/20 21:27 Dose: 300 mg Documented by: Hydromorphone HCl (Hydromorphone Inj 0.5 Mg/0.5 Ml Syr) 0.5 mg IV Q3H PRN PRN Reason: Pain Stop: 07/31/20 23:05 Last Admin: 07/18/20 21:19 Dose: 0.5 mg Documented by: Sodium Chloride (Nss 1000ml) 1,000 mls @ 125 mls/hr IV .Q8H [facility] Stop: 08/16/20 23:05 Last Admin: 07/19/20 00:21 Dose: 125 mls/hr Documented by: Pantoprazole Sodium (Pantoprazole 40 Mg Tab) 40 mg PO QAM [facility] Stop: 08/17/20 08:59 Last Admin: 07/18/20 09:41 Dose: 40 mg Documented by: Rizatriptan Benzoate (Rizatriptan Benzoate 10 Mg Tab) 10 mg PO DAILY PRN PRN Reason: Migraine Headache Stop: 08/16/20 23:05 Last Admin: 07/19/20 04:37 Dose: 10 mg Documented by: Rosuvastatin Calcium (Rosuvastatin Calcium 10 Mg Tab) 10 mg PO QAM [facility] Stop: 08/17/20 08:59 Last Admin: 07/18/20 09:41 Dose: 10 mg Documented by: Sertraline HCl (Sertraline Hcl 50 Mg Tablet) [facility] [place]: 08/17/20 08:59 Last Admin: 07/18/20 09:41 Dose: 25 mg Documented by: Tamsulosin HCl (Tamsulosin Hcl 0.4 Mg Cap) 0.4 mg PO [facility] Stop: 08/17/20 20:59 Last Admin: 07/18/20 21:28 Dose: 0.4 mg Documented by:
--- NOTE | 2020-07-19 08:54 | Urology Progress Note ---
Date of Service July 19, 2020 Assessment & Plan (1) Left ureteral calculus: (2) Hydronephrosis due to obstruction of ureter: (3) Acute left flank pain: 55yo F admitted with intractable left flank pain secondary to a 7mm distal left ureteral stone with hydronephrosis - Postop day #1 status post Cystoscopy, Left Ureteronephroscopy, Laser Lithotripsy, Stone basket extraction, retrograde pyelogram, ureteral dilation, and Stent Placement with Dr. Romeo. - Patient is doing well post procedure. - Tolerating the stent with minimal discomfort. - Remains afebrile, VSS. - Labs reviewed, Wbc and creatinine stable. - OK for discharge from standpoint. - Will arrange outpatient follow-up for stent removal in 1-2 weeks. - Recommend home with pain control, flomax, pyridium, and oxybutynin as needed for bladder spasms. - Expected clinical course reviewed with patient, all questions were answered. - Thank you for allowing us to participate in the acute care of Mrs. Brown. - Please reconsult us with additional questions, concerns or changes in patient status. Admission and Anticipated Discharge Date Admission Date: July 17, 2020 Subjective Pt examined at bedside this AM. Awake, resting in bed on arrival. Pain controlled with PRN IV/PO medication. Currently rates pain 4/10. Tolerating diet, no nausea or vomiting. No fevers or chills. Some mild hematuria and dysuria as expected. Feels she is emptying her bladder well. Eager to go home today. Review of Systems Constitutional: as per Subjective / HPI Gastrointestinal: as per Subjective / HPI Genitourinary: as per Subjective / HPI Physical Exam Constitutional: well developed and well nourished; no acute distress Respiratory: no respiratory distress, no labored breathing and does not use accessory muscles Gastrointestinal (Abdomen): Inspection/Auscultation: abdomen normal to inspec tion; abdomen not distended Musculoskeletal: Head/Neck/Chest: normocephalic Skin: No visible rashes or lesions. Neurologic: awake Psychiatric: A+Ox3, euthymic affect Results & Data ([facility]) Vital Signs (Past 12 Hours) Vital Signs Temp Pulse Pulse Resp BP BP Pulse Ox 07/19/20 07:27 37.0 C 77 16 128/79 96 07/19/20 03:07 36.8 C 65 14 107/70 94 07/18/20 22:23 36.9 C 73 16 103/66 93 07/18/20 20:10 36.7 C 74 16 117/75 93 PG Care Time/CCT Total # of Minutes Spent Total Time Spent with Patient: Total time spent is greater than 50% in coordination of care (as documented) at patient's floor/unit and/or counseling patient: Coding Level of Care Code 08576 Subseq Hosp Care Lvl 2 Diagnoses Left ureteral calculus N20.1 Hydronephrosis due to obstruction of ureter N13.1 Acute left flank pain R10.9
[2020-07-19] MEDS: ROSUVASTATIN CALCIUM 10 MG TAB PO SCH (09:56)
[2020-07-19] MEDS: SERTRALINE HCL 50 MG TABLET PO SCH (09:56)
[2020-07-19] MEDS: GABAPENTIN 300 MG CAP PO SCH (09:57)
[2020-07-19] MEDS: PANTOprazole 40 MG TAB PO SCH (09:57)
--- NOTE | 2020-07-19 11:06 | Discharge Summary ---
Date of Service July 19, 2020 Admission HPI Per Admitting Provider This is a 55-year-old female with past medical history of significant arthritis of left knee, lumbar disk disorder, diskitis, tobacco use disorder, presents with left flank pain and kidney stone. The patient has history of kidney stones in the past. Today 5 p.m. she had severe pain in the left flank pain radiating to the groin and she was constantly vomiting. She received Tylenol, Dilaudid, Toradol and 2 doses of morphine in the ER and currently pain is under control. Denies any fever, chills. No burning micturition, no hematuria, no bloody stool or black stools. No diarrhea or constipation. No fever, no chills, no chest pain or shortness of breath. No cough, no headache, no blurred vision, no earache, no runny nose, no sore throat. Otherwise, she is doing okay. Admission Exam Per Admitting Provider GENERAL: The patient is of moderate build, not in acute distress. VITAL SIGNS: Temperature 36.2, pulse 88, respiratory rate 18, blood pressure 153/81, oxygen 99% on room air. HEENT: Pupils equal, round, reactive to light. Oral mucosa moist. NECK: No JVD. No neck masses. CARDIOVASCULAR: S1, S2 heard, regular rate and rhythm, no murmur, no gallop. RESPIRATORY SYSTEM: Normal AP diameter. No accessory muscle use. No wheezing, no crackles. ABDOMEN: Soft, bowel sounds present. No CVA tenderness, no guarding, no rigidity. No distention. CENTRAL NERVOUS SYSTEM: Cranial nerves II-XII grossly intact. Nonfocal. EXTREMITIES: No edema, no erythema. Principal Diagnosis (1) Left ureteral calculus: (2) Hydronephrosis due to obstruction of ureter: (3) Acute left flank pain: Discharge Exam GENERAL: WD/WN, not in acute distress. HEENT: NC/AT, PERRL, EOMI, Oral mucosa moist. NECK: No JVD. No neck masses. CARDIOVASCULAR: S1, S2 heard, regular rate and rhythm, no murmur, no gallop. RESPIRATORY SYSTEM: Normal AP diameter. No accessory muscle use. No wheezing, no crackles. ABDOMEN: Soft, bowel sounds present. CVA tenderness improved, no guarding, no rigidity. No distention. NEURO: Alert and oriented and answering questions appropriately, speech fluent, no facial symmetry, moves all 4 extremities spontaneously EXTREMITIES: No edema, no erythema. SKIN: warm, dry Discharge Data Allergies Allergy/AdvReac Type Severity Reaction Status Date / Time amoxicillin AdvReac Mild thrush, Verified 07/17/20 19:50 yeast infx cephalexin AdvReac Mild THRUSH, Verified 07/17/20 19:50 YEAST INFX ciprofloxacin AdvReac Mild THRUSH, Verified 07/17/20 19:50 YEAST INFX clotrimazole AdvReac Mild THRUSH Verified 07/17/20 19:50 doxycycline AdvReac Mild THRUSH, Verified 07/17/20 19:50 YEAST INFX metronidazole AdvReac Mild THRUSH Verified 07/17/20 19:50 Consultations 07/17/20 20:10 ED Decision to Admit Stat 07/18/20 08:00 Consult Urology Routine Procedures Performed Operation Date: 07/18/20 13:55 Actual Procedures p Cystoscopy, Left Ureteronephroscopy, Laser Lithotripsy, Basket stone extraction, retrograde pyelogram, ureteral dilation, and Left Stent Placement(Left) - Leo Romeo, Ordered Studies 07/17/20 18:28 CT abd pelvis IV con only Stat IMPRESSION: 1. Interval development of moderate left-sided hydroureteronephrosis with delayed nephrogram secondary to unchanged positioning of the 7 mm obstructing distal ureteral calculus. 2. Punctate right nephrolithiasis. 3. Colonic diverticulosis. 07/18/20 14:00 FL retrograde includes kub Routine Hospital Course (1) Left ureteral calculus: (2) Ureterolithiasis: (3) Hydronephrosis due to obstruction of ureter: (4) Acute left flank pain: This is a 55-year-old female who presents with renal colic. 1. Renal colic, left distal ureteral kidney stone with moderate hydronephrosis. UA - negative for bacteria, negative for nitrates, positive for blood Patient is afebrile, there is no leukocytosis Cont. IV fluids, normal saline 125 mL per hour, IV Dilaudid p.r.n. Continue home pain medications. Continue Flomax Monitor in the medical floor. n.p.o. Consult urology - she is s/p Cystoscopy, Left Ureteronephroscopy, Laser Lithotripsy, Stone basket extraction, retrograde pyelogram, ureteral dilation, and Stent Placement with Dr. Romeo (on 07/18/20) 3. History of hyperlipidemia. Continue statin. 4. Depression. Continue Zoloft. 5. Gastroesophageal reflux disease, on omeprazole. 6. Elevated LFTs. CT scan unremarkable. LFTs trending down DVT ppx: SCDs DISPOSITION: Plan to discharge home and follow with family doctor and urology. Total Time Total Time Spent Total Time Spent (In Minutes): 40 Total Time Includes: Examination of the Patient, Discharge Planning, Medication Reconciliation and Communication With Other Providers Discharge Plan Discharge Items Patient Disposition: Home - Self-Care Reason For Visit: KIDNEY STONES Discharge Diagnosis: (1) Left ureteral calculus: (2) Hydronephrosis due to obstruction of ureter: (3) Acute left flank pain: Activity: Per Instructions section Non-emergency contact: Primary Care Provider and Urologist Call non-emergency contact if: you have any medication questions and your symptoms worsen Follow-up/Referrals: Martita Wilkerson, [Primary Care Provider] - Diet: Regular Addtl Attending Provider Instructions: Follow-up with urology for stent removal in 1 to 2 weeks. You will be contacted about the appointment. Continue to take your Flomax, Pyridium, oxybutynin as needed for bladder spasms. You can take Tylenol 500 mg three times a day - up to max dose of 3,000 mg a day. There is tylenol/ acetaminophen in your Goldsmith tablet as well (325 mg in each tablet). You can also take Aleve and your Goldsmith as prescribed. Pending Studies at Discharge: No Studies:: Kidney stone composition Stand-Alone Forms: My [employer], Smoking Cessation Medications and DC Order Prescriptions: Continued omeprazole 20 mg tablet,delayed release (DR/EC) 20 mg PO QAM RF: 0 rizatriptan 10 mg tablet 10 mg PO DIRECTED PRN (Reason: Migraine Headache) RF: 0 hydrocodone-acetaminophen 7.5-325 mg tablet 1 tab PO Q8H PRN (Reason: pain) Qty: 90 RF: 0 gabapentin 300 mg capsule 300 mg PO BID Qty: 60 RF: 3 tamsulosin 0.4 mg capsule 0.4 mg PO HS Qty: 30 RF: 2 sertraline [Zoloft] 25 mg Tablet 25 mg PO QAM RF: 0 rosuvastatin [Crestor] 10 mg Tablet 10 mg PO QAM RF: 0 amitriptyline 25 mg Tablet 25 mg PO HS RF: 0 phenazopyridine [Pyridium] 200 mg tablet 200 mg PO Q8H PRN (Reason: pain) Qty: 10 RF: 0 Discharge Orders: Discharge Order (Routine); Ordered 07/19/20 Ordered By: Kali Sams Admission Data Admit Date/Time: 07/17/20 22:12 Attending Provider: Kali Sams Admit Provider: Juwan Richardson Primary Care Provider: Martita Wilkerson Other Providers: Juwan Richardson ; Leo Romeo
[2020-07-24 13:46] LABS: Component 2 DNR; Source URETERAL STONE
== END 2020-07-19 12:32 | disposition home or self-care (01) | DRG 661 ==
LOC: ED 18:02 → 3N 22:12

== ENCOUNTER 2024-06-13 09:07 | Inpatient (IN) ==
[2024-06-13] MEDS: SODIUM CHLORIDE 0.9% 1,000 ML IV STA (09:44)
[2024-06-13] MEDS: ONDANSETRON INJ 2 MG/ML 2 ML VIAL IV STA (09:45)
[2024-06-13] MEDS: HYDROmorphone INJ 0.5 MG/0.5 ML SYR IV STA ×3 (09:45→19:46)
--- NOTE | 2024-06-13 10:24 | Emergency Department Note ---
Impression & Plan SBO (small bowel obstruction), Hydronephrosis, left ED Provider Note NAME: MATY LOPEZ AGE: 59 SEX: F : 1965 ARRIVES VIA: Walk-In INFORMANT: Patient, ED PROVIDER(S): Amrik Yap MD CHIEF COMPLAINT: Abdominal/back HPI: This is a 59-year-old female presenting for abdominal/back pain. Patient notes that this morning some 30 a.m. she had sudden onset of midepigastric back pain rating into her back. She notes it is constant and then worsens every few minutes, feels like spasms. This never happened before. Associated with some nausea and vomiting. She does have a urostomy as well. She has no issues with this. She does not make stool and there is no issues with his either. She reports no fevers, chills, Ar[place]. No chest pain or shortness of breath. ROS: See above HPI for pertinent positives & negatives. A total of 10 systems reviewed and were otherwise negative. PAST MEDICAL HISTORY: See Below PAST SURGICAL HISTORY: See Below FAMILY HISTORY: See Below SOCIAL HISTORY: See Below HOME MEDICATIONS: See Below ALLERGIES: See Below VITALS: See Below PHYSICAL EXAMINATION: General: Retching, uncomfortable appearing Head: Normocephalic and atraumatic Eyes: Normal inspection, extraocular muscles intact Ear, nose, throat: Normal external exam Neck: Normal range of motion Respiratory: lungs clear to auscultation bilaterally Cardiovascular: Regular rate/rhythm, no murmur GI: soft, nontender, no guarding or rebound Extremities: nontender, moves all extremities Neuro: The patient awake and alert, appropriately conversive, no focal deficits, symmetric faces Skin: Warm, dry, and intact MEDICAL DECISION MAKING: This is a 59-year-old presenting for abdominal/back pain. Patient is having writhing back pain, consider pancreatitis, gastroenteritis, GERD, dissection, renal colic, SBO -Bloodwork is reviewed showing no significant leukocytosis, anemia, electrolyte or creatinine abnormality -Urinalysis does with signs of UTI, will treat with ceftriaxone -CT abdomen/pelvis does reveal a small obstruction with left hydronephrosis based on -There is currently distention/fluid in the stomach, will give NG tube to help decompress -Otherwise patient has required numerous doses of Dilaudid for pain control -Discussed with Dr. Urias, urology about the hydronephrosis related to the small bowel obstruction. He states this should be watched closely and if worsening transferred. Patient comes septic -Discussed with Dr. Cain, general surgery as well -Discussed with Dr. Jiménez for admission. Differential diagnosis: [Small bowel obstruction, pancreatitis, cholecystitis, GERD, dissection, renal colic Independent History obtained from: Diagnostics interpreted by me: ECG: None Cardiac Monitoring: An order was placed for continuous cardiac monitoring. The monitor shows a rate of 84 with sinus rhythm. Past Med/Surg History Problem List (Updated 06/13/24 @ 14:42 by Amrik Yap MD) Hydronephrosis, left (Acute) SBO (small bowel obstruction) (Acute) SBO (small bowel obstruction) Receiving pain medication Encounter for pre-operative examination Urinary urgency (Acute) Urinary tract infection, acute (Acute) Urinary frequency (Acute) Chronic interstitial cystitis with hematuria (Acute) Gross hematuria Nephrolithiasis Gastric ulcer (Chronic) DJD (degenerative joint disease) of hip (Chronic) Interstitial cystitis (Chronic 10/09/13) Lumbar stenosis with neurogenic claudication (Chronic) Pelvic pain (Chronic 10/09/13) Medical History Urinary urgency Osteoarthritis Colitis GERD (gastroesophageal reflux disease) History of Mohs micrographic surgery for skin cancer nose Depression Anxiety Hyperlipidemia Surgical History History of esophagogastroduodenoscopy (EGD) History of colonoscopy History of tooth extraction History of back surgery lumbar> fusion History of hysterectomy History of appendectomy S/P hip replacement left Family History Other Hypertension Pancreatic cancer Social History Smoking Status: Current every day smoker Tobacco Type: Cigarettes Cigarettes Per Day: 8; Second Hand Exposure: No; Do You Dip or Chew Tobacco: No; Hx Alcohol Use: No Hx Substance Use: No Preferred Language: Tamazight Communication Ability: Effective Visual Impairment: Limited Hearing Ability: Normal Wig Sales Consultant Required: No Beliefs That Will Affect Care: None marital status: Current Living Situation: Spouse and Family current occupational status: employed 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 Feels Safe at Home: Yes Childhood Exposure to Second-Hand Smoke: No Assistive Devices: None Allergies Allergies Allergy/AdvReac Type Severity Reaction Status Date / Time amoxicillin AdvReac Mild thrush, Verified 04/14/24 18:50 yeast infx cephalexin AdvReac Mild THRUSH, Verified 04/14/24 18:50 YEAST INFX ciprofloxacin AdvReac Mild THRUSH, Verified 04/14/24 18:50 YEAST INFX clotrimazole AdvReac Mild THRUSH Verified 04/14/24 18:50 doxycycline AdvReac Mild THRUSH, Verified 04/14/24 18:50 YEAST INFX metronidazole AdvReac Mild THRUSH Verified 04/14/24 18:50 Home Meds Home Medications Medication Instructions Recorded Confirmed omeprazole 20 mg tablet,delayed 20 mg PO QAM 07/17/18 06/13/24 release rizatriptan 10 mg tablet 10 mg PO DIRECTED PRN Migraine 07/17/18 06/13/24 Headache rosuvastatin 10 mg tablet (Crestor) 10 mg PO QAM 06/29/20 06/13/24 ondansetron HCl 4 mg tablet 4 mg PO Q8H 03/04/24 06/13/24 metoclopramide HCl 10 mg tablet 10 mg PO QID PRN Nausea And 04/14/24 06/13/24 Vomiting ropinirole 1 mg tablet 1 mg PO DAILY 04/14/24 06/13/24 Previous Rx's Medication Instructions Recorded duloxetine 60 mg capsule,delayed 60 mg PO DAILY #30 caps 11/30/22 release hydrocodone 10 mg-acetaminophen 1 tab PO Q8H PRN pain #90 tabs 10/30/23 325 mg tablet gabapentin 300 mg capsule 300 mg PO BID Pain #60 caps 03/04/24 Results & Data (ED) Vital Signs Vital Signs - 24 hr 06/13/24 09:15 06/13/24 09:30 06/13/24 09:36 Temperature 36.0 C L Temperature Source Skin Pulse Rate 113 H 87 Pulse Rate [Apical] 86 Respiratory Rate 26 H 18 Respiratory Effort / Characteristics Non-Labored Non-Labored Spontaneous Respiratory Depth Normal Normal Respiratory Pattern Regular Blood Pressure 103/72 Blood Pressure [Left Arm] 125/90 Blood Pressure Mean 82 Blood Pressure Mean [Left Arm] 101 Pulse Oximetry 98 100 Oxygen Delivery Method Room Air Room Air Sepsis Recent Fever Within 48 Hours No Sepsis New/Unexplained Change in Mental Status N/A Sepsis Action Taken by Nursing No Action Required 06/13/24 11:30 06/13/24 13:00 06/13/24 13:29 Temperature Temperature Source Pulse Rate 84 Pulse Rate [Apical] 82 94 H Respiratory Rate 22 18 Respiratory Effort / Characteristics Respiratory Depth Respiratory Pattern Blood Pressure Blood Pressure [Left Arm] 140/99 117/75 Blood Pressure Mean Blood Pressure Mean [Left Arm] 112 89 Pulse Oximetry 96 97 Oxygen Delivery Method Room Air Room Air Sepsis Recent Fever Within 48 Hours Sepsis New/Unexplained Change in Mental Status Sepsis Action Taken by Nursing Laboratory Data 06/13/24 09:28 06/13/24 09:28 Lab Results 06/13/24 06/13/24 06/13/24 Range/Units 09:28 09:51 10:58 WBC 9.51 (4.8-10.8) K/ul RBC 4.78 (4.20-5.40) M/uL Hgb 14.7 (12.0-16.0) g/dl Hct 45.7 (37.0-47.0) % MCV 95.6 (80.0-100.0) fL MCH 30.8 (25.0-34.0) pg MCHC 32.2 (32.0-36.0) g/dL RDW Std Deviation 48.5 H (36.4-46.3) fL RDW Coeff of Shanna 13.7 (11.5-14.5) % Plt Count 365 (130-400) K/uL MPV 9.4 (9.4-12.4) fL Immature Gran % (Auto) 0.4 % Neut % (Auto) 75.2 % Lymph % (Auto) 14.4 % Wilkin % (Auto) 6.6 % Eos % (Auto) 2.5 % Baso % (Auto) 0.9 % Neut # (Auto) 7.14 H (1.40-6.50) K/uL Lymph # (Auto) 1.37 (1.20-3.40) K/uL Wilkin # (Auto) 0.63 H (0.11-0.59) K/uL Eos # (Auto) 0.24 (0.00-0.50) K/uL Baso # (Auto) 0.09 (0.00-0.20) K/uL Immature Gran # (Auto) 0.04 (0.01-0.20) K/uL Sodium 139 (136-145) mmol/L Potassium 3.9 (3.5-5.1) mmol/L Chloride 103 (98-107) mmol/L Carbon Dioxide 27 (21-32) mmol/L Anion Gap 9 (3-11) BUN 22 (6-23) mg/dl Creatinine 0.90 (0.6-1.2) mg/dl Est Cr Clr Drug Dosing Not Reportable eGFR 72.73 BUN/Creatinine Ratio 24.4 H (10-20) Glucose 112 H (70-99(Fasting)) mg/dl Lactate 1.7 (0.4-2.0) mmol/L Calcium 10.2 (8.6-10.3) mg/dl Total Bilirubin 0.5 (0.2-1.0) mg/dl AST 19 (13-39) U/L ALT 15 (7-52) U/L Alkaline Phosphatase 165 H (34-104) U/L Troponin I High Sens 7.0 (0-14) pg/ml Total Protein 8.0 (6.0-8.3) gm/dl Albumin 4.3 (3.4-5.0) gm/dl Globulin 3.7 (2.5-4.0) gm/dl Albumin/Globulin Ratio 1.2 (0.9-2) Lipase 16 (11-82) U/L Urine Color Yellow Urine Appearance Turbid A (Clear) Urine pH 8.0 H (4.5-7.5) Ur Specific Mchenry 1.022 (1.000-1.030) Urine Protein 1+ H (Negative) Urine Glucose (UA) Negative (Negative) Urine Ketones Negative (Negative) Urine Blood 1+ H (Negative) Urine Nitrite Positive A (Negative) Urine Bilirubin Negative (Negative) Urine Urobilinogen Negative (Negative) Ur Leukocyte Esterase 3+ H (Negative) Urine WBC (Auto) >50 H (0-5) /hpf Urine RBC (Auto) 3-5 H (0-2) /hpf U Hyaline Cast (Auto) 11-20 H (0-2) /lpf U Epithel Cells (Auto) 0-2 (0-2) /hpf Urine Bacteria (Auto) 4+ H (None Seen) Amorphous Sediment Present A (None Prsent) Urine Mucus Present A (None Prsent) Administered Medications Sodium Chloride (Nss) 1,000 mls @ 150 mls/hr IV .Q6H40M TIFFANY Stop: 06/14/24 13:44 Last Admin: 06/13/24 14:07 Dose: 150 mls/hr Documented By: STEVIE Metronidazole (Flagyl) 500 mg in 100 mls @ 100 mls/hr IV Q8H [facility]; Protocol Stop: 06/15/24 13:59 Last Admin: 06/13/24 14:07 Dose: 100 mls/hr Documented By: STEVIE Discontinued Medications Hydromorphone HCl (Hydromorphone Inj 0.5 Mg/0.5 Ml Syr) 0.5 mg IV NOW STA Stop: 06/13/24 09:39 Last Admin: 06/13/24 09:45 Dose: 0.5 mg Documented By: LILIANA Hydromorphone HCl (Hydromorphone Inj 0.5 Mg/0.5 Ml Syr) 0.5 mg IV NOW STA Stop: 06/13/24 11:32 Last Admin: 06/13/24 11:38 Dose: 0.5 mg Documented By: LILIANA Sodium Chloride (Nss) 1,000 mls @ 999 mls/hr IV .Q1H1M STA Stop: 06/13/24 10:38 Last Infusion: 06/13/24 11:50 Dose: Infused Documented By: Admin: 06/13/24 09:44 Dose: 999 mls/hr Documented By: LILIANA Ceftriaxone Sodium (Rocephin) 2,000 mg in 50 mls @ 100 mls/hr IV NOW STA Stop: 06/13/24 12:00 Last Infusion: 06/13/24 12:28 Dose: Infused Documented By: Admin: 06/13/24 11:39 Dose: 100 mls/hr Documented By: LILIANA Ioversol (Optiray 320 100ml) 94 ml IV ONCE ONE Stop: 06/13/24 10:38 Last Admin: 06/13/24 10:38 Dose: 94 ml Documented By: KALYAN Ketorolac Tromethamine (Ketorolac Tromethamine 15 Mg/Ml Vial) 15 mg IV NOW ONE Stop: 06/13/24 11:12 Last Admin: 06/13/24 11:24 Dose: 15 mg Documented By: STEVIE Lorazepam (Lorazepam 2 Mg/1 Ml Vial) 0.5 mg IV NOW STA Stop: 06/13/24 13:00 Last Admin: 06/13/24 13:09 Dose: 0.5 mg Documented By: STEVIE Miscellaneous (Patient's Height &/Or Weight Needed) 1 each N/A NOW STA Stop: 06/13/24 13:45 Last Admin: 06/13/24 14:09 Dose: Not Given Documented By: STEVIE Ondansetron HCl (Ondansetron Inj 2 Mg/Ml 2 Ml Vial) 4 mg IV NOW STA Stop: 06/13/24 09:40 Last Admin: 06/13/24 09:45 Dose: 4 mg Documented By: [facility] Imaging Data Radiologist's Impression: Abdomen/Pelvis CT 06/13/24 09:39 HISTORY: Sudden onset right sided abdominal pain. Nausea. TECHNIQUE: Helical CT imaging of the abdomen was performed following uneventful administration of 94 mL of Optiray 320 IV contrast.. Images are presented in axial, sagittal, and coronal reformats. COMPARISON: CT the abdomen pelvis with contrast dated 04/04/2024. FINDINGS: Lung Bases/Inferior Mediastinum: Unremarkable Liver: Unremarkable Gallbladder: Unremarkable Spleen: Unremarkable Adrenals: Unremarkable Pancreas: Unremarkable Kidneys: Right kidney is unremarkable. Severe left hydroureteronephrosis. The left ureter is dilated to the mid segment where it passes under loops of bowel to reach the right lower quadrantileal conduit. Mild left urothelial enhancement. Stomach/Bowel: Distal esophagus, stomach, and duodenum are unremarkable. Fluid-filledLoops of small bowel throughout the abdomen are mildly dilated with transition point in the pelvis on series 2 image 62 concerning for small bowel obstruction. The bowel distal to the site of transition is hyperemic with circumferential wall thickening. Colonic diverticulosis without evidence of acute diverticulitis. Postsurgical changes of the cecum suggesting appendectomy. Lymph nodes: Unremarkable Vasculature: No abdominal aortic aneurysm. Moderate atherosclerotic vascular disease. Pelvis: Evaluation of the pelvis is compromised by streak artifact from the left hip arthroplasty. Status post cystectomy. No significant free pelvic fluid. Soft Tissues: Ventral midline postsurgical changes. Right pelvic ileostomy for urinary diversion. Bones: Left hip arthroplasty. Mild degenerative changes of the pelvis and right hip. Lumbar spine fusion hardware. Partially included IMPRESSION: 1. Postsurgical changes of cystectomy with creation of a right lower quadrant ileal conduit and ostomy for urinary diversion. Severe left hydronephrosis with dilation of the proximal left ureter and mild urothelial enhancement. Caliber change of the left ureter as it crosses under the dilated loops of small bowel in the pelvis concerning for obstruction. No obstructing calculus. Recommend correlation with urinalysis given urothelial enhancement. 2. Small bowel obstruction with transition point in the right pelvis on series 2 images 68-64. This results in dilated fluid-filled loops of small bowel measuring up to 3 cm in diameter. Small bowel loops distal to the site of obstruction are hyperemic with mild circumferential wall thickening suggesting enteritis. 3. Colonic diverticulosis. 4. Additional chronic and/or incidental findings as above. Findings were discussed with the ordering provider Dr. Amrik Yap via telephone at 1055 AM on 06/13/2024. ACT 112: Positive. There are findings on this exam that require communication between the performing entity and the patient following Patient Test Result Information Act ([place] ACT 112) guidelines. Electronically signed by Juan Carlos Segura 06-13-2024 11:03 AM Chest X-Ray 06/13/24 12:23 HISTORY: NG tube placement. TECHNIQUE: Portable AP radiographs of the chest. COMPARISON: Chest CT dated 05/02/2024. Chest radiograph dated 05/02/2024. FINDINGS: NG tube tip and sideport overlies the gastric fundus in the left upper quadrant. Spinal stimulator lead overlies the midline mid thoracic spine. No focal lung consolidation. No pneumothorax or pleural effusion. Normal heart size. Left-sided aortic arch. Midline trachea. No acute osseous abnormality. Partially included lumbar fusion hardware. Spinal stimulator generator pack is partially included overlying the right lower quadrant of the abdomen. IMPRESSION: 1. Appropriately positioned NG tube with tip and sideport overlying the gastric fundus in the left upper quadrant. 2. No acute cardiopulmonary findings. Electronically signed by Juan Carlos Segura 06-13-2024 12:42 PM Discharge Plan Visit Data Chief Complaint: Abdominal Pain Stated Complaint: UPPER ABD PAIN/INTO BACK, NAUSEA ED Provider: Amrik Yap Discharge Problem: SBO (small bowel obstruction), Hydronephrosis, left Forms Stand Alone Forms: [employer] Prescriptions Prescriptions: No Action omeprazole 20 mg tablet,delayed release (DR/EC) 20 mg PO QAM rizatriptan 10 mg tablet 10 mg PO DIRECTED PRN (Reason: Migraine Headache) duloxetine 60 mg capsule,delayed release(DR/EC) 60 mg PO DAILY Qty: 30 4RF hydrocodone-acetaminophen 10-325 mg tablet 1 tab PO Q8H PRN (Reason: pain) Qty: 90 0RF ondansetron HCl 4 mg tablet 4 mg PO Q8H gabapentin 300 mg capsule 300 mg PO BID Qty: 60 3RF rosuvastatin [Crestor] 10 mg Tablet 10 mg PO QAM ropinirole 1 mg tablet 1 mg PO DAILY metoclopramide HCl 10 mg tablet 10 mg PO QID PRN (Reason: Nausea And Vomiting) Referrals Referrals: Martita Wilkerson DO [Primary Care Provider] -
[2024-06-13 10:27] LABS: Basophils # (auto) 0.09 K/uL (0.00-0.20); Basophils % (auto) 0.9 %; Eosinophils # (auto) 0.24 K/uL (0.00-0.50); Eosinophils % (auto) 2.5 %; Hematocrit (blood only) 45.7 % (37.0-47.0); Hemoglobin 14.7 g/dl (12.0-16.0); Immature Granulocytes # (auto) 0.04 K/uL (0.01-0.20); Immature Granulocytes % (auto) 0.4 %; Lymphocytes # (auto) 1.37 K/uL (1.20-3.40); Lymphocytes % (auto) 14.4 %; Mean Corpuscular Hemoglobin 30.8 pg (25.0-34.0); Mean Corpuscular Hgb Conc 32.2 g/dL (32.0-36.0); Mean Corpuscular Volume 95.6 fL (80.0-100.0); Mean Platelet Volume 9.4 fL (9.4-12.4); Monocytes # (auto) 0.63 K/uL (0.11-0.59); Monocytes % (auto) 6.6 %; Neutrophils # (auto) 7.14 K/uL (1.40-6.50); Neutrophils % (auto) 75.2 %; Platelet Count 365 K/uL (130-400); RDW Coefficient of Variation 13.7 % (11.5-14.5); RDW Standard Deviation 48.5 fL (36.4-46.3); Red Blood Count 4.78 M/uL (4.20-5.40); White Blood Count 9.51 K/ul (4.8-10.8)
[2024-06-13 10:30] LABS: Alanine Aminotransferase 15 U/L (7-52); Albumin Globulin Ratio 1.2 (0.9-2); Albumin Level 4.3 gm/dl (3.4-5.0); Alkaline Phosphatase 165 U/L (34-104); Anion Gap 9 (3-11); Aspartate Aminotransferase 19 U/L (13-39); BUN Creatinine Ratio 24.4 (10-20); Bilirubin,Total 0.5 mg/dl (0.2-1.0); Blood Urea Nitrogen 22 mg/dl (6-23); Calcium 10.2 mg/dl (8.6-10.3); Carbon Dioxide 27 mmol/L (21-32); Chloride 103 mmol/L (98-107); Globulin 3.7 gm/dl (2.5-4.0); Glucose 112 mg/dl (70-99(Fasting)); Lipase 16 U/L (11-82); Potassium 3.9 mmol/L (3.5-5.1); Sodium 139 mmol/L (136-145)
[2024-06-13] MEDS: OPTIRAY 320 100ml IV ONE (10:38)
--- NOTE | 2024-06-13 11:03 | CT Scan Report ---
HISTORY: Sudden onset right sided abdominal pain. Nausea. TECHNIQUE: Helical CT imaging of the abdomen was performed following uneventful administration of 94 mL of Optiray 320 IV contrast.. Images are presented in axial, sagittal, and coronal reformats. COMPARISON: CT the abdomen pelvis with contrast dated 04/04/2024. FINDINGS: Lung Bases/Inferior Mediastinum: Unremarkable Liver: Unremarkable Gallbladder: Unremarkable Spleen: Unremarkable Adrenals: Unremarkable Pancreas: Unremarkable Kidneys: Right kidney is unremarkable. Severe left hydroureteronephrosis. The left ureter is dilated to the mid segment where it passes under loops of bowel to reach the right lower quadrantileal conduit. Mild left urothelial enhancement. Stomach/Bowel: Distal esophagus, stomach, and duodenum are unremarkable. Fluid-filledLoops of small bowel throughout the abdomen are mildly dilated with transition point in the pelvis on series 2 image 62 concerning for small bowel obstruction. The bowel distal to the site of transition is hyperemic with circumferential wall thickening. Colonic diverticulosis without evidence of acute diverticulitis. Postsurgical changes of the cecum suggesting appendectomy. Lymph nodes: Unremarkable Vasculature: No abdominal aortic aneurysm. Moderate atherosclerotic vascular disease. Pelvis: Evaluation of the pelvis is compromised by streak artifact from the left hip arthroplasty. Status post cystectomy. No significant free pelvic fluid. Soft Tissues: Ventral midline postsurgical changes. Right pelvic ileostomy for urinary diversion. Bones: Left hip arthroplasty. Mild degenerative changes of the pelvis and right hip. Lumbar spine fusion hardware. Partially included IMPRESSION: 1. Postsurgical changes of cystectomy with creation of a right lower quadrant ileal conduit and ostomy for urinary diversion. Severe left hydronephrosis with dilation of the proximal left ureter and mild urothelial enhancement. Caliber change of the left ureter as it crosses under the dilated loops of small bowel in the pelvis concerning for obstruction. No obstructing calculus. Recommend correlation with urinalysis given urothelial enhancement. 2. Small bowel obstruction with transition point in the right pelvis on series 2 images 68-64. This results in dilated fluid-filled loops of small bowel measuring up to 3 cm in diameter. Small bowel loops distal to the site of obstruction are hyperemic with mild circumferential wall thickening suggesting enteritis. 3. Colonic diverticulosis. 4. Additional chronic and/or incidental findings as above. Findings were discussed with the ordering provider Dr. Amrik Yap via telephone at 1055 AM on 06/13/2024. ACT 112: Positive. There are findings on this exam that require communication between the performing entity and the patient following Patient Test Result Information Act ([place] ACT 112) guidelines. Electronically signed by Juan Carlos Segura 06-13-2024 11:03 AM
[2024-06-13] MEDS: KETOROLAC TROMETHAMINE 15 MG/ML VIAL IV ONE (11:24)
[2024-06-13 11:27] LABS: Appearance Urine Turbid (Clear); Bacteria Urine Automated 4+ (None Seen); Bilirubin Urine Negative (Negative); Blood Urine 1+ (Negative); Color Urine Yellow; Epithelial Cell Urine Auto 0-2 /hpf (0-2); Glucose Urine UA Negative (Negative); Ketones Urine Negative (Negative); Leukocyte Esterase Urine 3+ (Negative); Nitrite Urine Positive (Negative); Protein Urine 1+ (Negative); Specific Gravity Urine 1.022 (1.000-1.030); Urobilinogen Urine Negative (Negative); WBC Urine Automated >50 /hpf (0-5)
[2024-06-13 11:29] LABS: Amorphous Sediment Urine Present (None Prsent); Mucus Urine Present (None Prsent)
[2024-06-13] MEDS: cefTRIAXone SODIUM 2,000 MG/50 ML BAG IV STA (11:39)
--- OUTSIDE RECORDS SUMMARY | 2024-06-13 11:39 | External Medical Summary | Summary of Care ---
Author Name Unknown Organization [facility] Address [address] [place] [address] Phone [phone] Care Team Providers Care Processing Engineer Name Role Phone Martita Wilkerson DO Primary Care Provider Reason for Visit * Reason Onset Date Comments Medication Refill 06/10/2024 Encounter Details Date Type Department Care Team (Late st Contact Info) Description 06/10/2024 Refill Family Practice [facility] [address] [place] [address] Martita Wilkerson DO [address] [place] [address] Interstitial cystitis; Vaginal pain Allergies Active Allergy Reactions Criticality Noted Date Comments Amoxicillin 06/27/2015 Other reaction(s): yeast Cephalexin 06/27/2015 Other reaction(s): trush Ciprofloxacin 06/27/2015 Other reaction(s): trush Clotrimazole 06/27/2015 Other reaction(s): trush Doxycycline 06/27/2015 Other reaction(s): yeast infection Metronidazole 06/27/2015 Other reaction(s): trush documented as of this encounter (statuses as of 06/12/2024) Medications Diclofenac Sodium 1 % External Gel (Voltaren)Indicati ons:Osteoarthritis of multiple joints, unspecified osteoarthritis type Apply to the affected area twice daily for pain. 350 g 06/16/19 22 Active Gabapentin 300 MG Oral Capsule (Neurontin)Indicat ions:HZV (herpes zoster virus) post herpetic neuralgia Take by mouth 1 Capsule in the morning AND 1 Capsule at noon AND 1 Capsule before bedtime. 90 Capsule 1 07/14/19 22 Active oxyBUTYnin Chloride ER 10 MG Oral Tablet Extended Release 24 Hour (Ditropan XL) Take 1 Tablet by mouth in the morning. 30 Tablet 11 01/15/20 24 Active Metoclopramide HCl 10 MG Oral Tablet (Reglan) Take 1 Tablet by mouth 4 times a day before meals and at bedtime. 120 Tablet 3 01/22/20 24 Active Ondansetron HCl 4 MG Oral Tablet (Zofran)Indication s:Nausea 1-2 tabs 1-2 times daily if needed for nausea. 120 Tablet 5 01/22/20 24 Active Omeprazole 20 MG Oral Capsule Delayed Release (PriLOSEC) Take 1 Capsule by mouth in the morning and 1 Capsule before bedtime. 180 Capsule 3 02/12/20 24 Active rOPINIRole HCl 1 MG Oral Tablet (Requip)Indication s:Restless legs syndrome TAKE 1 TABLET BY MOUTH ONCE DAILY 1-3 HOURS BEFORE BEDTIME WITH FOOD FOR RESTLESS LEGS 30 Tablet 5 03/02/20 24 Active DULoxetine HCl 60 MG Oral Capsule Delayed Release Particles (Cymbalta) TAKE 1 CAPSULE BY MOUTH EVERY MORNING DO NOT CRUSH, CHEW, AND/OR DIVIDE 30 Capsule 5 03/27/19 25 Active Mirtazapine 15 MG Oral Tablet (Remeron) Take 1 Tablet by mouth at bedtime. 90 Tablet 3 04/08/19 25 Active Fluconazole 100 MG Oral Tablet (Diflucan)Indicati ons:Thrush Take 2 tablets on first day, then 1 tablet daily for 2 weeks 16 Tablet 04/13/19 25 Active busPIRone HCl 15 MG Oral Tablet (Buspar)Indication s:Anxiety disorder due to medical condition,Panic attack Take 1 Tablet by mouth in the morning and 1 Tablet at noon and 1 Tablet before bedtime. 90 Tablet 1 04/21/19 25 Active Rosuvastatin Calcium 10 MG Oral Tablet (Crestor)Indicatio ns:Hyperlipidemia with target LDL less than 100 TAKE 1 TABLET BY MOUTH EVERY MORNING 30 Tablet 2 05/05/19 25 Active Rizatriptan Benzoate 10 MG Oral Tablet (Maxalt)Indication s:Migraine without aura and without status migrainosus, not intractable Take one tablet at onset of headache, may repeat in 2 hours if no improvement 30 Tablet 1 05/29/19 25 Active HYDROcodone-Acetam inophen 10-325 MG Oral TabletIndications: Interstitial cystitis,Vaginal pain Take 1 Tablet by mouth every 6 hours as needed for Pain, Severe. 120 Tablet 06/12/19 25 Active HYDROcodone-Acetam inophen 10-325 MG Oral TabletIndications: Interstitial cystitis,Vaginal pain Take 1 Tablet by mouth every 6 hours as needed for Pain, Severe. 120 Tablet 05/15/19 25 025 Discontin ued(Refil l) documented as of this encounter (statuses as of 06/12/2024) Active Problems Problem Noted Date Diagnosed Date Syrinx of spinal cord 11/14/2023 Recurrent major depressive disorder 06/27/2022 Food insecurity 06/25/2022 Overview: Per [facility] Protocol Melanoma in situ of upper extremity, right 06/13 RANDY (generalized anxiety disorder) 03/16/2021 Intractable migraine without aura and with status migrainosus 03/16/2021 Gastroesophageal reflux disease without esophagi tis 03/16/2021 RLS (restless legs syndrome) 03/16/2021 Mixed hyperlipidemia 03/16/2021 Arthritis of left knee 01/11/2017 History of basal cell carcinoma 10/28/2013 Overview (06/27/2017): 2013 BCC left nasal ala Interstitial cystitis 06/18/2013 Tobacco use disorder Disc disorder of lumbar region documented as of this encounter (statuses as of 06/12/2024) Resolved Problems Problem Noted Date Diagnosed Date Resolved Date Postmenopausal HRT (hormone replacement therapy) 01/17/2015 08/09/2016 Other acne 10/28/2013 05/26/2018 Basal cell carcinoma of dorsum of nose 07/20/2013 05/26/2018 Neoplasm of uncertain behavior of skin 04/20/2013 05/26/2018 Actinic keratosis 04/20/2013 05/26/2018 Melanocytic nevus of lower extremity 04/20/2013 05/26/2018 Caba angioma 04/20/2013 05/26/2018 Backache 07/15/2008 01/20/2018 Osteoarthrosis, unspecified whether generalized or localized, lower leg 01/26/200807/17 Overview (03/07/2010): Left knee - moderate to severe patellofemoral OA Enthesopathy of hip 01/26/2008 05/27/19 19 ADVANCE DIRECTIVE INFORMATION 03/26/2006 08/09/2016 Overview (03/26/2006): No, Advance Directive brochure offered , patient declined. documented as of this encounter (statuses as of 06/12/2024) Immunizations Name Administration Dates Next Due COVID-19 mRNA, LNP-s, No Pre serve, 2-Dose Series (Moderna) 08/07/2020,07/08/2020 Pneumococcal Conjugate Vacc, 13 Valent (Prevnar) 09/04/2019 Pneumococcal Polysaccharide PPV23 (Pneumovax) 09/07/2020 Seasonal Influenza Vac., MDV , IM, 0.5 mL (Fluzone) 10/21/2016,11/14/2015,10/29/2014,12/04,12/03/2012 Seasonal Influenza, PF, 6 M & above, IM , (FluLaval or Fluzone) 02/10/2021,01/13/2018 Seasonal Influenza, QUAD, wi th Preserv, 6 mons & Above, 0.5 mL, IM 12/24/2021 TD, Preservative Free 09/04/2019 TDAP, Age 7 and older, IM (Adacel) 07/15/2008 Zoster Vaccine Recombinant (Shingrix) 01/14/2020 ,10/09/2019 documented as of this encounter Social History Tobacco Use Types Packs/Day Years Used Date Smoking Tobacco: Every Day Cigarettes 1 37 Smokeless Tobacco: Never Comments:started age 13, mykel t x5 yrs, currently 0.5PPD Alcohol Use Standard Drinks/Week Comments No 0 (1 standard drink = 0.6 oz pur e alcohol) PHQ-2 Answer Date Recorded PHQ Adult Total Score 12 06/21/2022 Hunger Vital Sign Answer Date Recorded Within the past 12 months, y ou worried that your food would run out before you got the money to buy more. Never true 08 / Within the past 12 months, t he food you bought just didn't last and you didn't have money to get more. Sometimes true Childcare Answer Date Recorded Do you feel overwhelmed with taking care of a child, family member or friend? No 11/13/2023 Does your family need help f inding childcare? (Household - for ages 0-17 years) Not on file 11/13/2023 Clothing Answer Date Recorded Have you been unable to get clothing when it was really needed? No 11/13/2023 Is your family able to get c lothes or diapers when needed? (Household - for ages 0-17 years) Not on file 11/13/2023 Personal Safety Answer Date Recorded Do you feel unsafe or have concerns for your saf ety? No 11/13/2023 Do you have concerns for you r family's safety? (Household - for ages 0-17 years) Not on file 11/13/2023 Utilities Answer Date Recorded Do you have trouble paying y our heating, water, or electric bill? No 11/13/2023 Is your family able to pay t he heat, water, or electric bill? (Household - for ages 0-17 years) Not on file 11/13/2023 Does your family have access to good internet? (Household - for ages 0-17 years) Not on file 11/13/2023 Employment Status Answer Date Recorded Are you unemployed or without regular income? No 11/13/2023 Does the household have a re gular source of income? (Household - for ages 0-17 years) Not on file 11/13/2023 Social Connections Answer Date Recorded How often do you feel lonely or isolated from those around you? Sometimes 11/13/2023 Financial Resource Strain Answer Date R ecorded Do you have any trouble payi ng for your medications, or do you think you might in the future? No 11/13/2023 Does your family have troubl e paying for medicine? (Household - for ages 0-17 years) Not on file 11/13/2023 Transportation Needs Answer Date Record ed Do you have trouble getting a ride to medical visits or work? (Adult - for ages 18 years and over) Not on file 11/13/2023 Does your family have a hard time getting a ride to doctors visits? (Household - for ages 0-17 years) Not on file 11/13/2023 Has lack of transportation k ept you from medical appointments, meetings, work, or from getting things needed for daily living? Check all that apply. No 11/13/2023 Do you (or your family) have trouble finding or paying for a ride (transportation)? (Household - for ages 0-17 years) Not on file 11/13/2023 Housing Stability Answer Date Recorded Do you currently live in a s helter or have no steady place to sleep at night? No 11/13/2023 Do you think you are at risk of becoming homeless? (Adult - for ages 18 years and over) Not on file 11/13/2023 Does your family worry about paying for your home or becoming homeless? (Household - for ages 0-17 years) Not on file 0 11/13/2023 Are you homeless or worried that you might be in the future? No 11/13/2023 Are you (or your family) robin eless or worried that you might be in the future? (Household - for ages 0-17 years) Not on file Food Insecurity Answer Date Recorded Do you need food for this week? No 11/13/2023 Are you able to get enough f ood for your family? (Household - for ages 0-17 years) Not on file 11/13/2023 Does your family need food t his week? (Household - for ages 0-17 years) Not on file 11/13/2023 Do you always have enough fo od for your family? (Household - for ages 0-17 years) Not on file 11/13/2023 Food Insecurity Answer Date Recorded Within the past 12 months, y ou worried that your food would run out before you got the money to buy more. Never true Within the past 12 months, t he food you bought just didn't last and you didn't have money to get more. Sometimes true Do you need food for this week? 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 Authorizing Provider: TANYA CASTLE * Telephone Encounter - Tanya Castle PA-C - 06/11/2024 1:17 PM EDT Pending Prescriptions: Disp Refills HYDROcodone-Acetaminophen 10-325 MG Oral *120 Ta*0 Sig: Take 1 Tablet by mouth every 6 hours as needed for Pain, Severe. Last Visit: 06/02/2024 (in office), 03/12/2024 (telemedicine) Next Visit: 07/03/2024 Last medication order date: 05/15/2024 ACTION FOR REFILL: Too soon - not due until Saturday I will send but they should not fill until Saturday at the soonest Interstitial cystitis - HYDROcodone-Acetaminophen 10-325 MG Oral Tablet; Take 1 Tablet by mouth every 6 hours as needed for Pain, Severe. Vaginal pain - HYDROcodone-Acetaminophen 10-325 MG Oral Tablet; Take 1 Tablet by mouth every 6 hours as needed for Pain, Severe. Tanya Castle PA-C 06/11/2024 1:24 PM Inboxologist Comment: Rx refilled as covering provider only. Next refill by PCP. * Telephone Encounter - Philippe Smith CPhT - 06/11/2024 12:04 PM EDT Pt calling to check on status of Hydrocodone refill. Caller can be reached at [phone]. Thank you, Philippe Smith English As A Second Language Teacher [facility] 06/11/2024,12:04 PM * Telephone Encounter - Monet Shahid [facility] - 06/11/2024 10:15 AM EDTPending Prescriptions: Disp Refills HYDROcodone-Acetaminophen 10-325 MG Oral T*120 Ta*0 Sig: Take 1 Tablet by mouth every 6 hours as needed for Pain, Severe. * Telephone Encounter - Monet Shahid [facility] - 06/11/2024 10:15 AM EDT I have reviewed the patients controlled substance dispensing history in the Prescription Drug Monitoring Program in compliance with the [place] regulations before prescribing a controlled substance. PDMP checked on 06/11/2024. Pending Prescriptions: Disp Refills HYDROcodone-Acetaminophen 10-325 MG Oral *120 Ta*0 Sig: Take 1 Tablet by mouth every 6 hours as needed for Pain, Severe. Last Visit: 06/02/2024 (in office), 03/12/2024 (telemedicine) Next Visit: 07/03/2024 Date medication was last filled: 05/15/24 Date medication is due for refill: 06/13/24 Pharmacy: [id number] Is this request for a controlled substance? Yes and Urine Drug Screen was completed Toxicology results: Results for orders placed or performed in visit on 11/14/23 TOXICOLOGY, URINE SCREEN W/ CONFIRMATION Result Value Amphetamines Screen, U Negative Benzodiazepines Screen, U Negative Cannabinoids Screen, U Negative Cocaine Metabolite Screen, U Negative Fentanyl Screen, U Negative Hydrocodone Screen, U Positive (A) Methadone Metabolite Screen, U Negative Morphine/Codeine Screen, U Positive (A) Oxycodone Screen, U Negative Narrative Cutoff Concentrations: Drug Level Amphetamines 500 ng/mL Benzodiazepines 100 ng/mL Cannabinoids 50 ng/mL Cocaine Metabolite 150 ng/mL Fentanyl 1 ng/mL Hydrocodone / Hydromorphone 300 ng/mL Methadone Metabolite 100 ng/mL Morphine / Codeine 300 ng/mL Oxycodone / Oxymorphone 100 ng/mL Screening results are presumptive and can only be used for medical purposes. Positive screening results are reflexed to confirmatory testing. *Note: Due to a large number of results and/or encounters for the requested time period, some results have not been displayed. A complete set of results can be found in Results Review. Please approve if appropriate. Monet Walters Clinical Pharmacist [facility] [phone] 06/11/2024, 10:15 AM documented in this encounter Plan of Treatment Upcoming Encounters Date Type Department Care Team (Late st Contact Info) Description 06/16/2024 2:00 PM EDT Office Visit Gastroenterology, [facility] [address] [phone] Clay Zeng CRNP [address] [place] [address] 07/03/2024 7:40 AM EDT Office Visit Family Practice [facility] [address] [place] [address] Martita Wilkerson DO [address] [place] [place] [address] 07/07/2024 11:10 AM EDT Office Visit Pharmacy, [facility] [address] [place] [address] Pharmacist1, [facility] [address] [facility] [address] 07/20/2024 10:30 AM EDT Office Visit Orthopaedics [facility] [address] [place] [phone] Janine Romero MD [address] [place] [address] 09/14/2024 10:30 AM EDT Telemedicine Psychology [facility] [place] [address] [place] [address] Bree Gonzalez, [facility] [address] [place] [address] 10/16/2024 10:00 AM EDT Office Visit [facility] [address] [place] [address] Gina Coughlin MD [address] [facility] [address] Scheduled Procedures Name Priority Associated Diagnoses Date/Ti me COLONOSCOPY FLEXIBLE PROXIMA L DIAGNOSTIC Recall History of diverticulitis Health Maintenance Due Date Last Done Comments Cologuard 2008 Fecal Occult Blood Test 2008 Sigmoidoscopy 2008 Depression Monitoring 06/22/2023 06/21/2022 COVID-19 Vaccine ( season) 2023 08/07/2020, 07/08/2020 Mammogram 12/19/2024 12/20/2023, 1005/2022, 12/15/2021, Additional history exists Pneumococcal Vaccine: 50+ Years (3 of 3 - PCV20 or PCV21) 09/07/2025 09/07/2020, 09/04/2019 Lipid Panel 12/05/2027 12/04/2022, 01/16, 09/01/2020, Additional history exists DTap/Tdap Vaccines (3 - Td or Tdap) 09/03/2029 09/04/2019, 07/15/2008 Colonoscopy 10/03/2030 10/03/2020, 09/15, 10/05/2013, Additional history exists Colorectal Cancer Screening 10/03/2030 Zoster Vaccines Completed 01/14/2020, 10/09/2019 Lung Cancer Screening Completed 08/22/2020 , 08/24/2019, 05/26/2019 Influenza Vaccine (FLU shot) Completed , 12/24/2021, 02/10/2021, Additional history exists HPV (Gardasil) Vaccine Aged Out No lo nger eligible based on patient's age to complete this topic Hepatitis B Vaccine Aged Out No longe r eligible based on patient's age to complete this topic MENINGOCOCCAL (MENACTRA/MENVEO) Aged Out No longer eligible based on patient's age to complete this topic Meningitis B Vaccine (Bexsero/Trumemba) Aged Out No longer eligible based on patient's age to complete this topic documented as of this encounter Medical Devices Implanted Type Area Pigment Mixer Device Identifier Shelf Expiration Date Model / Serial / Lot Lead Kit Trial [id number] 50cm - [id number] - [id number] Implanted:Qty: 1 on 02/14/2023 by North Duffy DO at OR [facility] N/A: Back [employer] : PAIN MGMT 12/13/2024 [id number] / [id number] / [id number] documented as of this encounter Visit Diagnoses Diagnosis Interstitial cystitis Chronic interstitial cystitis Vaginal pain Unspecified symptom associated with female genital organs documented in this encounter Care Teams Processing Engineer Relationship Specialty Start Date End Date Martita Wilkerson DO [address] [place] [address] PCP - General Family Medicine 06/20/11 documented as of this encounter
--- OUTSIDE RECORDS SUMMARY | 2024-06-13 11:40 | External Medical Summary | Continuity of Care Document ---
Author Name Unknown Organization [facility] [address] [place] [address] [address] [place] [phone] Care Team Providers Care Talent Consultant Name Role Phone Martita Wilkerson Primary Care Physician [phone] [phone] Date(s): 05/26/24 - 05/26/24 [facility] [address] [facility] [address], [address], [address] [place] [phone] Discharge Disposition: Home or Self Care Attending Physician: MD Ac Matthew G Referring Physician: DO Wilkerson Carey K Encounter Type: [facility] [place] Allergies, Adverse Reactions, Alerts Substance Criticality Severity Reaction Reaction Severity Status ciprofloxacin thrush Active doxycycline yeast infection Ac tive clotrimazole thrush Active medtronidazole containing compounds thrush Active cephalexin thrush Active amoxicillin thrush Active Mental Status 05/26/24 Barriers to Learning one year None evide nt Mandatory Health Literacy Documentation Yes Health Literacy Communication Barriers N ever Primary Language Maced[place] Problem List Condition Confirmation Course Effective Dates Status H ealth Status Informant Vaginal atrophy Confirmed Active Interstitial cystitis Confirmed Active Hip pain, left Confirmed Active Status post total replacement of left hip Confirmed Active Osteoarthritis of hip Confirmed Active Dyspareunia in female Confirmed Active Procedures Procedure Date Related Diagnosis Body Site Status Colposuspension 1 05/06/24 Complet ed John culdoplasty 05/06/24 Comple khushboo Nerve block 12/06/23 Completed Procedure 2 07/31/23 Completed Arthroscopy of knee joint 12/16/16 Completed Appendectomy 05/28/16 Completed Decompression of lumbar spine 2014 Completed History of total replacement of left hip joint 2009 Completed 1Uterosacral 2bilateral genitofemoral nerve block and ilioinguinal/iliohypogastric nerve block Social History Social History Type Response Smoking Status Current some day lig ht smoker Sex Female Sex Representation Female (finding) Implantable Device List Procedure Provider Procedure Date Device Type Site Unknown Unknown 05/06/24 Unknown Unknown Device Identifier Serial Number Lot or Batch Number Manufacturing Date Expiration Date Distinct Identification Code MRI Safety Implantable Status Assigning Authority Unknown Unknown [id number] Unknown 10/01/27 Unknown Unknown Active Unknown Patient Care team information Care Team Personnel Name: DO Wilkerson Carey K Position: Referring DIRECT Member Role: Primary Care Provider Address: [address] [place] [address] Telecom: [phone] Name: MD Geovani, Bentley Orellana Position: Physician - Urology Member Role: Lifetime Relationship Address: [address] [place] [address] Telecom: [phone] Care Team Related Persons Name: PABLITO LOPEZ Insurance Providers Guarantor name: MATY LOPEZ Health Plan Information #: 1 Payer: [employer] Member Number: [id number] Policy Number: NA Group Number: [id number] Health Plan Information #: 2 Payer: SELF PAY Member Number: NA Policy Number: NA Group Number: NA Health Plan Information #: 3 Payer: [employer] Member Number: [id number] Policy Number: NA Group Number: NA
--- OUTSIDE RECORDS SUMMARY | 2024-06-13 11:40 | External Medical Summary | Summary of Care ---
Author Name Unknown Organization [facility] Address [address] [place] [address] Phone [phone] Care Team Providers Care Electric Truck Operator Name Role Phone Martita Wilkerson DO Primary Care Provider Reason for Visit * Reason Onset Date Comments Advice 06/09/2024 Encounter Details Date Type Department Care Team (Late st Contact Info) Description 06/09/2024 Telephone Family Practice [facility] [address] [place] [address] Martita Wilkerson DO [address] [place] [address] Advice Allergies Active Allergy Reactions Criticality Noted Date Comments Amoxicillin 06/27/2015 Other reaction(s): yeast Cephalexin 06/27/2015 Other reaction(s): trush Ciprofloxacin 06/27/2015 Other reaction(s): trush Clotrimazole 06/27/2015 Other reaction(s): trush Doxycycline 06/27/2015 Other reaction(s): yeast infection Metronidazole 06/27/2015 Other reaction(s): trush documented as of this encounter (statuses as of 06/10/2024) Medications Diclofenac Sodium 1 % External Gel [...] MORNING 30 Tablet 2 05/05/19 25 Active HYDROcodone-Acetam inophen 10-325 MG Oral TabletIndications: Interstitial cystitis,Vaginal pain Take 1 Tablet by mouth every 6 hours as needed for Pain, Severe. 120 Tablet 05/15/19 25 Active Rizatriptan Benzoate 10 MG Oral Tablet (Maxalt)Indication s:Migraine without aura and without status migrainosus, not intractable Take one tablet at onset of headache, may repeat in 2 hours if no improvement 30 Tablet 1 05/29/19 25 Active documented as of this encounter (statuses as of 06/10/2024) Active Problems Problem Noted Date Diagnosed Date Syrinx of spinal cord 11/14/2023 Recurrent major depressive disorder 06/27/2022 Food insecurity 06/25/2022 Overview: Per [facility] Protocol Melanoma in situ of upper [...] as of this encounter (statuses as of 06/10/2024) Resolved Problems Problem Noted Date Diagnosed Date [...] as of this encounter (statuses as of 06/10/2024) Immunizations Name Administration Dates Next Due COVID-19 [...] 11/13/2023 Does the household have a re lar source of income? (Household - for ages [...] encounter Miscellaneous Notes * Telephone Encounter - Bee Pro MD - 06/09/2024 4:38 PM EDT She is requesting benzodiazepine, was given limited course by myself and then by Dr. Cade Needs to follow-up with PCP Dr. Wilkerson for any prescription of ongoing controlled substances * Telephone Encounter - Myra Vivas OSA - 06/09/2024 11:31 AM EDT Pt states she was seen last week and requested anxiety medication and was told she had to wait for Psychology (appt not until August) but her pulse is running high and her aide told her to consult PCP.Pt also states she had an ostomy approx 1 month ago and her anxiety is worsening and would like PCPto prescribe something. documented in this encounter Plan of Treatment Upcoming Encounters Date Type Department Care Team (Late st Contact Info) Description 06/16/2024 2:00 PM EDT Office Visit Gastroenterology, [facility] [address] [phone] Clay Zeng CRNP [address] [address] 07/03/2024 7:40 AM EDT Office Visit Family Practice [facility] [address] [facility] [place] [address] Martita Wilkerson, [address] [facility] [place] [address] 07/20/2024 10:30 AM EDT Office Visit Orthopaedics [facility] [address] [phone] Janine Romero MD [address] [phone] 09/14/2024 10:30 AM EDT Telemedicine Psychology Jenise Kramer Luis [address] [place] [address] Bree Gonzalez, GIULIANO [address] [place] [address] 10/16/2024 10:00 AM EDT Office Visit [facility] Surgery [facility] [address] [facility] [place] [address] Gina Coughlin MD [address] [place] [address] Scheduled Procedures Name Priority Associated Diagnoses Date/Ti me COLONOSCOPY FLEXIBLE PROXIMA L DIAGNOSTIC Recall History of diverticulitis Health Maintenance Due Date Last Done Comments Cologuard 2008 Fecal Occult Blood Test 2008 Sigmoidoscopy 2008 Depression Monitoring 06/22/2023 06/21/2022 COVID-19 Vaccine ( - season) 2023 08/07/2020, 07/08/2020 Mammogram 12/19/2024 12/20/2023, 05/2022, 12/15/2021, Additional history exists Pneumococcal Vaccine: 50+ [...] this encounter Medical Devices Implanted Type Area Bean Picker Machine Operator Device Identifier Shelf Expiration Date Model / Serial / Lot Lead Kit Trial [id number] 50cm - [id number] - [id number] Implanted:Qty: 1 on 02/14/2023 by North Duffy DO at OR [facility] N/A: Back [employer] : PAIN MGMT 12/13/2024 [id number] / [id number] / [id number] documented as of this encounter Care Teams Electric Truck Operator Relationship Specialty Start Date End Date Martita Wilkerson DO [address] [place] [address] PCP - General Family Medicine 06/20/11 documented as of this encounter
--- OUTSIDE RECORDS SUMMARY | 2024-06-13 11:40 | External Medical Summary | Summary of Care ---
Author Name Unknown Organization [facility] Address [address] [place] [address] Phone [phone] Care Team Providers Care Breaker Unit Assembler Name Role Phone Ismael Wilkerson DO Primary Care Provider Reason for Referral * Evaluate & Treat - Unlimited Visits (Within 10 days (routine)) - Authorized Specialty Diagnoses / Procedures Referred By Contdorian white Referred To Contact Pharmacist / Pharmacy Diagnoses Migraine without aura and without status migrainosus, not intractable Ismael Wilkerson DO [address] [place] [address] Phone: tel: fax: Referral ID Status Reason Start Date Expiration Date Visits Requested Visits Authorized [id number] Authorized Specialty Services Required 05/28/2024 11/24/2024 99 99 Question Answer Referral Priority Within 10 days (routine) Referring Provider Role: Primary Care Reason for Referral: Migraine Where should this appointment be scheduled? [facility] Comments Pharmacist Medication Therapy Management: Minimum frequency patient should be seen in person for medication management: as appropriate per clinical condition and patient status By my signature, I understand that my patient Arminda Brown will have her medication therapy managed by the [facility] ([facility]) per established policies, procedures, and protocols. I also certify that this referral may serve as an initiation of service for the management of drug therapy in the above noted patient. [facility] providers will be responsible for scheduling patient visits, obtaining appropriate laboratory studies, and adjusting medication management therapy per patient's need, in addition to those roles spelled out in the clinic policy, procedures, and drug management protocols. I understand that the service provided by the [facility] is voluntary and have informed patient that they can refuse the service at their discretion. I am aware that the [facility] will provide me with a copy of the patient encounter via my [facility]. I authorize the [facility] to carry out these activities on my behalf. I consider this program to be a necessary part of the patient's medical care. Ismael Wilkerson DO Reason for Visit * Reason Onset Date Comments Medication Refill 05/26/2024 Encounter Details Date Type Department Care Team (Late st Contact Info) Description 05/26/2024 Telephone Family Practice [facility] [place] [address] [place] [address] Jc Bush DO [address] [place] [address] Medication Refill Allergies Active Allergy Reactions Criticality Noted Date Comments Amoxicillin 06/27/2015 Other reaction(s): yeast Cephalexin 06/27/2015 Other reaction(s): trush Ciprofloxacin 06/27/2015 Other reaction(s): trush Clotrimazole 06/27/2015 Other reaction(s): trush Doxycycline 06/27/2015 Other reaction(s): yeast infection Metronidazole 06/27/2015 Other reaction(s): trush documented as of this encounter (statuses as of 06/03/2024) Medications Diclofenac Sodium 1 % External Gel (Voltaren)Indicat ions: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 350 g 022 Active Gabapentin 300 MG Oral Capsule (Neurontin)Indica tions:HZV (herpes zoster virus) post herpetic neuralgia Take by mouth 1 Capsule in the morning AND 1 Capsule at noon AND 1 Capsule before bedtime. 90 Capsule 1 022 Active oxyBUTYnin Chloride ER 10 MG Oral Tablet Extended Release 24 Hour (Ditropan XL) Take 1 Tablet by mouth in the morning. 30 Tablet 11 024 Active Metoclopramide HCl 10 MG Oral Tablet (Reglan) Take 1 Tablet by mouth 4 times a day before meals and at bedtime. 120 Tablet 3 024 Active Ondansetron HCl 4 MG Oral Tablet (Zofran)Indicatio ns:Nausea 1-2 tabs 1-2 times daily if needed for nausea. 120 Tablet 5 024 Active Omeprazole 20 MG Oral Capsule Delayed Release (PriLOSEC) Take 1 Capsule by mouth in the morning and 1 Capsule before bedtime. 180 Capsule 3 024 Active rOPINIRole HCl 1 MG Oral Tablet (Requip)Indicatio ns:Restless legs syndrome TAKE 1 TABLET BY MOUTH ONCE DAILY 1-3 HOURS BEFORE BEDTIME WITH FOOD FOR RESTLESS LEGS 30 Tablet 5 024 Active DULoxetine HCl 60 MG Oral Capsule Delayed Release Particles (Cymbalta) TAKE 1 CAPSULE BY MOUTH EVERY MORNING DO NOT CRUSH, CHEW, AND/OR DIVIDE 30 Capsule 5 025 Active Mirtazapine 15 MG Oral Tablet (Remeron) Take 1 Tablet by mouth at bedtime. 90 Tablet 3 025 Active Fluconazole 100 MG Oral Tablet (Diflucan)Indicat ions:Thrush Take 2 tablets on first day, then 1 tablet daily for 2 weeks 16 Tablet 025 Active busPIRone HCl 15 MG Oral Tablet (Buspar)Indicatio ns:Anxiety disorder due to medical condition,Panic attack Take 1 Tablet by mouth in the morning and 1 Tablet at noon and 1 Tablet before bedtime. 90 Tablet 1 025 Active Rosuvastatin Calcium 10 MG Oral Tablet (Crestor)Indicati ons:Hyperlipidemi a with target LDL less than 100 TAKE 1 TABLET BY MOUTH EVERY MORNING 30 Tablet 2 025 Active HYDROcodone-Aceta minophen 10-325 MG Oral TabletIndications :Interstitial cystitis,Vaginal pain Take 1 Tablet by mouth every 6 hours as needed for Pain, Severe. 120 Tablet 025 Active Rizatriptan Benzoate 10 MG Oral Tablet (Maxalt)Indicatio ns:Migraine without aura and without status migrainosus, not intractable Take one tablet at onset of headache, may repeat in 2 hours if no improvement 30 Tablet 1 025 Active Rizatriptan Benzoate 10 MG Oral Tablet (Maxalt)Indicatio ns:Migraine without aura and without status migrainosus, not intractable TAKE ONE TABLET AT ONSET OF HEADACHE, MAY REPEAT IN 2 HOURS IF NO IMPROVEMENT 30 Tablet 1 025 2024 Discontinued(R efill) Nystatin 610481 UNIT/ML Mouth/Throat Suspension Swish and swallow 5 mL in the morning and 5 mL at noon and 5 mL in the evening and 5 mL before bedtime. For thrush.. 240 mL 1 025 2024 Discontinued LORazepam 2 MG Oral Tablet (Ativan)Indicatio ns:Anxiety disorder due to medical condition,Panic attack Take 1 tablet by mouth daily as needed for anxiety 30 Tablet 025 2024 Discontinued diazePAM 5 MG Oral Tablet (Valium) Take 1 Tablet by mouth every 8 hours as needed for Anxiety. 10 Tablet 025 2024 Discontinued documented as of this encounter (statuses as of 06/03/2024) Active Problems Problem Noted Date Diagnosed Date Syrinx of spinal cord 11/14/2023 Recurrent major depressive disorder 06/27/2022 Food insecurity 06/25/2022 Overview: Per [facility] Protocol Melanoma in situ of [...] as of this encounter (statuses as of 06/03/2024) Resolved Problems Problem Noted Date Diagnosed Date [...] patellofemoral OA Enthesopathy of hip 01/26/2008 05/27/19 ADVANCE DIRECTIVE INFORMATION 03/26/2006 08/09/2016 Overview (03/26/2006): No, Advance Directive brochure offered , patient declined. documented as of this encounter (statuses as of 06/03/2024) Immunizations Name Administration Dates Next Due COVID-19 [...] encounter Miscellaneous Notes * Telephone Encounter - Babs Lantigua OSA - 06/03/2024 12:10 PM EDT Pt scheduled 09/14/24 and on waitlist * Telephone Encounter - Babs Wright LPN - 06/03/2024 11:40 AM EDT Can pt be added to a wait list for sooner appt? * Telephone Encounter - Fatou Guerra OSA - 06/02/2024 4:29 PM EDT Pt called in very concerned about not being able to see psych until Francisco J. She stated that she would not be able to wait that long and if the doctor could put in a word please to get an sooner appt * Telephone Encounter - Ramon Waters [facility] - 05/28/2024 10:58 AM EDTSigned Prescriptions: Disp Refills Rizatriptan Benzoate 10 MG Oral Tablet (Ma*30 Tab*1 Sig: Take one tablet at onset of headache, may repeat in 2 hours if no improvement Authorizing Provider: ISMAEL WILKERSON Ordering User: RAMON WATERS * Telephone Encounter - Ramon Waters RPh - 05/28/2024 10:44 AM EDT Images from the original note were not included. Patient was identified by review of current headache medication use. See refill history below. Patient has been using more than 30 tabs per month, said she does not always need to take a second dose so is having more than 15 headaches per month. Reached out to inform pt about MTDM management to determine interest. Patient agrees to see MTDM. Please sign pended referral to [facility] for migraine management if appropriate. Ramon Waters RPh 05/28/2024, 10:50 AM documented in this encounter Plan of Treatment Upcoming Encounters Date Type Department Care Team (Late st Contact Info) Description 06/16/2024 2:00 PM EDT Office Visit Gastroenterology, [facility] [address] [phone] Clay Zeng CRNP [address] [place] [address] 07/20/2024 10:30 AM EDT Office Visit Orthopaedics [facility] [address] [place] [phone] Janine Romero MD [address] [place] [phone] 09/14/2024 10:30 AM EDT Telemedicine Psychology [address] [phone] Bree Gonzalez, WOMEN DESIGNER [address] [place] [address] 09/28/2024 3:00 PM EDT Office Visit Family Practice [facility] [address] [place], [place] [address] Ismael Wilkerson DO 200 [facility] [place] [address] 10/16/2024 10:00 AM EDT Office Visit [facility] Surgery [facility] [address] [place] [address] Gina Coughlin MD [address] [facility] [place] [address] Scheduled Procedures Name Priority Associated Diagnoses Date/Ti me COLONOSCOPY FLEXIBLE PROXIMA L DIAGNOSTIC Recall History of diverticulitis Scheduled Referrals Name Type Priority Associated Diagnoses Orde r Schedule PHARMACIST MEDS THERAPY MGMT REFERRAL OP Referral Within 10 days (routine) Migraine without aura and without status migrainosus, not intractable Ordered: 05/28/2024 Health Maintenance Due Date Last Done Comments [...] this encounter Medical Devices Implanted Type Area Medical Technologist Microbiology Device Identifier Shelf Expiration Date Model / Serial / Lot Lead Kit Trial [id number] 50cm - [id number] - [id number] Implanted:Qty: 1 on 02/14/2023 by North Duffy DO at OR [facility] N/A: Back [employer] : PAIN MGMT 12/13/2024 [id number] / [id number] / [id number] documented as of this encounter Visit Diagnoses Diagnosis Migraine without aura and without status migrainosus, not intractable Migraine without aura, without mention of intractable migraine without mention of status migrainosus documented in this encounter Care Teams Breaker Unit Assembler Relationship Specialty Start Date End Date Ismael Wilkerson DO [address] [place] [address] PCP - General Family Medicine 06/20/11 documented as of this encounter
--- OUTSIDE RECORDS SUMMARY | 2024-06-13 11:40 | External Medical Summary | Summary of Care ---
Author Name Unknown Organization [facility] Address [address] [place] [address] Phone [phone] Care Team Providers Care Tube Machine Operator Name Role Phone Martita Wilkerson DO Primary Care Provider Encounter Details Date Type Department Care Team (Late st Contact Info) Description 05/16/2024 Result Scan Unspecified Department Martita Wilkerson DO [address] [place], [place] [id number] <No scans attached> Allergies Active Allergy Reactions Criticality Noted Date Comments Amoxicillin 06/27/2015 Other reaction(s): yeast Cephalexin 06/27/2015 Other reaction(s): trush Ciprofloxacin 06/27/2015 Other reaction(s): trush Clotrimazole 06/27/2015 Other reaction(s): trush Doxycycline 06/27/2015 Other reaction(s): yeast infection Metronidazole 06/27/2015 Other reaction(s): trush documented as of this encounter (statuses as of 05/18/2024) Medications Diclofenac Sodium 1 % External Gel [...] LEGS 30 Tablet 5 03/02/20 24 Active Rizatriptan Benzoate 10 MG Oral Tablet (Maxalt)Indication s:Migraine without aura and without status migrainosus, not intractable TAKE ONE TABLET AT ONSET OF HEADACHE, MAY REPEAT IN 2 HOURS IF NO IMPROVEMENT 30 Tablet 1 03/27/19 25 Active DULoxetine HCl 60 MG Oral Capsule [...] 2 weeks 16 Tablet 04/13/19 25 Active LORazepam 2 MG Oral Tablet (Ativan)Indication s:Anxiety disorder due to medical condition,Panic attack Take 1 tablet by mouth daily as needed for anxiety 30 Tablet 04/21/19 25 Active busPIRone HCl 15 MG Oral [...] MORNING 30 Tablet 2 05/05/19 25 Active diazePAM 5 MG Oral Tablet (Valium) Take 1 Tablet by mouth every 8 hours as needed for Anxiety. 10 Tablet 05/04/19 25 Active HYDROcodone-Acetam inophen 10-325 MG Oral TabletIndications: Interstitial cystitis,Vaginal pain Take 1 Tablet by mouth every 6 hours as needed for Pain, Severe. 120 Tablet 05/15/19 25 Active documented as of this encounter (statuses as of 05/18/2024) Active Problems Problem Noted Date Diagnosed Date Syrinx of spinal cord 11/14/2023 Recurrent major depressive disorder 06/27/2022 Food insecurity 06/25/2022 Overview: Per [email or web address] Protocol Melanoma in situ of [...] as of this encounter (statuses as of 05/18/2024) Resolved Problems Problem Noted Date Diagnosed Date [...] as of this encounter (statuses as of 05/18/2024) Immunizations Name Administration Dates Next Due COVID-19 [...] on file documented as of this encounter Plan of Treatment Upcoming Encounters Date Type Department Care Team (Late st Contact Info) Description 06/02/2024 11:00 AM EDT Office Visit Family Practice [facility] [address] [place] [address] Bee Pro MD [address] [place] [address] 06/16/2024 2:00 PM EDT Office Visit Gastroenterology, [facility] [address] [place] [address] Clay Zeng CRNP [address] [place] [address] 07/20/2024 10:30 AM EDT Office Visit Orthopaedics [facility] [address] [place] [phone] Janine Romero MD [address] [place] [phone] 10/16/2024 10:00 AM EDT Office Visit [facility] [address] [facility] [address] [place], [place] [address] Gina Coughlin MD [address] [place] [address] [place] [address] Scheduled Procedures Name Priority Associated Diagnoses Date/Ti [...] this encounter Medical Devices Implanted Type Area Produce Associate Device Identifier Shelf Expiration Date Model / Serial / Lot Lead Kit Trial [id number] 50cm - [id number] - [id number] Implanted:Qty: 1 on 02/14/2023 by North Duffy DO at OR [facility] N/A: Back [employer] [facility] : PAIN MGMT 12/13/2024 [id number] / [id number] / [id number] documented as of this encounter Procedures Procedure Name Priority Date/Time Associated Diagnosis Comments OUTSIDE LAB RESULTS 05/16/2024 documented in this encounter Results * OUTSIDE LAB RESULTS (05/16/2024) 05/16/2024 Martita Wilkerson DO LABORATORY Final R esult documented in this encounter Care Teams Tube Machine Operator Relationship Specialty Start Date End Date Martita Wilkerson DO [address] [place], [place] [address] [place] [address] PCP - General Family Medicine 06/20/11 documented as of this encounter
--- OUTSIDE RECORDS SUMMARY | 2024-06-13 11:40 | External Medical Summary | Summary of Care ---
Author Name Unknown Organization [facility] Address [address] [place] [address] Phone [phone] Care Team Providers Care Psychiatric Nursing Assistant Name Role Phone Ismael Wilkerson DO Primary Care Provider Reason for Referral * Evaluate & Treat - Unlimited Visits (Within 10 days (routine)) - Authorized Specialty Diagnoses / Procedures Referred By Contdorian white Referred To Contact Pharmacist / Pharmacy Diagnoses Migraine without aura and without status migrainosus, not intractable Ismael Wilkerson DO [address] [place] [address] Phone: tel: fax: Referral ID Status Reason Start Date Expiration Date Visits Requested Visits Authorized [id number] Authorized Specialty Services Required 05/28/2024 11/24/2024 99 [...] have her medication therapy managed by the [facility] ([facility]) per established policies, procedures, and protocols. I also certify that this referral may serve as an initiation of service for the management of drug therapy in the above noted patient. [facility] providers will be responsible for scheduling patient visits, obtaining appropriate laboratory studies, and adjusting medication management therapy per patient's need, in addition to those roles spelled out in the clinic policy, procedures, and drug management protocols. I understand that the service provided by the [facility] is voluntary and have informed patient that they can refuse the service at their discretion. I am aware that the [facility] will provide me with a copy of the patient encounter via my [facility]. I authorize the [facility] to carry out these activities on my behalf. I consider this program to be a necessary part of the patient's medical care. Ismael Wilkerson DO Reason for Visit * Reason Onset Date Comments Medication Refill 05/26/2024 Encounter Details Date Type Department Care Team (Late st Contact Info) Description 05/26/2024 Telephone Family Practice [facility] [place] [address] [place] [address] Jc Bush DO [address] [place] [address] Medication Refill Allergies Active Allergy Reactions Criticality [...] Tablet 1 025 2024 Discontinued(R efill) Nystatin 560939 UNIT/ML Mouth/Throat Suspension Swish and swallow 5 [...] disorder 06/27/2022 Food insecurity 06/25/2022 Overview: Per [facility] Protocol Melanoma in situ of [...] appt * Telephone Encounter - Ramon Waters [facility] - 05/28/2024 10:58 AM EDTSigned Prescriptions: Disp [...] see MTDM. Please sign pended referral to [facility] for migraine management if appropriate. Ramon Waters RPh 05/28/2024, 10:50 AM documented in this encounter Plan of Treatment Upcoming Encounters Date Type Department Care Team (Late st Contact Info) Description 06/16/2024 2:00 PM EDT Office Visit Gastroenterology, [facility] [address] [phone] Clay Zeng CRNP [address] [place] [address] 07/20/2024 10:30 AM EDT Office Visit Orthopaedics [facility] [address] [place] [phone] Janine Romero MD [address] [place] [phone] 09/14/2024 10:30 AM EDT Telemedicine Psychology Luis Hameed [address] [phone] Bree Gonzalez, [employer] [address] [place] [address] 09/28/2024 3:00 PM EDT Office Visit Family Practice [facility] [address] [place], [place] [address] Ismael Wilkerson DO 200 [facility] [place] [address] 10/16/2024 10:00 AM EDT Office Visit MOHS Surgery [facility] [address] [place] [address] Gina Coughlin MD 200 [facility] [place] [address] Scheduled Procedures Name Priority Associated Diagnoses Date/Ti [...] this encounter Medical Devices Implanted Type Area Heel Shaper Device Identifier Shelf Expiration Date Model / Serial / Lot Lead Kit Trial [id number] 50cm - [id number] - [id number] Implanted:Qty: 1 on 02/14/2023 by North Duffy DO at OR [facility] N/A: Back [employer] : PAIN MGMT 12/13/2024 [id number] / [id number] / [id number] documented as of this encounter Visit Diagnoses Diagnosis Migraine without aura and without status migrainosus, not intractable Migraine without aura, without mention of intractable migraine without mention of status migrainosus documented in this encounter Care Teams Psychiatric Nursing Assistant Relationship Specialty Start Date End Date Ismael Wilkerson DO [address] [place] [address] PCP - General Family Medicine 06/20/11 documented as of this encounter
--- OUTSIDE RECORDS SUMMARY | 2024-06-13 11:40 | External Medical Summary | Summary of Care ---
Author Name Unknown Organization [facility] Address [address] [place] [address] Phone [phone] Care Team Providers Care Band Presser Name Role Phone Ismael Wilkerson DO Primary Care Provider Reason for Referral * Evaluate & Treat - Unlimited Visits (Within 10 days (routine)) - Authorized Specialty Diagnoses / Procedures Referred By Contdorian white Referred To Contact Pharmacist / Pharmacy Diagnoses Migraine without aura and without status migrainosus, not intractable Ismael Wilkerson DO [address] [place] [address] Phone: tel: fax: Referral ID Status Reason Start Date Expiration Date Visits Requested Visits Authorized [id number] Authorized Specialty Services Required 05/28/2024 11/24/2024 99 [...] have her medication therapy managed by the [facility] ([facility]) per established policies, procedures, and protocols. I also certify that this referral may serve as an initiation of service for the management of drug therapy in the above noted patient. [facility] providers will be responsible for scheduling patient visits, obtaining appropriate laboratory studies, and adjusting medication management therapy per patient's need, in addition to those roles spelled out in the clinic policy, procedures, and drug management protocols. I understand that the service provided by the [facility] is voluntary and have informed patient that they can refuse the service at their discretion. I am aware that the [facility] will provide me with a copy of the patient encounter via my [employer] [facility]. I authorize the [facility] to carry out these activities on my behalf. I consider this program to be a necessary part of the patient's medical care. Ismael Wilkerson DO Reason for Visit * Reason Onset Date Comments Medication Refill 05/26/2024 Encounter Details Date Type Department Care Team (Late st Contact Info) Description 05/26/2024 Telephone Family Practice [facility] [place] [address] [place] [address] Jc Bush DO [address] [place] [address] Medication Refill Allergies Active Allergy Reactions Criticality Noted Date Comments Amoxicillin 06/27/2015 Other reaction(s): yeast Cephalexin 06/27/2015 Other reaction(s): trush Ciprofloxacin 06/27/2015 Other reaction(s): trush Clotrimazole 06/27/2015 Other reaction(s): trush Doxycycline 06/27/2015 Other reaction(s): yeast infection Metronidazole 06/27/2015 Other reaction(s): trush documented as of this encounter (statuses as of 05/28/2024) Medications Diclofenac Sodium 1 % External Gel [...] improvement 30 Tablet 1 05/29/19 25 Active Rizatriptan Benzoate 10 MG Oral Tablet (Maxalt)Indication s:Migraine without aura and without status migrainosus, not intractable TAKE ONE TABLET AT ONSET OF HEADACHE, MAY REPEAT IN 2 HOURS IF NO IMPROVEMENT 30 Tablet 1 03/27/19 25 025 Discontin ued(Refil l) documented as of this encounter (statuses as of 05/28/2024) Active Problems Problem Noted Date Diagnosed Date [...] as of this encounter (statuses as of 05/28/2024) Resolved Problems Problem Noted Date Diagnosed Date [...] as of this encounter (statuses as of 05/28/2024) Immunizations Name Administration Dates Next Due COVID-19 [...] encounter Miscellaneous Notes * Telephone Encounter - Ramon Waters [facility] - 05/28/2024 10:58 AM EDTSigned Prescriptions: Disp Refills Rizatriptan Benzoate 10 MG Oral Tablet (Ma*30 Tab*1 Sig: Take one tablet at onset of headache, may repeat in 2 hours if no improvement Authorizing Provider: ISMAEL WILKERSON Ordering User: RAMON WATERS * Telephone Encounter - Ramon Waters RP - 05/28/2024 10:44 AM EDT Images from [...] to determine interest. Patient agrees to see [facility]. Please sign pended referral to [facility] for migraine management if appropriate. Ramon Waters RPh 05/28/2024, 10:50 AM documented in this encounter Plan of Treatment Upcoming Encounters Date Type Department Care Team (Late st Contact Info) Description 06/02/2024 11:00 AM EDT Office Visit [facility] [address] [place] [address] [place] [address] Bee Pro MD [address] [place] [address] 06/16/2024 2:00 PM EDT Office Visit Gastroenterology, [facility] [address] [place] [address] Clay Zeng CRNP [address] [place] [address] 07/20/2024 10:30 AM EDT Office Visit Orthopaedics [facility] [address] [place] [phone] Janine Romero MD [address] [place] [address] 10/16/2024 10:00 AM EDT Office Visit [facility] Surgery [facility] [address] [place] [address] Gina Coughlin MD [address] [place] [address] Scheduled Procedures Name Priority Associated Diagnoses Date/Ti [...] this encounter Medical Devices Implanted Type Area Meat Stocker Device Identifier Shelf Expiration Date Model / Serial / Lot Lead Kit Trial [id number] 50cm - [id number] - [id number] Implanted:Qty: 1 on 02/14/2023 by North Duffy DO at OR [facility] N/A: Back [employer] : PAIN MGMT 12/13/2024 [id number] / [id number] / [id number] documented as of this encounter Visit Diagnoses Diagnosis Migraine without aura and without status migrainosus, not intractable Migraine without aura, without mention of intractable migraine without mention of status migrainosus documented in this encounter Care Teams Band Presser Relationship Specialty Start Date End Date Ismael Wilkerson DO [address] [place] [address] PCP - General Family Medicine 06/20/11 documented as of this encounter
--- OUTSIDE RECORDS SUMMARY | 2024-06-13 11:40 | External Medical Summary | Summary of Care ---
Author Name Unknown Organization [facility] Address [address] [place] [address] Phone [phone] Care Team Providers Care Biomaterials Engineer Name Role Phone Ismael Wilkerson DO Primary Care Provider Reason for Referral * Evaluate & Treat - Unlimited Visits (Within 10 days (routine)) - Authorized Specialty Diagnoses / Procedures Referred By Contdorian white Referred To Contact Pharmacist / Pharmacy Diagnoses Migraine without aura and without status migrainosus, not intractable Ismael Wilkerson DO [address] [place] [address] Phone: tel: fax: Referral ID Status Reason Start Date Expiration Date Visits Requested Visits Authorized [id number] Authorized Specialty Services Required 05/28/2024 11/24/2024 99 [...] have her medication therapy managed by the [facility] Therapy [facility] Management [facility] ([facility]) per established policies, procedures, and protocols. I also certify that this referral may serve as an initiation of service for the management of drug therapy in the above noted patient. [facility] providers will be responsible for scheduling patient visits, obtaining appropriate laboratory studies, and adjusting medication management therapy per patient's need, in addition to those roles spelled out in the clinic policy, procedures, and drug management protocols. I understand that the service provided by the [facility] is voluntary and have informed patient that they can refuse the service at their discretion. I am aware that the [facility] Clinic will provide me with a copy of the patient encounter via my [facility]. I authorize the [facility] to carry out these activities on my behalf. I consider this program to be a necessary part of the patient's medical care. Ismael Wilkerson DO Reason for Visit * Reason Onset Date Comments Medication Refill 05/26/2024 Encounter Details Date Type Department Care Team (Late st Contact Info) Description 05/26/2024 Telephone Family Practice [facility] [place] [address] [place] [address] Jc Bush DO [address] [place] [address] Medication Refill Allergies Active Allergy Reactions Criticality [...] Tablet 1 025 2024 Discontinued(R efill) Nystatin 353144 UNIT/ML Mouth/Throat Suspension Swish and swallow 5 [...] disorder 06/27/2022 Food insecurity 06/25/2022 Overview: Per [facility] Protocol Melanoma in situ of [...] encounter Miscellaneous Notes * Telephone Encounter - Fatou Guerra [facility] - 06/02/2024 4:29 PM EDT Pt called in very concerned about not being able to see psych until Aug. She stated that she would not be able to wait that long and if the doctor could put in a word please to get an sooner appt * Telephone Encounter - Ramon Waters [facility] - 05/28/2024 10:58 AM EDTSigned Prescriptions: Disp [...] see MTDM. Please sign pended referral to [facility] for migraine management if appropriate. Ramon Waters RPh 05/28/2024, 10:50 AM documented in this encounter Plan of Treatment Upcoming Encounters Date Type Department Care Team (Late st Contact Info) Description 06/16/2024 2:00 PM EDT Office Visit Gastroenterology, [facility] [address] [place] [phone] Clay Zeng CRNP [address] [place] [address] 07/20/2024 10:30 AM EDT Office Visit Orthopaedics [facility] [address] [place] [phone] Janine Romero MD [address] [place] [phone] 09/28/2024 3:00 PM EDT Office Visit Family Practice [facility] 200 [facility] [place] [address] Ismael Wilkerson DO 200 [facility] [place] [address] 10/16/2024 10:00 AM EDT Office Visit [facility] Surgery [facility] [address] Gina Coughlin MD [address] [place] [address] [place] [address] Scheduled Procedures Name Priority Associated Diagnoses Date/Ti [...] this encounter Medical Devices Implanted Type Area Residential Door Installer Device Identifier Shelf Expiration Date Model / Serial / Lot Lead Kit Trial [id number] 50cm - [id number] - [id number] Implanted:Qty: 1 on 02/14/2023 by North Duffy DO at OR [facility] N/A: Back [employer] : PAIN MGMT 12/13/2024 [id number] 50E0 / [id number] / [id number] documented as of this encounter Visit Diagnoses Diagnosis Migraine without aura and without status migrainosus, not intractable Migraine without aura, without mention of intractable migraine without mention of status migrainosus documented in this encounter Care Teams Biomaterials Engineer Relationship Specialty Start Date End Date Ismael Wilkerson DO [address] [place] [address] PCP - General Family Medicine 06/20/11 documented as of this encounter
--- OUTSIDE RECORDS SUMMARY | 2024-06-13 11:40 | External Medical Summary | Summary of Care ---
Author Name Unknown Organization [facility] Address [address] [place] [address] Phone [phone] Care Team Providers Care Planer Off Bearer Name Role Phone Martita Wilkerson DO Primary Care Provider Reason for Visit * Reason Onset Date Comments Advice 06/09/2024 Encounter Details Date Type Department Care Team (Late st Contact Info) Description 06/09/2024 Telephone Family Practice [facility] [address] [place] [address] Martita Wilkerson DO [address] [place] [address] Advice Allergies Active Allergy Reactions Criticality Noted Date Comments Amoxicillin 06/27/2015 Other reaction(s): yeast Cephalexin 06/27/2015 Other reaction(s): trush Ciprofloxacin 06/27/2015 Other reaction(s): trush Clotrimazole 06/27/2015 Other reaction(s): trush Doxycycline 06/27/2015 Other reaction(s): yeast infection Metronidazole 06/27/2015 Other reaction(s): trush documented as of this encounter (statuses as of 06/11/2024) Medications Diclofenac Sodium 1 % External Gel [...] as of this encounter (statuses as of 06/11/2024) Active Problems Problem Noted Date Diagnosed Date Syrinx of spinal cord 11/14/2023 Recurrent major depressive disorder 06/27/2022 Food insecurity 06/25/2022 Overview: Per [facility] Protocol Melanoma in situ of [...] as of this encounter (statuses as of 06/11/2024) Resolved Problems Problem Noted Date Diagnosed Date [...] as of this encounter (statuses as of 06/11/2024) Immunizations Name Administration Dates Next Due COVID-19 [...] 06/16/2024 2:00 PM EDT Office Visit Gastroenterology, [facility] [address] [place] [phone] Clay Zeng CRNP [address] [place] [address] 07/03/2024 7:40 AM EDT Office Visit Family Practice [facility] [address] [place] [address] Martita Wilkerson, [address] [facility] [place] [address] 07/07/2024 11:10 AM EDT Office Visit Pharmacy, [facility] 200 [facility] [place] [address] Pharmacist1, [facility] [address] [facility] [place] [address] 07/20/2024 10:30 AM EDT Office Visit Orthopaedics [facility] [address] [place] [phone] Janine Romero MD [address] [place] [phone] 09/14/2024 10:30 AM EDT Telemedicine Psychology Luis Hameed [address] [place] [address] Bree Gonzalez, [facility] [address] [place] [address] 10/16/2024 10:00 AM EDT Office Visit [facility] Surgery [facility] [address] [place] [address] Gina Coughlin MD [address] [facility] [address] Scheduled Procedures Name Priority Associated Diagnoses Date/Ti [...] this encounter Medical Devices Implanted Type Area Monogram Machine Operator Device Identifier Shelf Expiration Date Model / Serial / Lot Lead Kit Trial [id number] 50cm - [id number] - [id number] Implanted:Qty: 1 on 02/14/2023 by North Duffy DO at OR [facility] N/A: Back [employer] : PAIN MGMT 12/13/2024 [id number] / [id number] / [id number] documented as of this encounter Care Teams Planer Off Bearer Relationship Specialty Start Date End Date Martita Wilkerson DO [address] [place] [address] PCP - General Family Medicine 06/20/11 documented as of this encounter
--- OUTSIDE RECORDS SUMMARY | 2024-06-13 11:40 | External Medical Summary | Summary of Care ---
Author Name Unknown Organization [facility] Address [address] [place] [address] Phone [phone] Care Team Providers Care Rnfa Name Role Phone Martita Wilkerson DO Primary Care Provider Reason for Visit * Reason Onset Date Comments Medication Refill 06/10/2024 Encounter Details Date Type Department Care Team (Late st Contact Info) Description 06/10/2024 Refill Family Practice [facility] [address] [place] [address] Martita Wilkerson DO [address] [place] [address] Interstitial cystitis; Vaginal pain Allergies Active Allergy [...] disorder 06/27/2022 Food insecurity 06/25/2022 Overview: Per [facility] Protocol Melanoma in situ of upper extremity, right 06/13 RANDY (generalized anxiety disorder) 03/16/2021 Intractable migraine without aura and with status migrainosus 03/16/2021 Gastroesophageal reflux disease without esophagi tis 03/16/2021 RLS (restless legs syndrome) 03/16/2021 Mixed hyperlipidemia 03/16/2021 Arthritis of left knee 01/11/2017 History of basal cell carcinoma 10/28/2013 Overview (06/27/2017): 2014 BCC left nasal ala Interstitial cystitis 06/18/2013 [...] encounter Miscellaneous Notes * Telephone Encounter - Sanju Shahid [facility] - 06/11/2024 10:15 AM EDTRefused Prescriptions: Disp Refills HYDROcodone-Acetaminophen 10-325 MG Oral T*120 Ta*0 Sig: Take 1 Tablet by mouth every 6 hours as needed for Pain, Severe. Refused By: SANJU SHAHID Reason for Refusal: Duplicate Request * Telephone Encounter - Katherine Mathis, wash driller - 06/10/2024 10:07 AM EDT Did you pend patient's preferred pharmacy and medication before forwarding?yes Pharmacy: [id number] [facility] Pending Prescriptions: Disp Refills HYDROcodone-Acetaminophen 10-325 MG Oral *120 Ta*0 Sig: Take 1 Tablet by mouth every 6 hours as needed for Pain, Severe. Last Visit: 06/02/2024 (in office), 03/12/2024 (telemedicine) Next Visit: 07/03/2024 If no future appointments scheduled, and last appointment is greater than a year ago, please schedule patient for a follow-up appointment Last date the medication was ordered: 05/15/24 Is this request for a controlled substance?Yes, What was the last refill date 05/15/24 w/ quantity 120 and dosage 10-325 mg and Urine Drug Screen was completed Urine Drug Screen: Results for orders placed or performed in [...] results can be found in Results Review. Patient Phone Numbers Labs: Lab Results Component Value Date/Time CREAT 0.8 06/17/2023 12:43 PM CREAT 0.92 04/05/2023 12:00 AM CREAT 1.1 (H) 03/31/2020 07:54 AM POTASSIUM 4.4 06/17/2023 12:43 PM POTASSIUM 3.5 04/05/2023 12:00 AM POTASSIUM 4.5 03/31/2020 07:54 AM TSH 0.88 04/13/2024 10:18 AM TSH 1.37 05/10/2008 11:07 AM LDL 89 12/04/2022 01:18 PM LDL 175 (HH) 06/06/1999 08:30 AM ALT 24 03/31/2020 07:54 AM documented in this encounter Plan of Treatment Upcoming Encounters Date Type Department Care Team (Late st Contact Info) Description 06/16/2024 2:00 PM EDT Office Visit Gastroenterology, [facility] [address] [place] [phone] Clay Zeng CRNP [address] [place] [address] 07/03/2024 7:40 AM EDT Office Visit Family [facility] [place] [address] [place] [address] Martita Wilkerson DO [address] [facility] [place] [address] 07/07/2024 11:10 AM EDT Office Visit Pharmacy, [facility] [address] [place] [address] Pharmacist1, [facility] [address] [facility] [address] 07/20/2024 10:30 AM EDT Office Visit Orthopaedics [facility] [address] [place] [phone] Janine Romero MD [address] [place] [phone] 09/14/2024 10:30 AM EDT Telemedicine Psychology Jenise Kramer [facility] [address] [place] [address] Bree Gonzalez, [facility] [address] [place] [address] 10/16/2024 10:00 AM EDT Office Visit MOHS Surgery [facility] [address] [place], [place] [address] Gina Coughlin MD [address] [facility] [address] Scheduled Procedures Name Priority Associated Diagnoses Date/Ti [...] this encounter Medical Devices Implanted Type Area Legal Associate Device Identifier Shelf Expiration Date Model / Serial / Lot Lead Kit Trial [id number] - [id number] - [id number] Implanted:Qty: 1 on 02/14/2023 by [place] Duffy DO at OR [facility] N/A: Back [employer] : PAIN MGMT 12/13/2024 [id number] / [id number] / [id number] documented as of this encounter Visit Diagnoses Diagnosis Interstitial cystitis Chronic interstitial cystitis Vaginal pain Unspecified symptom associated with female genital organs documented in this encounter Care Teams Rnfa Relationship Specialty Start Date End Date Martita Wilkerson DO [address] [place] [address] PCP - General Family Medicine 06/20/11 documented as of this encounter
--- NOTE | 2024-06-13 12:43 | XRay Report ---
HISTORY: NG tube placement. TECHNIQUE: Portable AP radiographs of the chest. COMPARISON: Chest CT dated 05/02/2024. Chest radiograph dated 05/02/2024. FINDINGS: NG tube tip and sideport overlies the gastric fundus in the left upper quadrant. Spinal stimulator lead overlies the midline mid thoracic spine. No focal lung consolidation. No pneumothorax or pleural effusion. Normal heart size. Left-sided aortic arch. Midline trachea. No acute osseous abnormality. Partially included lumbar fusion hardware. Spinal stimulator generator pack is partially included overlying the right lower quadrant of the abdomen. IMPRESSION: 1. Appropriately positioned NG tube with tip and sideport overlying the gastric fundus in the left upper quadrant. 2. No acute cardiopulmonary findings. Electronically signed by Juan Carlos Segura 06-13-2024 12:42 PM
[2024-06-13] MEDS: LORazepam 2 MG/1 ML VIAL IV STA (13:09)
--- NOTE | 2024-06-13 13:30 | Surgery Consultation ---
Date of Consultation June 13, 2024 Assessment & Plan (1) SBO (small bowel obstruction): 59-year-old woman 5 weeks status post cystectomy and ileal conduit at [facility] presents with a small bowel obstruction. White blood cell count normal, not tachycardic. She has no fevers or chills. No signs of extremis. We will treat her conservatively with NG tube, IV fluids, NPO. Will continue to observe her. Urology consultation in case she needs surgery. Will continue to follow. History of Present Illness Reason for Consultation: Small bowel obstruction Requesting Physician: ED physician Attending Physician: ED physician History of Present Illness 59-year-old woman 5 weeks status post cystectomy and ileal conduit done at [facility] presents with a 1 day history of severe intermittent abdominal pain. This was accompanied with nausea and vomiting. She last had flatus and bowel movement yesterday. The ileal conduit is working and has not had decreased urine output since the symptoms started. She denies fevers and chills. CT scan demonstrates what appears to be an early small bowel obstruction. Allergies Allergy/AdvReac Type Severity Reaction Status Date / Time amoxicillin AdvReac Mild thrush, Verified 04/14/24 18:50 yeast infx cephalexin AdvReac Mild THRUSH, Verified 04/14/24 18:50 YEAST INFX ciprofloxacin AdvReac Mild THRUSH, Verified 04/14/24 18:50 YEAST INFX clotrimazole AdvReac Mild THRUSH Verified 04/14/24 18:50 doxycycline AdvReac Mild THRUSH, Verified 04/14/24 18:50 YEAST INFX metronidazole AdvReac Mild THRUSH Verified 04/14/24 18:50 Home Medications Medication Instructions Recorded Confirmed Type omeprazole 20 mg tablet,delayed 20 mg PO QAM 07/17/18 06/13/24 History release rizatriptan 10 mg tablet 10 mg PO DIRECTED PRN Migraine 07/17/18 06/13/24 History Headache rosuvastatin 10 mg tablet (Crestor) 10 mg PO QAM 06/29/20 06/13/24 History duloxetine 60 mg capsule,delayed 60 mg PO DAILY #30 caps 11/30/22 06/13/24 Rx release hydrocodone 10 mg-acetaminophen 1 tab PO Q8H PRN pain #90 tabs 10/30/23 06/13/24 Rx 325 mg tablet gabapentin 300 mg capsule 300 mg PO BID Pain #60 caps 03/04/24 06/13/24 Rx ondansetron HCl 4 mg tablet 4 mg PO Q8H 03/04/24 06/13/24 History metoclopramide HCl 10 mg tablet 10 mg PO QID PRN Nausea And 04/14/24 06/13/24 History Vomiting ropinirole 1 mg tablet 1 mg PO DAILY 04/14/24 06/13/24 History Patient History Medical History Urinary urgency Osteoarthritis Colitis GERD (gastroesophageal reflux disease) History of Mohs micrographic surgery for skin cancer nose Depression Anxiety Hyperlipidemia Surgical History History of esophagogastroduodenoscopy (EGD) History of colonoscopy History of tooth extraction History of back surgery lumbar> fusion History of hysterectomy History of appendectomy S/P hip replacement left Family History Other Hypertension Pancreatic cancer Social History Smoking Status: Current every day smoker Tobacco Type: Cigarettes Cigarettes Per Day: 8; Second Hand Exposure: No; Do You Dip or Chew Tobacco: No; Hx Alcohol Use: No Hx Substance Use: No Preferred Language: [place] Communication Ability: Effective Visual Impairment: Limited Hearing Ability: Normal Top Coater Required: No Beliefs That Will Affect Care: None marital status: Current Living Situation: Spouse and Family current occupational status: employed 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 Feels Safe at Home: Yes Childhood Exposure to Second-Hand Smoke: No Assistive Devices: None Review of Systems Review of Systems: All systems reviewed & are unremarkable except as noted in HPI & below Physical Exam Constitutional: WD/WN, vitals as above Eyes: PERRL, conjunctivae normal, anicteric sclerae Neck: trachea midline, no thyromegaly Respiratory: normal respiratory effort; no respiratory distress and no labored breathing Cardiovascular: Rate/Rhythm: regular rate and regular rhythm Gastrointestinal (Abdomen): Inspection/Auscultation: abdomen normal to inspection; abdomen not distended Percussion/Palpation: + abdomen tender ( Mild TTP in upper abdomen) and abdomen soft; no guarding and abdomen not rigid ileal conduit pink and viable, bag with urine Skin: no rashes, warm and dry Psychiatric: A+Ox3, euthymic affect Results & Data Vital Signs (Past 12 Hours) Vital Signs Temp Pulse Pulse Resp BP BP Pulse Ox 06/13/24 13:00 94 H 18 117/75 97 06/13/24 11:30 82 22 140/99 96 06/13/24 09:36 86 18 125/90 100 06/13/24 09:30 87 06/13/24 09:15 36.0 C L 113 H 26 H 103/72 98 O2 Del Method 06/13/24 13:00 Room Air 06/13/24 11:30 Room Air 06/13/24 09:36 Room Air 06/13/24 09:30 06/13/24 09:15 Room Air Laboratory Results 06/13/24 06/13/24 06/13/24 Range/Units 10:58 09:51 09:28 WBC 9.51 (4.8-10.8) K/ul RBC 4.78 (4.20-5.40) M/uL Hgb 14.7 (12.0-16.0) g/dl Hct 45.7 (37.0-47.0) % MCV 95.6 (80.0-100.0) fL MCH 30.8 (25.0-34.0) pg MCHC 32.2 (32.0-36.0) g/dL RDW Std Deviation 48.5 H (36.4-46.3) fL RDW Coeff of Shanna 13.7 (11.5-14.5) % Plt Count 365 (130-400) K/uL MPV 9.4 (9.4-12.4) fL Immature Gran % (Auto) 0.4 % Neut % (Auto) 75.2 % Lymph % (Auto) 14.4 % Norman % (Auto) 6.6 % Eos % (Auto) 2.5 % Baso % (Auto) 0.9 % Neut # (Auto) 7.14 H (1.40-6.50) K/uL Lymph # (Auto) 1.37 (1.20-3.40) K/uL Norman # (Auto) 0.63 H (0.11-0.59) K/uL Eos # (Auto) 0.24 (0.00-0.50) K/uL Baso # (Auto) 0.09 (0.00-0.20) K/uL Immature Gran # (Auto) 0.04 (0.01-0.20) K/uL Sodium 139 (136-145) mmol/L Potassium 3.9 (3.5-5.1) mmol/L Chloride 103 (98-107) mmol/L Carbon Dioxide 27 (21-32) mmol/L Anion Gap 9 (3-11) BUN 22 (6-23) mg/dl Creatinine 0.90 (0.6-1.2) mg/dl Est Cr Clr Drug Dosing Not Reportable eGFR 72.73 BUN/Creatinine Ratio 24.4 H (10-20) Glucose 112 H (70-99(Fasting)) mg/dl Lactate 1.7 (0.4-2.0) mmol/L Calcium 10.2 (8.6-10.3) mg/dl Total Bilirubin 0.5 (0.2-1.0) mg/dl AST 19 (13-39) U/L ALT 15 (7-52) U/L Alkaline Phosphatase 165 H (34-104) U/L Troponin I High Sens 7.0 (0-14) pg/ml Total Protein 8.0 (6.0-8.3) gm/dl Albumin 4.3 (3.4-5.0) gm/dl Globulin 3.7 (2.5-4.0) gm/dl Albumin/Globulin Ratio 1.2 (0.9-2) Lipase 16 (11-82) U/L Urine Color Yellow Urine Appearance Turbid A (Clear) Urine pH 8.0 H (4.5-7.5) Ur Specific Stephenson 1.022 (1.000-1.030) Urine Protein 1+ H (Negative) Urine Glucose (UA) Negative (Negative) Urine Ketones Negative (Negative) Urine Blood 1+ H (Negative) Urine Nitrite Positive A (Negative) Urine Bilirubin Negative (Negative) Urine Urobilinogen Negative (Negative) Ur Leukocyte Esterase 3+ H (Negative) Urine WBC (Auto) >50 H (0-5) /hpf Urine RBC (Auto) 3-5 H (0-2) /hpf U Hyaline Cast (Auto) 11-20 H (0-2) /lpf U Epithel Cells (Auto) 0-2 (0-2) /hpf Urine Bacteria (Auto) 4+ H (None Seen) Amorphous Sediment Present A (None Prsent) Urine Mucus Present A (None Prsent) Diagnostic Findings HISTORY: Sudden onset right sided abdominal pain. Nausea. TECHNIQUE: Helical CT imaging of the abdomen was performed following uneventful administration of 94 mL of Optiray 320 IV contrast.. Images are presented in axial, sagittal, and coronal reformats. COMPARISON: CT the abdomen pelvis with contrast dated 04/04/2024. FINDINGS: Lung Bases/Inferior Mediastinum: Unremarkable Liver: Unremarkable Gallbladder: Unremarkable Spleen: Unremarkable Adrenals: Unremarkable Pancreas: Unremarkable Kidneys: Right kidney is unremarkable. Severe left hydroureteronephrosis. The left ureter is dilated to the mid segment where it passes under loops of bowel to reach the right lower quadrantileal conduit. Mild left urothelial enhancement. Stomach/Bowel: Distal esophagus, stomach, and duodenum are unremarkable. Fluid-filledLoops of small bowel throughout the abdomen are mildly dilated with transition point in the pelvis on series 2 image 62 concerning for small bowel obstruction. The bowel distal to the site of transition is hyperemic with circumferential wall thickening. Colonic diverticulosis without evidence of acute diverticulitis. Postsurgical changes of the cecum suggesting appendectomy. Lymph nodes: Unremarkable Vasculature: No abdominal aortic aneurysm. Moderate atherosclerotic vascular disease. Pelvis: Evaluation of the pelvis is compromised by streak artifact from the left hip arthroplasty. Status post cystectomy. No significant free pelvic fluid. Soft Tissues: Ventral midline postsurgical changes. Right pelvic ileostomy for urinary diversion. Bones: Left hip arthroplasty. Mild degenerative changes of the pelvis and right hip. Lumbar spine fusion hardware. Partially included IMPRESSION: 1. Postsurgical changes of cystectomy with creation of a right lower quadrant ileal conduit and ostomy for urinary diversion. Severe left hydronephrosis with dilation of the proximal left ureter and mild urothelial enhancement. Caliber change of the left ureter as it crosses under the dilated loops of small bowel in the pelvis concerning for obstruction. No obstructing calculus. Recommend correlation with urinalysis given urothelial enhancement. 2. Small bowel obstruction with transition point in the right pelvis on series 2 images 68-64. This results in dilated fluid-filled loops of small bowel measuring up to 3 cm in diameter. Small bowel loops distal to the site of obstruction are hyperemic with mild circumferential wall thickening suggesting enteritis. 3. Colonic diverticulosis. 4. Additional chronic and/or incidental findings as above. Findings were discussed with the ordering provider Dr. Amrik Yap via telephone at 1055 AM on 06/13/2024. ACT 112: Positive. There are findings on this exam that require communication between the performing entity and the patient following Patient Test Result Information Act ([place] ACT 112) guidelines. Electronically signed by Juan Carlos Segura 06-13-2024 11:03 AM
--- NOTE | 2024-06-13 13:35 | History & Physical Report ---
Date of Service June 13, 2024 Assessment & Plan (1) SBO (small bowel obstruction): Plan #Nausea, severe abdominal pain likely 2/2 SBO #Enteritis -bowel rest, NG to suction -will give anxiolytic to help maintain NG for now, consider removal if patient is unable to tolerate. patient denies previous drug use history or issues with sedatives -GS consult -fluids -pain control -zofran #Uti likely 2/2 SBO, c/b cystectomy w/ileal conduit #Hydronephrosis L side w/potential obstruction -ED physician spoke to urology mailing section clerk, Dr Urias, who believes the patient can be cared for safely here -if clinical status deteriorates, low threshold to transfer for HLOC given complicated urologic standpoint -will start on broad spectrum, rocephin and flagyl given continuity between the urologic and gastrointestinal systems -f/u ucx #MDD #RLS #GERD #HLD -home meds IVF, NPO w/NG suction SCDs History of Present Illness Primary Care Provider: Martita Wilkerson, DO 59F pmh interstitial cystitis s/p cystectomy & ileal conduit 1 month ago, MDD, gerd, HLD, RLS, migraines who presents to the ED with nausea and severe abdominal pain since this morning. Patient states that since her cystectomy 1 month ago she has been having intermittent nausea, abdominal pain, and diarrhea. She has not had constipation or vomiting in this period. States this AM her symptoms were severe, specifica lly her abdominal pain, so she presented here. Before coming she called her surgeon's office in [place] who recommended ED visitation. She has an appointment with urology this Saturday. Since in the ED patient states her symptoms are largely controlled, though she finds the NG tube very uncomfortable. NG had drained about 300cc fluid with chunks on my evaluation, and patient asked if I could remove it. The ED physician spoke to general surgery and urology, both of whom stated the patient should be able to remain here. Patient is currently passing gas and having episodes of diarrhea. Allergies Allergy/AdvReac Type Severity Reaction Status Date / Time amoxicillin AdvReac Mild thrush, Verified 04/14/24 18:50 yeast infx cephalexin AdvReac Mild THRUSH, Verified 04/14/24 18:50 YEAST INFX ciprofloxacin AdvReac Mild THRUSH, Verified 04/14/24 18:50 YEAST INFX clotrimazole AdvReac Mild THRUSH Verified 04/14/24 18:50 doxycycline AdvReac Mild THRUSH, Verified 04/14/24 18:50 YEAST INFX metronidazole AdvReac Mild THRUSH Verified 04/14/24 18:50 Home Medications Medication Instructions Recorded Confirmed Type omeprazole 20 mg tablet,delayed 20 mg PO QAM 07/17/18 06/13/24 History release rizatriptan 10 mg tablet 10 mg PO DIRECTED PRN Migraine 07/17/18 06/13/24 History Headache rosuvastatin 10 mg tablet (Crestor) 10 mg PO QAM 06/29/20 06/13/24 History duloxetine 60 mg capsule,delayed 60 mg PO DAILY #30 caps 11/30/22 06/13/24 Rx release hydrocodone 10 mg-acetaminophen 1 tab PO Q8H PRN pain #90 tabs 10/30/23 06/13/24 Rx 325 mg tablet gabapentin 300 mg capsule 300 mg PO BID Pain #60 caps 03/04/24 06/13/24 Rx ondansetron HCl 4 mg tablet 4 mg PO Q8H 03/04/24 06/13/24 History metoclopramide HCl 10 mg tablet 10 mg PO QID PRN Nausea And 04/14/24 06/13/24 History Vomiting ropinirole 1 mg tablet 1 mg PO DAILY 04/14/24 06/13/24 History Past Med/Surg History Problem List (Updated 06/13/24 @ 13:25 by Tapan Cavazos MD) SBO (small bowel obstruction) Receiving pain medication Encounter for pre-operative examination Urinary urgency (Acute) Urinary tract infection, acute (Acute) Urinary frequency (Acute) Chronic interstitial cystitis with hematuria (Acute) Gross hematuria Nephrolithiasis Gastric ulcer (Chronic) DJD (degenerative joint disease) of hip (Chronic) Interstitial cystitis (Chronic 10/09/13) Lumbar stenosis with neurogenic claudication (Chronic) Pelvic pain (Chronic 10/09/13) Medical History Urinary urgency Osteoarthritis Colitis GERD (gastroesophageal reflux disease) History of Mohs micrographic surgery for skin cancer nose Depression Anxiety Hyperlipidemia Surgical History History of esophagogastroduodenoscopy (EGD) History of colonoscopy History of tooth extraction History of back surgery lumbar> fusion History of hysterectomy History of appendectomy S/P hip replacement left Family History Other Hypertension Pancreatic cancer Social History Smoking Status: Current every day smoker Tobacco Type: Cigarettes Cigarettes Per Day: 8; Second Hand Exposure: No; Do You Dip or Chew Tobacco: No; Hx Alcohol Use: No Hx Substance Use: No Preferred Language: Romanian Communication Ability: Effective Visual Impairment: Limited Hearing Ability: Normal Pipe Stem Repairer Required: No Beliefs That Will Affect Care: None marital status: Current Living Situation: Spouse and Family current occupational status: employed 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 Feels Safe at Home: Yes Childhood Exposure to Second-Hand Smoke: No Assistive Devices: None Review of Systems Constitutional: no fever and no chills Gastrointestinal: + abdominal pain and + nausea; no vomiti ng and no constipation Genitourinary: no dysuria and no urinary frequency Physical Exam Constitutional: WD/WN, vitals as above Gastrointestinal (Abdomen): minimally tender, specifically in the epigastrum Psychiatric: A+Ox3, euthymic affect Results & Data Results & Data Vital Signs (Past 12 Hours) Vital Signs Temp Pulse Pulse Resp BP BP Pulse Ox 06/13/24 13:00 94 H 18 117/75 97 06/13/24 11:30 82 22 140/99 96 06/13/24 09:36 86 18 125/90 100 06/13/24 09:30 87 06/13/24 09:15 36.0 C L 113 H 26 H 103/72 98 O2 Del Method 06/13/24 13:00 Room Air 06/13/24 11:30 Room Air 06/13/24 09:36 Room Air 06/13/24 09:30 06/13/24 09:15 Room Air Laboratory Results Abnormal lab results 06/13/24 06/13/24 Range/Units 09:28 10:58 RDW Std Deviation 48.5 H (36.4-46.3) fL Neut # (Auto) 7.14 H (1.40-6.50) K/uL [place] # (Auto) 0.63 H (0.11-0.59) K/uL BUN/Creatinine Ratio 24.4 H (10-20) Glucose 112 H (70-99(Fasting)) mg/dl Alkaline Phosphatase 165 H (34-104) U/L Urine Appearance Turbid A (Clear) Urine pH 8.0 H (4.5-7.5) Urine Protein 1+ H (Negative) Urine Blood 1+ H (Negative) Urine Nitrite Positive A (Negative) Ur Leukocyte Esterase 3+ H (Negative) Urine WBC (Auto) >50 H (0-5) /hpf Urine RBC (Auto) 3-5 H (0-2) /hpf U Hyaline Cast (Auto) 11-20 H (0-2) /lpf Urine Bacteria (Auto) 4+ H (None Seen) Amorphous Sediment Present A (None Prsent) Urine Mucus Present A (None Prsent) Diagnostic Findings Abdomen/Pelvis CT 06/13/24 09:39 HISTORY: Sudden onset right sided abdominal pain. Nausea. TECHNIQUE: Helical CT imaging of the abdomen was performed following uneventful administration of 94 mL of Optiray 320 IV contrast.. Images are presented in axial, sagittal, and coronal reformats. COMPARISON: CT the abdomen pelvis with contrast dated 04/04/2024. FINDINGS: Lung Bases/Inferior Mediastinum: Unremarkable Liver: Unremarkable Gallbladder: Unremarkable Spleen: Unremarkable Adrenals: Unremarkable Pancreas: Unremarkable Kidneys: Right kidney is unremarkable. Severe left hydroureteronephrosis. The left ureter is dilated to the mid segment where it passes under loops of bowel to reach the right lower quadrantileal conduit. Mild left urothelial enhancement. Stomach/Bowel: Distal esophagus, stomach, and duodenum are unremarkable. Fluid-filledLoops of small bowel throughout the abdomen are mildly dilated with transition point in the pelvis on series 2 image 62 concerning for small bowel obstruction. The bowel distal to the site of transition is hyperemic with circumferential wall thickening. Colonic diverticulosis without evidence of acute diverticulitis. Postsurgical changes of the cecum suggesting appendectomy. Lymph nodes: Unremarkable Vasculature: No abdominal aortic aneurysm. Moderate atherosclerotic vascular disease. Pelvis: Evaluation of the pelvis is compromised by streak artifact from the left hip arthroplasty. Status post cystectomy. No significant free pelvic fluid. Soft Tissues: Ventral midline postsurgical changes. Right pelvic ileostomy for urinary diversion. Bones: Left hip arthroplasty. Mild degenerative changes of the pelvis and right hip. Lumbar spine fusion hardware. Partially included IMPRESSION: 1. Postsurgical changes of cystectomy with creation of a right lower quadrant ileal conduit and ostomy for urinary diversion. Severe left hydronephrosis with dilation of the proximal left ureter and mild urothelial enhancement. Caliber change of the left ureter as it crosses under the dilated loops of small bowel in the pelvis concerning for obstruction. No obstructing calculus. Recommend correlation with urinalysis given urothelial enhancement. 2. Small bowel obstruction with transition point in the right pelvis on series 2 images 68-64. This results in dilated fluid-filled loops of small bowel measuring up to 3 cm in diameter. Small bowel loops distal to the site of obstruction are hyperemic with mild circumferential wall thickening suggesting enteritis. 3. Colonic diverticulosis. 4. Additional chronic and/or incidental findings as above. Findings were discussed with the ordering provider Dr. Amrik Yap via telephone at 1055 AM on 06/13/2024. ACT 112: Positive. There are findings on this exam that require communication between the performing entity and the patient following Patient Test Result Information Act ([place] ACT 112) guidelines. Electronically signed by Juan Carlos Segura 06-13-2024 11:03 AM Chest X-Ray 06/13/24 12:23 HISTORY: NG tube placement. TECHNIQUE: Portable AP radiographs of the chest. COMPARISON: Chest CT dated 05/02/2024. Chest radiograph dated 05/02/2024. FINDINGS: NG tube tip and sideport overlies the gastric fundus in the left upper quadrant. Spinal stimulator lead overlies the midline mid thoracic spine. No focal lung consolidation. No pneumothorax or pleural effusion. Normal heart size. Left-sided aortic arch. Midline trachea. No acute osseous abnormality. Partially included lumbar fusion hardware. Spinal stimulator generator pack is partially included overlying the right lower quadrant of the abdomen. IMPRESSION: 1. Appropriately positioned NG tube with tip and sideport overlying the gastric fundus in the left upper quadrant. 2. No acute cardiopulmonary findings. Electronically signed by Juan Carlos Segura 06-13-2024 12:42 PM
[2024-06-13] MEDS: SODIUM CHLORIDE 0.9% 1,000 ML IV SCH (14:07)
[2024-06-13] MEDS: metroNIDAZOLE 500 MG/100 ML BAG IV SCH (14:07)
[2024-06-13] MEDS: Patient's HEIGHT &/or WEIGHT Needed STA (14:09)
[2024-06-13] MEDS: HYDROmorphone INJ 1 MG/ML SYRINGE IV PRN ×2 (15:41→18:09)
[2024-06-13] MEDS: ONDANSETRON INJ 2 MG/ML 2 ML VIAL IV PRN (19:36)
[2024-06-13] MEDS: GABAPENTIN 300 MG CAP PO SCH (21:28)
[2024-06-13] MEDS: rOPINIRole HCL 1 MG TABLET PO SCH (21:28)
[2024-06-13] MEDS: MELATONIN 3 MG TAB PO PRN (21:30)
[2024-06-14 06:14] LABS: Hematocrit (blood only) 40.4 % (37.0-47.0); Hemoglobin 13.1 g/dl (12.0-16.0); Mean Corpuscular Hemoglobin 31.2 pg (25.0-34.0); Mean Corpuscular Hgb Conc 32.4 g/dL (32.0-36.0); Mean Corpuscular Volume 96.2 fL (80.0-100.0); Mean Platelet Volume 9.1 fL (9.4-12.4); Platelet Count 275 K/uL (130-400); RDW Coefficient of Variation 13.9 % (11.5-14.5); RDW Standard Deviation 49.1 fL (36.4-46.3); White Blood Count 7.56 K/ul (4.8-10.8)
[2024-06-14 06:37] LABS: Prothrombin Time 10.4 Seconds (9.0-12.0)
[2024-06-14 06:40] LABS: Albumin Globulin Ratio 1.3 (0.9-2); Albumin Level 3.5 gm/dl (3.4-5.0); BUN Creatinine Ratio 25.4 (10-20); Bilirubin,Total 0.4 mg/dl (0.2-1.0); Calcium 9.2 mg/dl (8.6-10.3); Creatinine Clr Calc Pharmacy 83.9 ml/min; Globulin 2.8 gm/dl (2.5-4.0); Potassium 5.1 mmol/L (3.5-5.1); Total Protein 6.3 gm/dl (6.0-8.3)
[2024-06-14] MEDS: cefTRIAXone SODIUM 1,000 MG/50 ML BAG IV SCH (08:18)
[2024-06-14] MEDS: DULoxetine HCL 60 MG CAP PO SCH (08:20)
[2024-06-14] MEDS: PANTOprazole 40 MG/10 ML SYR IV SCH (08:21)
[2024-06-14] MEDS: ACETAMINOPHEN 325 MG TAB PO PRN (08:21)
--- NOTE | 2024-06-14 11:04 | Surgery Progress Note ---
Date of Service June 14, 2024 Assessment & Plan (1) SBO (small bowel obstruction): Plan: 59-year-old woman 5 weeks status post cystectomy and ileal conduit at [facility] presents with a small bowel obstruction. White blood cell count normal, not tachycardic. She has no fevers or chills. No signs of extremis. We will treat her conservatively with NG tube, IV fluids, NPO. Will continue to observe her. Urology consultation in case she needs surgery. Will continue to follow. 06/14/2024 - slightly improved today. Less pain, positive small flatus. Will continue n.p.o./IV fluids for now. Will continue to monitor. Admission and Anticipated Discharge Date Admission Date: June 13, 2024 Subjective feeling better this morning. Is having some nausea but no vomiting. Pain is better. Is starting to pass a small amount of flatus. Physical Exam Gastrointestinal (Abdomen): Inspection/Auscultation: abdomen normal to inspection; abdomen not distended Percussion/Palpation: + abdomen tender ( Mild TTP in upper abdomen) and abdomen soft; no guarding and abdomen not rigid Results & Data Vital Signs (Past 12 Hours) Vital Signs Temp Pulse Resp BP Pulse Ox O2 Del Method 06/14/24 07:56 36.9 C 87 16 114/71 92 Room Air
--- NOTE | 2024-06-14 12:04 | Hospitalist Progress Note ---
Date of Service June 14, 2024 Assessment & Plan (1) SBO (small bowel obstruction): Plan: Likely secondary to adhesions with history of cystectomy and placement of ilial conduit 1 month ago Presented with nausea, severe abdominal pain and vomiting and likely has enteritis Has been on n.p.o. and NG tube was put in last night but the patient to get out Intravenous fluid and pain control and symptomatic management Appreciate surgery input and recommendation She has been feeling little better (2) Interstitial cystitis: Plan: History of interstitial cystitis and is status post cystectomy about 1 month ago with right ilial conduit he Has left hydronephrosis and may have UTI Has been on intravenous Rocephin and Flagyl and will continue for now (3) Hydronephrosis, left: Plan Progress note from the admitting physician: #Nausea, severe abdominal pain likely 2/2 SBO #Enteritis -bowel rest, NG to suction -will give anxiolytic to help maintain NG for now, consider removal if patient is unable to tolerate. patient denies previous drug use history or issues with sedatives -GS consult -fluids -pain control -zofran #Uti likely 2/2 SBO, c/b cystectomy w/ileal conduit #Hydronephrosis L side w/potential obstruction -ED physician spoke to urology national account director, Dr Urias, who believes the patient can be cared for safely here -if clinical status deteriorates, low threshold to transfer for HLOC given complicated urologic standpoint -will start on broad spectrum, rocephin and flagyl given continuity between the urologic and gastrointestinal systems -f/u ucx #MDD #RLS #GERD #HLD -home meds DVT prophylaxis SCDs Admission and Anticipated Discharge Date Admission Date: June 13, 2024 Subjective 06/14/2024 The patient was seen and examined in medical floor She has been feeling a little better and does not have any abdominal distention but is still having occasional pain She took out her NG tube last night Passing gas but bowel has not moved Review of Systems Review of Systems: All systems reviewed and are unremarkable except as noted below Physical Exam Physical Exam: Lying in bed with acute distress secondary to abdominal discomfort Constitutional: + ill appearing and average body habitus Eyes: PERRL, conjunctivae normal, anicteric sclerae ENMT: external ear and nose normal, oropharynx normal Neck: trachea midline, no thyromegaly Respiratory: no respiratory distress Auscultation: + lungs not clear to auscultation Cardiovascular: Rate/Rhythm: regular rate and regular rhythm; not tachycardic Heart Sounds: normal S1 and normal S2; no murmur Extremities: no edema Gastrointestinal (Abdomen): Inspection/Auscultation: normal bowel sounds ( decreased bowel sound); abdomen not distended Ilial conduit is working Musculoskeletal: No acute arthritis involving any of the joint Neurologic: normal touch/pain/proprioception and moves all extremities; no focal motor deficits Lymphatic: no cervical or axillary lymphadenopathy Results & Data Results & Data Vital Signs (Past 12 Hours) Vital Signs Temp Pulse Resp BP Pulse Ox O2 Del Method 06/14/24 07:56 36.9 C 87 16 114/71 92 Room Air Laboratory Results Short CBC 06/14/24 Range/Units 05:56 WBC 7.56 (4.8-10.8) K/ul Hgb 13.1 (12.0-16.0) g/dl Hct 40.4 (37.0-47.0) % Plt Count 275 (130-400) K/uL BMP 06/14/24 05:56 Sodium 140 Potassium 5.1 D Chloride 106 Carbon Dioxide 31 BUN 18 Creatinine 0.71 Glucose 91 Calcium 9.2 Liver Function 06/14/24 Range/Units 05:56 Total Bilirubin 0.4 (0.2-1.0) mg/dl AST 14 (13-39) U/L ALT 10 (7-52) U/L Alkaline Phosphatase 127 H (34-104) U/L Albumin 3.5 (3.4-5.0) gm/dl Medications Administered Current Inpatient Medications Acetaminophen (Acetaminophen 325 Mg Tab) 650 mg PO Q4H PRN PRN Reason: pain/fever Stop: 07/13/24 13:33 Last Admin: 06/14/24 08:21 Dose: 650 mg Duloxetine HCl (Duloxetine Hcl 60 Mg Cap) 60 mg PO DAILY TIFFANY Stop: 07/14/24 08:59 Last Admin: 06/14/24 08:20 Dose: 60 mg Gabapentin (Gabapentin 300 Mg Cap) 300 mg PO BID TIFFANY Stop: 07/13/24 20:59 Last Admin: 06/14/24 08:20 Dose: 300 mg Hydromorphone HCl (Hydromorphone Inj 1 Mg/Ml Syringe) 1 mg IV Q2H PRN PRN Reason: Pain Stop: 06/27/24 17:41 Last Admin: 06/14/24 08:31 Dose: 1 mg Sodium Chloride (Nss) 1,000 mls @ 150 mls/hr IV .Q6H40M TIFFANY Stop: 06/14/24 13:44 Last Admin: 06/14/24 05:35 Dose: 150 mls/hr Metronidazole (Flagyl) 500 mg in 100 mls @ 100 mls/hr IV Q8H [facility]; Protocol Stop: 06/15/24 13:59 Last Infusion: 06/14/24 07:09 Dose: Infused Ceftriaxone Sodium (Rocephin) 1,000 mg in 50 mls @ 100 mls/hr IV Q24H [facility] Stop: 06/16/24 08:59 Last Infusion: 06/14/24 08:51 Dose: Infused Pantoprazole Sodium (Protonix) 40 mg in 10 mls @ 5 mls/min IV DAILY [facility] Stop: 07/14/24 08:59 Last Admin: 06/14/24 08:21 Dose: 5 mls/min Melatonin (Melatonin 3 Mg Tab) 3 mg PO HS PRN PRN Reason: Insomnia Stop: 07/13/24 13:33 Last Admin: 06/13/24 21:30 Dose: 3 mg Ondansetron HCl (Ondansetron Inj 2 Mg/Ml 2 Ml Vial) 4 mg IV Q6H PRN PRN Reason: Nausea/vomiting Stop: 07/13/24 13:33 Last Admin: 06/14/24 08:31 Dose: 4 mg Ropinirole HCl (Ropinirole Hcl 1 Mg Tablet) 1 mg PO HS TIFFANY Stop: 07/14/24 20:59
[2024-06-14] MEDS: SODIUM CHLORIDE 0.9% 1,000 ML IV SCH (14:37)
[2024-06-14] MEDS: rOPINIRole HCL 1 MG TABLET PO SCH (21:02)
[2024-06-15 07:48] LABS: Basophils # (auto) 0.03 K/uL (0.00-0.20); Basophils % (auto) 0.5 %; Eosinophils # (auto) 0.05 K/uL (0.00-0.50); Eosinophils % (auto) 0.8 %; Hematocrit (blood only) 35.4 % (37.0-47.0); Hemoglobin 11.5 g/dl (12.0-16.0); Immature Granulocytes # (auto) 0.01 K/uL (0.01-0.20); Immature Granulocytes % (auto) 0.2 %; Lymphocytes # (auto) 0.88 K/uL (1.20-3.40); Lymphocytes % (auto) 14.9 %; Mean Corpuscular Hemoglobin 31.4 pg (25.0-34.0); Mean Corpuscular Hgb Conc 32.5 g/dL (32.0-36.0); Mean Corpuscular Volume 96.7 fL (80.0-100.0); Mean Platelet Volume 9.2 fL (9.4-12.4); Monocytes # (auto) 0.34 K/uL (0.11-0.59); Monocytes % (auto) 5.8 %; Neutrophils % (auto) 77.8 %; Platelet Count 249 K/uL (130-400); RDW Coefficient of Variation 13.6 % (11.5-14.5); RDW Standard Deviation 48.7 fL (36.4-46.3); Red Blood Count 3.66 M/uL (4.20-5.40); White Blood Count 5.91 K/ul (4.8-10.8)
[2024-06-15 07:57] LABS: BUN Creatinine Ratio 16.4 (10-20); Calcium 8.4 mg/dl (8.6-10.3); Creatinine Clr Calc Pharmacy 97.7 ml/min; Magnesium 1.8 mg/dl (1.7-2.4); Phosphorus 3.5 mg/dl (2.5-4.9); Potassium 4.2 mmol/L (3.5-5.1)
--- NOTE | 2024-06-15 08:57 | Surgery Progress Note ---
Date of Service June 15, 2024 Assessment & Plan (1) SBO (small bowel obstruction): Plan: 59-year-old woman 5 weeks status post cystectomy and ileal conduit at [facility] presents with a small bowel obstruction. 06/15/2024 - avss + bowel movement no n,v Plan: advance to full liquids encouraged ambulation continue medical management Dr. Cain has seen and examined pt, agrees with above Admission and Anticipated Discharge Date Admission Date: June 13, 2024 Subjective feeling better today no abdominal pain had a bowel movement this morning no n,v hungry wants food Physical Exam Constitutional: WD/WN, vitals as above cooperative and comfortable; no acute distress and not ill appearing Respiratory: normal respiratory effort Gastrointestinal (Abdomen): Inspection/Auscultation: abdomen normal to inspection and + abdomen distended (mild) Percussion/Palpation: abdomen soft; abdomen nontender, no guarding and abdomen not rigid Ileal conduit urostomy with clear yellow urine Skin: no rashes, warm and dry Psychiatric: Orientation: alert and oriented x 3 Results & Data Vital Signs (Past 12 Hours) Vital Signs Temp Pulse Resp BP Pulse Ox O2 Del Method 06/14/24 21:00 Room Air 06/14/24 21:00 36.8 C 87 17 115/73 95 Room Air Laboratory Results 06/15/24 Range/Units 06:59 WBC 5.91 (4.8-10.8) K/ul RBC 3.66 L (4.20-5.40) M/uL Hgb 11.5 L (12.0-16.0) g/dl Hct 35.4 L (37.0-47.0) % MCV 96.7 (80.0-100.0) fL MCH 31.4 (25.0-34.0) pg MCHC 32.5 (32.0-36.0) g/dL RDW Std Deviation 48.7 H (36.4-46.3) fL RDW Coeff of Shanna 13.6 (11.5-14.5) % Plt Count 249 (130-400) K/uL MPV 9.2 L (9.4-12.4) fL Immature Gran % (Auto) 0.2 % Neut % (Auto) 77.8 % Lymph % (Auto) 14.9 % [place] % (Auto) 5.8 % Eos % (Auto) 0.8 % Baso % (Auto) 0.5 % Neut # (Auto) 4.60 (1.40-6.50) K/uL Lymph # (Auto) 0.88 L (1.20-3.40) K/uL [place] # (Auto) 0.34 (0.11-0.59) K/uL Eos # (Auto) 0.05 (0.00-0.50) K/uL Baso # (Auto) 0.03 (0.00-0.20) K/uL Immature Gran # (Auto) 0.01 (0.01-0.20) K/uL Sodium 138 (136-145) mmol/L Potassium 4.2 (3.5-5.1) mmol/L Chloride 106 (98-107) mmol/L Carbon Dioxide 27 (21-32) mmol/L Anion Gap 5 (3-11) BUN 10 (6-23) mg/dl Creatinine 0.61 (0.6-1.2) mg/dl Est Cr Clr Drug Dosing 97.7 ml/min eGFR 101.65 BUN/Creatinine Ratio 16.4 (10-20) Glucose 54 L (70-99(Fasting)) mg/dl Calcium 8.4 L (8.6-10.3) mg/dl Phosphorus 3.5 (2.5-4.9) mg/dl Magnesium 1.8 (1.7-2.4) mg/dl
--- NOTE | 2024-06-15 16:08 | Hospitalist Progress Note ---
Date of Service June 15, 2024 Assessment & Plan (1) SBO (small bowel obstruction): Plan: Likely secondary to adhesions with history of cystectomy and placement of ilial conduit 1 month ago Presented with nausea, severe abdominal pain and vomiting and likely has enteritis Has been on n.p.o. and NG tube was put in last night but the patient to get out Intravenous fluid and pain control and symptomatic management Appreciate surgery input and recommendation She has been feeling little better No abdominal distention but has minimal pain Bowel is moved Started on full liquid, IV fluid rate has been decreased and advised to ambulate Likely discharge tomorrow following advance diet and toleration (2) Interstitial cystitis: Plan: History of interstitial cystitis and is status post cystectomy about 1 month ago with right ilial conduit he Has left hydronephrosis and may have UTI Has been on intravenous Rocephin and Flagyl and will continue for now Likely to have oral antibiotic to continue and finish the course for about 10 days on discharge (3) Hydronephrosis, left: Plan Progress note from the admitting physician: #Nausea, severe abdominal pain likely 2/2 SBO #Enteritis -bowel rest, NG to suction -will give anxiolytic to help maintain NG for now, consider removal if patient is unable to tolerate. patient denies previous drug use history or issues with sedatives -GS consult -fluids -pain control -zofran #Uti likely 2/2 SBO, c/b cystectomy w/ileal conduit #Hydronephrosis L side w/potential obstruction -ED physician spoke to urology commissions specialist, Dr Urias, who believes the patient can be cared for safely here -if clinical status deteriorates, low threshold to transfer for HLOC given complicated urologic standpoint -will start on broad spectrum, rocephin and flagyl given continuity between the urologic and gastrointestinal systems -f/u ucx #MDD #RLS #GERD #HLD -home meds DVT prophylaxis SCDs Admission and Anticipated Discharge Date Admission Date: June 13, 2024 Subjective 06/14/2024 The patient was seen and examined in medical floor She has been feeling a little better and does not have any abdominal distention but is still having occasional pain She took out her NG tube last night Passing gas but bowel has not moved 06/15/2024 The patient was seen and examined in medical floor She has been feeling a lot better still has pain in the abdomen without any significant distention Bowel is moved Full liquid diet has been restarted Review of Systems Review of Systems: All systems reviewed and are unremarkable except as noted below Constitutional: no fever and no chills Gastrointestinal: + abdominal pain and + nausea; no vomiti ng and no constipation Genitourinary: no dysuria and no urinary frequency Physical Exam Physical Exam: Lying in bed with acute distress secondary to abdominal discomfort Constitutional: + ill appearing and average body habitus Eyes: PERRL, conjunctivae normal, anicteric sclerae ENMT: external ear and nose normal, oropharynx normal Neck: trachea midline, no thyromegaly Respiratory: no respiratory distress Auscultation: + lungs not clear to auscultation Cardiovascular: Rate/Rhythm: regular rate and regular rhythm; not tachycardic Heart Sounds: normal S1 and normal S2; no murmur Extremities: no edema Gastrointestinal (Abdomen): Inspection/Auscultation: normal bowel sounds ( decreased bowel sound); abdomen not distended Neurologic: normal touch/pain/proprioception and moves all extremities; no focal motor deficits Lymphatic: no cervical or axillary lymphadenopathy Results & Data Results & Data Vital Signs (Past 12 Hours) Vital Signs Temp Pulse Resp BP Pulse Ox O2 Del Method 06/15/24 09:05 37.0 C 78 18 123/81 94 Room Air Laboratory Results Short CBC 06/15/24 Range/Units 06:59 WBC 5.91 (4.8-10.8) K/ul Hgb 11.5 L (12.0-16.0) g/dl Hct 35.4 L (37.0-47.0) % Plt Count 249 (130-400) K/uL BMP 06/15/24 06:59 Sodium 138 Potassium 4.2 Chloride 106 Carbon Dioxide 27 BUN 10 Creatinine 0.61 Glucose 54 L Calcium 8.4 L Medications Administered Current Inpatient Medications Acetaminophen (Acetaminophen 325 Mg Tab) 650 mg PO Q4H PRN PRN Reason: pain/fever Stop: 07/13/24 13:33 Last Admin: 06/14/24 08:21 Dose: 650 mg Duloxetine HCl (Duloxetine Hcl 60 Mg Cap) 60 mg PO DAILY [facility] Stop: 07/14/24 08:59 Last Admin: 06/15/24 08:58 Dose: 60 mg Gabapentin (Gabapentin 300 Mg Cap) 300 mg PO BID [facility] Stop: 07/13/24 20:59 Last Admin: 06/15/24 08:58 Dose: 300 mg Hydromorphone HCl (Hydromorphone Inj 1 Mg/Ml Syringe) 0.5 mg IV Q2H PRN PRN Reason: Pain Stop: 06/27/24 17:41 Ceftriaxone Sodium (Rocephin) 1,000 mg in 50 mls @ 100 mls/hr IV Q24H TIFFANY Stop: 06/16/24 08:59 Last Infusion: 06/15/24 09:57 Dose: Infused Pantoprazole Sodium (Protonix) 40 mg in 10 mls @ 5 mls/min IV DAILY TIFFANY Stop: 07/14/24 08:59 Last Admin: 06/15/24 09:01 Dose: 5 mls/min Melatonin (Melatonin 3 Mg Tab) 3 mg PO HS PRN PRN Reason: Insomnia Stop: 07/13/24 13:33 Last Admin: 06/14/24 21:02 Dose: 3 mg Ondansetron HCl (Ondansetron Inj 2 Mg/Ml 2 Ml Vial) 4 mg IV Q6H PRN PRN Reason: Nausea/vomiting Stop: 07/13/24 13:33 Last Admin: 06/14/24 08:31 Dose: 4 mg Ropinirole HCl (Ropinirole Hcl 1 Mg Tablet) 1 mg PO HS TIFFANY Stop: 07/14/24 20:59 Last Admin: 06/14/24 21:02 Dose: 1 mg
[2024-06-15] MEDS: HYDROmorphone INJ 1 MG/ML SYRINGE IV PRN (17:28)
[2024-06-16] MEDS: RIZATRIPTAN BENZOATE 10 MG TAB PO STA (02:20)
[2024-06-16 07:19] LABS: Basophils # (auto) 0.04 K/uL (0.00-0.20); Basophils % (auto) 0.8 %; Eosinophils # (auto) 0.22 K/uL (0.00-0.50); Eosinophils % (auto) 4.2 %; Hematocrit (blood only) 38.5 % (37.0-47.0); Hemoglobin 12.6 g/dl (12.0-16.0); Immature Granulocytes # (auto) 0.02 K/uL (0.01-0.20); Immature Granulocytes % (auto) 0.4 %; Lymphocytes # (auto) 1.06 K/uL (1.20-3.40); Mean Corpuscular Hemoglobin 31.1 pg (25.0-34.0); Mean Corpuscular Hgb Conc 32.7 g/dL (32.0-36.0); Mean Corpuscular Volume 95.1 fL (80.0-100.0); Mean Platelet Volume 9.1 fL (9.4-12.4); Monocytes # (auto) 0.36 K/uL (0.11-0.59); Monocytes % (auto) 6.8 %; Neutrophils % (auto) 67.8 %; Platelet Count 254 K/uL (130-400); RDW Coefficient of Variation 13.3 % (11.5-14.5); RDW Standard Deviation 46.6 fL (36.4-46.3); Red Blood Count 4.05 M/uL (4.20-5.40)
[2024-06-16 07:49] LABS: BUN Creatinine Ratio 10.3 (10-20); Calcium 8.8 mg/dl (8.6-10.3); Creatinine Clr Calc Pharmacy 102.8 ml/min; Magnesium 1.8 mg/dl (1.7-2.4); Phosphorus 3.3 mg/dl (2.5-4.9); Potassium 3.8 mmol/L (3.5-5.1)
[2024-06-16] MEDS ORDERED: GLUCOSE 40% GEL 15 GM TUBE PO PRN (08:32)
[2024-06-16] MEDS ORDERED: GLUCOSE 10 TAB/TUBE PO PRN (08:32)
[2024-06-16] MEDS ORDERED: GLUCAGON FOR INJ 1 MG VIAL SQ PRN (08:32)
[2024-06-16] MEDS ORDERED: DEXTROSE 50% 50 ML SYRINGE IV PRN (08:32)
--- NOTE | 2024-06-16 08:54 | Surgery Progress Note ---
<Statement entered by Ulisses Durand DO - 06/16/24 11:25> I have seen and examined this patient for the first time this am as she was previously evaluated by the previously covering surgical service. Today she expressed some pain as well as has some TTP with contour change/firmness at the area of tenderness. Concerned there is a loop of bowel that may still be with distention since diet advancement. Will hold off on progressing past full liquids today. She needs to be up out of bed to ambulate aggressively if medically and neurologically stable enough to do so without risk of injury. If she would be deemed a fall risk, she should be ambulated with appropriate assistance. OOB to chair as well for a period while not ambulating. Date of Service June 16, 2024 Assessment & Plan (1) SBO (small bowel obstruction): Plan (1) SBO (small bowel obstruction): 59-year-old woman 5 weeks status post cystectomy and ileal conduit at [facility] presents with a small bowel obstruction. + bowel movement + passing flatus minimal nausea, no vomiting She is mill tender to palpation and has abdominal pain, plan to keep on liquid diet until signs of improvement. Continue to encourage ambulation and continue medical management Admission and Anticipated Discharge Date Admission Date: June 13, 2024 Subjective 59-year-old woman 5 weeks status post cystectomy and ileal conduit at [facility] presents with a small bowel obstruction. This morning she is feeling well and rates her abdominal pain at about a 3/10, and 'much better than admission.' Mild nausea but no vomiting. She is passing flatulence and had two BMs yesterday. Her blood sugar was low this morning (43), and she is very hungry, and would like to eat. Endorses a 'migraine' headache overnight, but no dizziness/confusion. Denies changes in urinary habits. Review of Systems Review of Systems: All systems reviewed and are unremarkable except as noted in HPI Physical Exam Constitutional: WD/WN, vitals as above no acute distress Respiratory: normal respiratory effort; no labored breathing Gastrointestinal (Abdomen): Inspection/Auscultation: + abdomen distended and normal bowel sounds Percussion/Palpation: + abdomen tender and + abdomen firm (noted in her LUQ) Psychiatric: A+Ox3, euthymic affect Results & Data Vital Signs (Past 12 Hours) Vital Signs Temp Pulse Resp BP Pulse Ox O2 Del Method 06/16/24 07:22 36.6 C 82 14 125/74 91 Room Air 06/15/24 20:54 36.7 C 78 18 119/78 92 Room Air
[2024-06-16] MEDS: CARBOHYDRATES FOR HYPOGLYCEMIA PO PRN (11:34)
--- NOTE | 2024-06-16 16:56 | Hospitalist Progress Note ---
Date of Service June 16, 2024 Assessment & Plan (1) SBO (small bowel obstruction): Plan: Small bowel obstruction Likely secondary to adhesions S/P post cystectomy and ileal conduit at [facility] 1 month ago Left hydroureteronephrosis--POA likely due to above --CT ABD:Postsurgical changes of cystectomy with creation of a right lower quadrant ileal conduit and ostomy for urinary diversion. Severe left hydronephrosis with dilation of the proximal left ureter and mild urothelial enhancement. Caliber change of the left ureter as it crosses under the dilated loops of small bowel in the pelvis concerning for obstruction. No obstructing ca lculus. Recommend correlation with urinalysis given urothelial enhancement. Small bowel obstruction with transition point in the right pelvis on series 2 images 68-64. This results in dilated fluid-filled loops of small bowel measuring up to 3 cm in diameter. Small bowel loops distal to the site of obstruction are hyperemic with mild circumferential wall thickening suggesting enteritis. Colonic diverticulosis. -Appreciate surgery input Pain control Encouraged to ambulate Received IV fluids Liquid diet for now Minimize narcotics as able (2) Interstitial cystitis: Plan: History of interstitial cystitis and is status post cystectomy about 1 month ago with right ilial conduit he Has left hydronephrosis and may have UTI Urine culture noncontributory Empirically received Rocephin, Flagyl May need to follow-up with urology as outpatient with repeat imaging (3) Hydronephrosis, left: Plan Other chronic conditions: MDD RLS GERD HLD Continue home medications as able DVT Px: SCDs CODE STATUS Full code Admission and Anticipated Discharge Date Admission Date: June 13, 2024 Subjective Patient is seen and examined at bedside States having abdominal pain + Flatus, no bowel movement past 2 days Tolerating liquid diet No other complaints Review of Systems Review of Systems: All systems reviewed & are unremarkable except as noted in Subjective Physical Exam Physical Exam: Physical Exam: Vitals signs as noted above General Appearance:Moderately built and nourished, no apparent distress Head: normocephalic, Atraumatic Eyes: normal inspection, EOMI Neck: supple, Trachea midline Respiratory/Chest: Normal breath sounds, CTA, No accessory muscle use Cardiovascular: S1, S2, No murmur Abdomen/GI:Soft, + ostomy, mild tender, Bowel sounds present Extremities/Musculoskeletal:normal inspection, no edema Neurologic/Psych:AAOX3, grossly no focal neurological deficits Skin: normal color, warm Results & Data Results & Data Vital Signs (Past 12 Hours) Vital Signs Temp Pulse Resp BP BP Pulse Ox O2 Del Method 06/16/24 14:39 36.8 C 86 16 129/81 93 Room Air 06/16/24 07:22 36.6 C 82 14 125/74 91 Room Air Laboratory Results Short CBC 06/16/24 Range/Units 06:46 WBC 5.30 (4.8-10.8) K/ul Hgb 12.6 (12.0-16.0) g/dl Hct 38.5 (37.0-47.0) % Plt Count 254 (130-400) K/uL BMP 06/16/24 06:46 Sodium 139 Potassium 3.8 Chloride 102 Carbon Dioxide 29 BUN 6 Creatinine 0.58 L Glucose 43 L* Calcium 8.8
--- NOTE | 2024-06-17 06:46 | Surgery Progress Note ---
Date of Service June 17, 2024 Assessment & Plan (1) SBO (small bowel obstruction): Plan (1) SBO (small bowel obstruction): 59-year-old woman 5 weeks status post cystectomy and ileal conduit at [facility] presents with a small bowel obstruction. Last BM was night of 06/15 + passing flatus minimal nausea, no vomiting pain decreasing She her pain is decreased since her admission, but she is paper machine tender to palpation. Recommendation to ease into a low fiber diet, advised mix of liquids and soft foods. Plan to follow up with [facility] clinicians to discuss possible post cystectomy related pain. If medicine signs off, she is cleared for discharge from a surgical standpoint. Admission and Anticipated Discharge Date Admission Date: June 13, 2024 Subjective Patient is seen and examined at bedside Abdominal pain constant from the pervious day, perhaps a little better. Mild nausea today. + Flatus, no bowel movement past 2 days Tolerating full liquid diet, has an appetite. Ambulating well No other complaints Review of Systems Review of Systems: All systems reviewed and are unremarkable except as noted in HPI Physical Exam Constitutional: WD/WN, vitals as above no acute distress Respiratory: normal respiratory effort; no labored breathing Gastrointestinal (Abdomen): Percussion/Palpation: + abdomen tender and + abdomen firm (localized in her LUQ) Psychiatric: A+Ox3, euthymic affect Results & Data Vital Signs (Past 12 Hours) Vital Signs Temp Pulse Resp BP Pulse Ox O2 Del Method 06/16/24 22:34 37 C 85 16 135/76 91 Room Air PG Care Time/CCT Total # of Minutes Spent Total Time Spent with Patient: Total time spent is greater than 50% in coordination of care (as documented) at patient's floor/unit and/or counseling patient: Coding Level of Care Code 05682 SUB INP/OBS CARE 04/11MIN Diagnoses SBO (small bowel obstruction) K56.609
--- NOTE | 2024-06-17 09:38 | XRay Report ---
KUB HISTORY: Acute onset abdominal pain with obstruction sbo COMPARISON: CT 06/13/2024 FINDINGS: Air-filled loops of large and small bowel. Small bowel loops measure up to approximately 3. 2 cm. Surgical suture material noted within the pelvis. A spinal stimulator device is noted. Lumbar s marta fusion hardware. Left hip arthroplasty. No renal calculi. No ureteral calculi. No pneumoperito neum or pneumatosis. No fracture. IMPRESSION: Persistent small bowel obstruction. Continued follow-up is needed. ACT 112: Negative or not required by law. The above report was generated using voice recognition software. It may contain grammatical, syntax o r spelling errors. Electronically signed by: Alexi Epps M.D. 06/17/2024 9:37 AM
[2024-06-17 11:57] VITALS: TEMP 99
[2024-06-17 14:07] VITALS: BP 131/85; PULSE 88; RESP 20; O2SAT 95
--- NOTE | 2024-06-17 14:08 | Hospitalist Progress Note ---
Date of Service June 17, 2024 Assessment & Plan (1) SBO (small bowel obstruction): Plan: Small bowel obstruction Likely secondary to adhesions S/P post cystectomy and ileal conduit at [facility] 1 month ago Left hydroureteronephrosis--POA likely due to above --CT ABD:Postsurgical changes of cystectomy with creation of a right lower quadrant ileal conduit and ostomy for urinary diversion. Severe left hydronephrosis with dilation of the proximal left ureter and mild urothelial enhancement. Caliber change of the left ureter as it crosses under the dilated loops of small bowel in the pelvis concerning for obstruction. No obstructing ca lculus. Recommend correlation with urinalysis given urothelial enhancement. Small bowel obstruction with transition point in the right pelvis on series 2 images 68-64. This results in dilated fluid-filled loops of small bowel measuring up to 3 cm in diameter. Small bowel loops distal to the site of obstruction are hyperemic with mild circumferential wall thickening suggesting enteritis. Colonic diverticulosis. -Appreciate surgery input: Advised to discharge home today if tolerates low fiber diet Pain control Encouraged to ambulate Received IV fluids Tolerating low fiber diet Minimize narcotics as able Plan to discharge home today (2) Interstitial cystitis: Plan: History of interstitial cystitis and is status post cystectomy about 1 month ago with right ilial conduit he Has left hydronephrosis and may have UTI Urine culture noncontributory Empirically received Rocephin, Flagyl Advised to follow-up with urology as outpatient with repeat imaging patient understands and agrees with the plan. (3) Hydronephrosis, left: Plan Other chronic conditions: MDD RLS GERD HLD Continue home medications as able DVT Px: SCDs CODE STATUS Full code Disposition Home Admission and Anticipated Discharge Date Admission Date: June 13, 2024 Subjective Patient is seen and examined at bedside Had bowel movement today Tolerated low fiber diet Abdominal pain much improved Denies any nausea, vomiting Also denies any chest pain, dyspnea Plan to be discharged home today Discussed with cardiology today Review of Systems Review of Systems: All systems reviewed & are unremarkable except as noted in Subjective Physical Exam Physical Exam: Physical Exam: Vitals signs as noted above General Appearance:Moderately built and nourished, no apparent distress Head: normocephalic, Atraumatic Eyes: normal inspection, EOMI Neck: supple, Trachea midline Respiratory/Chest: Normal breath sounds, CTA, No accessory muscle use Cardiovascular: S1, S2, No murmur Abdomen/GI:Soft, + ostomy, non tender, Bowel sounds present Extremities/Musculoskeletal:normal inspection, no edema Neurologic/Psych:AAOX3, grossly no focal neurological deficits Skin: normal color, warm Results & Data Results & Data Vital Signs (Past 12 Hours) Vital Signs Temp Pulse Pulse Resp BP BP Pulse Ox 06/17/24 11:53 37.2 C 85 12 122/57 L 93 06/17/24 10:00 37 C 89 20 136/83 96 06/17/24 07:47 37.4 C 74 10 L 146/98 H 93 O2 Del Method 06/17/24 11:53 Room Air 06/17/24 10:00 Room Air 06/17/24 07:47 Room Air
--- NOTE | 2024-06-17 14:25 | Discharge Summary ---
Date of Service June 17, 2024 Admission HPI Per Admitting Provider 59F pmh interstitial cystitis s/p cystectomy & ileal conduit 1 month ago, MDD, gerd, HLD, RLS, migraines who presents to the ED with nausea and severe abdominal pain since this morning. Patient states that since her cystectomy 1 month ago she has been having intermittent nausea, abdominal pain, and diarrhea. She has not had constipation or vomiting in this period. States this AM her symptoms were severe, specificall y her abdominal pain, so she presented here. Before coming she called her surgeon's office in [place] who recommended ED visitation. She has an appointment with urology this Saturday. Since in the ED patient states her symptoms are largely controlled, though she finds the NG tube very uncomfortable. NG had drained about 300cc fluid with chunks on my evaluation, and patient asked if I could remove it. The ED physician spoke to general surgery and urology, both of whom stated the patient should be able to remain here. Patient is currently passing gas and having episodes of diarrhea. Admission Exam Per Admitting Provider Constitutional: WD/WN, vitals as above Gastrointestinal (Abdomen): minimally tender, specifically in the epigastrum Psychiatric: A+Ox3, euthymic affect Principal Diagnosis Small bowel obstruction Left hydroureteronephrosis H/O interstitial cystitis Discharge Data Allergies Allergy/AdvReac Type Severity Reaction Status Date / Time amoxicillin AdvReac Mild thrush, Verified 04/14/24 18:50 yeast infx cephalexin AdvReac Mild THRUSH, Verified 04/14/24 18:50 YEAST INFX ciprofloxacin AdvReac Mild THRUSH, Verified 04/14/24 18:50 YEAST INFX clotrimazole AdvReac Mild THRUSH Verified 04/14/24 18:50 doxycycline AdvReac Mild THRUSH, Verified 04/14/24 18:50 YEAST INFX metronidazole AdvReac Mild THRUSH Verified 04/14/24 18:50 Consultations 06/13/24 12:37 ED Decision to Admit Stat 06/13/24 13:34 Consult General Surgery Routine Procedures Performed Laboratory Results WBC 5.30 K/ul (4.8-10.8) 06/16/24 06:46 RBC 4.05 M/uL (4.20-5.40) L 06/16/24 06:46 Hgb 12.6 g/dl (12.0-16.0) 06/16/24 06:46 Hct 38.5 % (37.0-47.0) 06/16/24 06:46 MCV 95.1 fL (80.0-100.0) 06/16/24 06:46 MCH 31.1 pg (25.0-34.0) 06/16/24 06:46 MCHC 32.7 g/dL (32.0-36.0) 06/16/24 06:46 RDW Std Deviation 46.6 fL (36.4-46.3) H 06/16/24 06:46 RDW Coeff of Shanna 13.3 % (11.5-14.5) 06/16/24 06:46 Plt Count 254 K/uL (130-400) 06/16/24 06:46 MPV 9.1 fL (9.4-12.4) L 06/16/24 06:46 Immature Gran % (Auto) 0.4 % 06/16/24 06:46 Neut % (Auto) 67.8 % 06/16/24 06:46 Lymph % (Auto) 20.0 % 06/16/24 06:46 [place] % (Auto) 6.8 % 06/16/24 06:46 Eos % (Auto) 4.2 % 06/16/24 06:46 Baso % (Auto) 0.8 % 06/16/24 06:46 Neut # (Auto) 3.60 K/uL (1.40-6.50) 06/16/24 06:46 Lymph # (Auto) 1.06 K/uL (1.20-3.40) L 06/16/24 06:46 [place] # (Auto) 0.36 K/uL (0.11-0.59) 06/16/24 06:46 Eos # (Auto) 0.22 K/uL (0.00-0.50) 06/16/24 06:46 Baso # (Auto) 0.04 K/uL (0.00-0.20) 06/16/24 06:46 Immature Gran # (Auto) 0.02 K/uL (0.01-0.20) 06/16/24 06:46 ESR 41 mm/hr (0-30) H 06/14/24 05:56 PT 10.4 Seconds (9.0-12.0) 06/14/24 05:56 INR 1.0 (0.9-1.1) 06/14/24 05:56 Sodium 139 mmol/L (136-145) 06/16/24 06:46 Potassium 3.8 mmol/L (3.5-5.1) 06/16/24 06:46 Chloride 102 mmol/L (98-107) 06/16/24 06:46 Carbon Dioxide 29 mmol/L (21-32) 06/16/24 06:46 Anion Gap 8 (3-11) 06/16/24 06:46 BUN 6 mg/dl (6-23) 06/16/24 06:46 Creatinine 0.58 mg/dl (0.6-1.2) L 06/16/24 06:46 Est Cr Clr Drug Dosing 102.8 ml/min 06/16/24 06:46 eGFR 102.89 06/16/24 06:46 BUN/Creatinine Ratio 10.3 (10-20) 06/16/24 06:46 Glucose 43 mg/dl (70-99(Fasting)) L* 06/16/24 06:46 POC Glucose 82 mg/dl (70-99) 06/17/24 11:43 Lactate 1.7 mmol/L (0.4-2.0) 06/13/24 09:51 Calcium 8.8 mg/dl (8.6-10.3) 06/16/24 06:46 Phosphorus 3.3 mg/dl (2.5-4.9) 06/16/24 06:46 Magnesium 1.8 mg/dl (1.7-2.4) 06/16/24 06:46 Total Bilirubin 0.4 mg/dl (0.2-1.0) 06/14/24 05:56 AST 14 U/L (13-39) 06/14/24 05:56 ALT 10 U/L (7-52) 06/14/24 05:56 Alkaline Phosphatase 127 U/L (34-104) H 06/14/24 05:56 Troponin I High Sens 7.0 pg/ml (0-14) 06/13/24 09:28 Total Protein 6.3 gm/dl (6.0-8.3) D 06/14/24 05:56 Albumin 3.5 gm/dl (3.4-5.0) 06/14/24 05:56 Globulin 2.8 gm/dl (2.5-4.0) 06/14/24 05:56 Albumin/Globulin Ratio 1.3 (0.9-2) 06/14/24 05:56 Lipase 16 U/L (11-82) 06/13/24 09:28 Urine Color Yellow 06/13/24 10:58 Urine Appearance Turbid (Clear) A 06/13/24 10:58 Urine pH 8.0 (4.5-7.5) H 06/13/24 10:58 Ur Specific [place] 1.022 (1.000-1.030) 06/13/24 10:58 Urine Protein 1+ (Negative) H 06/13/24 10:58 Urine Glucose (UA) Negative (Negative) 06/13/24 10:58 Urine Ketones Negative (Negative) 06/13/24 10:58 Urine Blood 1+ (Negative) H 06/13/24 10:58 Urine Nitrite Positive (Negative) A 06/13/24 10:58 Urine Bilirubin Negative (Negative) 06/13/24 10:58 Urine Urobilinogen Negative (Negative) 06/13/24 10:58 Ur Leukocyte Esterase 3+ (Negative) H 06/13/24 10:58 Urine WBC (Auto) >50 /hpf (0-5) H 06/13/24 10:58 Urine RBC (Auto) 3-5 /hpf (0-2) H 06/13/24 10:58 U Hyaline Cast (Auto) 11-20 /lpf (0-2) H 06/13/24 10:58 U Epithel Cells (Auto) 0-2 /hpf (0-2) 06/13/24 10:58 Urine Bacteria (Auto) 4+ (None Seen) H 06/13/24 10:58 Amorphous Sediment Present (None Prsent) A 06/13/24 10:58 Urine Mucus Present (None Prsent) A 06/13/24 10:58 Impressions Abdomen/Pelvis CT 06/13/24 09:39 HISTORY: Sudden onset right sided abdominal pain. Nausea. TECHNIQUE: Helical CT imaging of the abdomen was performed following uneventful administration of 94 mL of Optiray 320 IV contrast.. Images are presented in axial, sagittal, and coronal reformats. COMPARISON: CT the abdomen pelvis with contrast dated 04/04/2024. FINDINGS: Lung Bases/Inferior Mediastinum: Unremarkable Liver: Unremarkable Gallbladder: Unremarkable Spleen: Unremarkable Adrenals: Unremarkable Pancreas: Unremarkable Kidneys: Right kidney is unremarkable. Severe left hydroureteronephrosis. The left ureter is dilated to the mid segment where it passes under loops of bowel to reach the right lower quadrantileal conduit. Mild left urothelial enhancement. Stomach/Bowel: Distal esophagus, stomach, and duodenum are unremarkable. Fluid-filledLoops of small bowel throughout the abdomen are mildly dilated with transition point in the pelvis on series 2 image 62 concerning for small bowel obstruction. The bowel distal to the site of transition is hyperemic with circumferential wall thickening. Colonic diverticulosis without evidence of acute diverticulitis. Postsurgical changes of the cecum suggesting appendectomy. Lymph nodes: Unremarkable Vasculature: No abdominal aortic aneurysm. Moderate atherosclerotic vascular disease. Pelvis: Evaluation of the pelvis is compromised by streak artifact from the left hip arthroplasty. Status post cystectomy. No significant free pelvic fluid. Soft Tissues: Ventral midline postsurgical changes. Right pelvic ileostomy for urinary diversion. Bones: Left hip arthroplasty. Mild degenerative changes of the pelvis and right hip. Lumbar spine fusion hardware. Partially included IMPRESSION: 1. Postsurgical changes of cystectomy with creation of a right lower quadrant ileal conduit and ostomy for urinary diversion. Severe left hydronephrosis with dilation of the proximal left ureter and mild urothelial enhancement. Caliber change of the left ureter as it crosses under the dilated loops of small bowel in the pelvis concerning for obstruction. No obstructing calculus. Recommend correlation with urinalysis given urothelial enhancement. 2. Small bowel obstruction with transition point in the right pelvis on series 2 images 68-64. This results in dilated fluid-filled loops of small bowel measuring up to 3 cm in diameter. Small bowel loops distal to the site of obstruction are hyperemic with mild circumferential wall thickening suggesting enteritis. 3. Colonic diverticulosis. 4. Additional chronic and/or incidental findings as above. Findings were discussed with the ordering provider Dr. Amrik Yap via telephone at 1055 AM on 06/13/2024. ACT 112: Positive. There are findings on this exam that require communication between the performing entity and the patient following Patient Test Result Information Act ([place] ACT 112) guidelines. Electronically signed by Juan Carlos Segura 06-13-2024 11:03 AM Chest X-Ray 06/13/24 12:23 HISTORY: NG tube placement. TECHNIQUE: Portable AP radiographs of the chest. COMPARISON: Chest CT dated 05/02/2024. Chest radiograph dated 05/02/2024. FINDINGS: NG tube tip and sideport overlies the gastric fundus in the left upper quadrant. Spinal stimulator lead overlies the midline mid thoracic spine. No focal lung consolidation. No pneumothorax or pleural effusion. Normal heart size. Left-sided aortic arch. Midline trachea. No acute osseous abnormality. Partially included lumbar fusion hardware. Spinal stimulator generator pack is partially included overlying the right lower quadrant of the abdomen. IMPRESSION: 1. Appropriately positioned NG tube with tip and sideport overlying the gastric fundus in the left upper quadrant. 2. No acute cardiopulmonary findings. Electronically signed by Juan Carlos Segura 06-13-2024 12:42 PM KUB X-Ray 06/17/24 07:36 KUB HISTORY: Acute onset abdominal pain with obstruction sbo COMPARISON: CT 06/13/2024 FINDINGS: Air-filled loops of large and small bowel. Small bowel loops measure up to approximately 3.2 cm. Surgical suture material noted within the pelvis. A spinal stimulator device is noted. Lumbar spinal fusion hardware. Left hip arthroplasty. No renal calculi. No ureteral calculi. No pneumoperitoneum or pneumatosis. No fracture. IMPRESSION: Persistent small bowel obstruction. Continued follow-up is needed. ACT 112: Negative or not required by law. The above report was generated using voice recognition software. It may contain grammatical, syntax or spelling errors. Electronically signed by: Alexi Epps M.D. 06/17/2024 9:37 AM Ordered Studies 06/13/24 09:39 CT abd pelvis IV con only Stat Hospital Course (1) SBO (small bowel obstruction): Small bowel obstruction Likely secondary to adhesions S/P post cystectomy and ileal conduit at [facility] 1 month ago Left hydroureteronephrosis--POA likely due to above --CT ABD:Postsurgical changes of cystectomy with creation of a right lower quadrant ileal conduit and ostomy for urinary diversion. Severe left hydronephrosis with dilation of the proximal left ureter and mild urothelial enhancement. Caliber change of the left ureter as it crosses under the dilated loops of small bowel in the pelvis concerning for obstruction. No obstructing calculus. Recommend correlation with urinalysis given urothelial enhancement. Small bowel obstruction with transition point in the right pelvis on series 2 images 68-64. This results in dilated fluid-filled loops of small bowel measuring up to 3 cm in diameter. Small bowel loops distal to the site of obstruction are hyperemic with mild circumferential wall thickening suggesting enteritis. Colonic diverticulosis. -Appreciate surgery input: Advised to discharge home today if tolerates low fiber diet Pain control Encouraged to ambulate Received IV fluids Tolerating low fiber diet Minimize narcotics as able Plan to discharge home today (2) Interstitial cystitis: History of interstitial cystitis and is status post cystectomy about 1 month ago with right ilial conduit he Has left hydronephrosis and may have UTI Urine culture noncontributory Empirically received Rocephin, Flagyl Advised to follow-up with urology as outpatient with repeat imaging patient understands and agrees with the plan. (3) Hydronephrosis, left: Plan Other chronic conditions: MDD RLS GERD HLD Continue home medications as able DVT Px: SCDs CODE STATUS Full code Disposition Home Total Time Total Time Spent Total Time Spent (In Minutes): 45 minutes Discharge Plan Discharge Items Patient Disposition: Home - Self-Care Reason For Visit: SBO Discharge Diagnosis: Small bowel obstruction Left hydroureteronephrosis H/O interstitial cystitis Activity: Per Instructions section Exercise/Sports: Gradually increase as tolerated Non-emergency contact: Primary Care Provider, Surgeon and Urologist Call non-emergency contact if: you have any medication questions, your symptoms worsen, your pain is concerning for you and you have a fever Follow-up/Referrals: Martita Wilkerson DO [Primary Care Provider] - (Date & Time 06/23/2024 3:00 PM Provider: Martita Wilkerson DO [facility]) Diet: Low Fiber Addtl Attending Provider Instructions: Follow-up with your primary care physician on 06/23/2024 3:00 PM Follow-up with your surgeon as advised Follow-up with your urologist in 2 to 3 weeks with imaging renal ultrasound/abdominal CT scan to ensure resolution of hydronephrosis -- Complete the antibiotic course as prescribed. --Continue low fiber diet for now. Follow-up with your PCP for further instructions -- Minimize/ avoid pain medications (hydrocodone) as it can cause recurrence of small bowel obstruction. Seek immediate medical attention if your symptoms reoccur or worsen Please review medication list provided on discharge for any medication changes as instructed. Please call if you have any questions or problems. You can reach a [facility] hospitalist on duty at [facility] 24 hours a day by calling [phone] Pending Studies at Discharge: No Stand-Alone Forms: [facility], Smoking Cessation Medications and DC Order Prescriptions: New cefdinir 300 mg capsule 300 mg PO BID Qty: 6 0RF metronidazole 250 mg tablet 250 mg PO BID Qty: 6 0RF Continued omeprazole 20 mg tablet,delayed release (DR/EC) 20 mg PO QAM rizatriptan 10 mg tablet 10 mg PO DIRECTED PRN (Reason: Migraine Headache) duloxetine 60 mg capsule,delayed release(DR/EC) 60 mg PO DAILY Qty: 30 4RF hydrocodone-acetaminophen 10-325 mg tablet 1 tab PO Q8H PRN (Reason: pain) Qty: 90 0RF ondansetron HCl 4 mg tablet 4 mg PO Q8H gabapentin 300 mg capsule 300 mg PO BID Qty: 60 3RF rosuvastatin [Crestor] 10 mg Tablet 10 mg PO QAM ropinirole 1 mg tablet 1 mg PO DAILY metoclopramide HCl 10 mg tablet 10 mg PO QID PRN (Reason: Nausea And Vomiting) Discharge Orders: Discharge Order (Routine); Ordered 06/17/24 Ordered By: Eugenio Singh Admission Data Admit Date/Time: 06/13/24 13:34 Attending Provider: Eugenio Singh Admit Provider: Tapan Cavazos Primary Care Provider: Martita Wilkerson Other Providers: Tapan Cavazos; Leo Cain; Yahir Glover; [place]
== END 2024-06-17 15:29 | disposition home health service (06) | DRG 389 ==
LOC: ED 09:07 → 3N 13:34 → SUATTDRO 13:34 → 3N 16:08